=== PATIENT | female | born 1950 | race African-American/Black ===

== ENCOUNTER 2017-08-11 13:27 | Emergency (ER) | payer MEDICARE ==
--- NOTE | 2017-08-11 14:54 | RAD ---
PORTABLE UPRIGHT FRONTAL CHEST RADIOGRAPH: 08/11/2017 HISTORY: Trauma. Fall. COMPARISON: None. FINDINGS: Bilateral total shoulder arthroplasties are present. No pneumothorax, pleural fluid, focal consolida tion, or alveolar edema. Heart and mediastinal contours are stable. IMPRESSION: No acute findings. POS: [facility]
--- NOTE | 2017-08-11 14:57 | RAD ---
RIGHT SHOULDER THREE VIEWS: 08/11/2017 HISTORY: Fall. Trauma. Pain. COMPARISON: None. FINDINGS: There is mild degenerative change at the right acromioclavicular interspace. No widening of the AC o r CC interspace is seen. There is a total shoulder arthroplasty on the right with no evidence for ac twenty-nine palms fracture or dislocation. IMPRESSION: No acute findings. POS: [facility]
== END 2017-08-11 14:49 | disposition home or self-care (01) ==
LOC: ERS 13:27
DX: S43.401A Unspecified sprain of right shoulder joint, initial encounter (principal); E78.5 Hyperlipidemia, unspecified; I25.2 Old myocardial infarction; I11.0 Hypertensive heart disease with heart failure; I50.9 Heart failure, unspecified; Z86.73 Personal history of transient ischemic attack (TIA), and cerebral infarction without residual deficits; Z79.899 Other long term (current) drug therapy; W07.XXXA Fall from chair, initial encounter
CPT/HCPCS: 71045

== ENCOUNTER 2017-09-02 14:20 | Outpatient (CLI) | payer MEDICARE | END 2017-09-02 14:21 | disposition home or self-care (01) | LOC: BICMAMMO 14:20 | PROVIDERS: ATTEND Family Medicine | DX: Z12.31 Encounter for screening mammogram for malignant neoplasm of breast (principal) | CPT/HCPCS: 77063; 77067 ==

== ENCOUNTER 2017-10-05 21:39 | Inpatient (IN) | payer MEDICARE ==
[2017-10-05 23:06] LABS: Band 9 % (5-11); Hypochromia SLIGHT = 6-15 cells (100X) (0-5/hpf); Large Platelets SLIGHT; Lymphocytes 17 % (21-51); MDiff Complete? YES; Macrocytosis SLIGHT = 6-15 cells (100X) (0-5/hpf); Mean Corpuscular HGB CONC 32.9 g/dL (32.0-36.0); Mean Corpuscular Hemoglobin 37.7 pg (27.0-31.0); Mean Platelet Volume 11.3 fL (7.4-10.4); Monocytes 5 % (0-10); Neutrophil 69 % (42-75); PLT Morphology Comment Appears Increased; Platelet Count 428 thou/uL (130-400); RBC Distribution Width 16.4 % (11.5-14.5); White Blood Cell (WBC) Count 4.9 thou/uL (4.8-10.8)
[2017-10-05 23:07] LABS: ALT (SGPT) 16 U/L (8-55); AST (SGOT) 15 U/L (5-34); Alkaline Phosphatase 105 U/L (40-150); Anion Gap 16 mmol/L (10-20); BUN (Urea Nitrogen) 11 mg/dL (9.8-20.1); Bilirubin, Total 0.6 mg/dL (0.2-1.2); Calc. Creatinine Clearance 0 mL/min (70-130); Calcium 9.3 mg/dL (7.8-10.44); Carbon Dioxide 22 mmol/L (23-31); Chloride 100 mmol/L (98-107); Estimated GFR-MDRD 54; Globulin 3.5 g/dL (2.4-3.5); Glucose 487 mg/dL (80-115); Potassium 3.7 mmol/L (3.5-5.1); Protein, Total 7.5 g/dL (6.0-8.3); Sodium 134 mmol/L (136-145)
[2017-10-05 23:12] LABS: Troponin I 0.017 ng/mL (< 0.028)
--- NOTE | 2017-10-05 23:26 | RAD ---
FRONTAL VIEW CHEST: 10/05/17 COMPARISON: 08/11/17 INDICATION: Cough. History of fainting. Prior myocardial infarction. FINDINGS: There is accentuation of the cardiac silhouette by portable technique. There is enlargement of the pu lmonary vasculature. No significant effusion or discrete pneumothorax. Leads overlying chest limiting detail. Chest otherwise similar appearing. IMPRESSION: Evidence of mild edema, indicating CHF. Correlate clinically. Imaging followup may prove useful to confirm resolution. POS: [facility]
[2017-10-05 23:27] LABS: CK (CPK) 50 U/L (29-168); Lipase 17 U/L (8-78)
[2017-10-06] MEDS ORDERED: Furosemide 40 MG/4 ML VIAL ONE (00:05)
--- NOTE | 2017-10-06 00:35 | PDOC.FPRHP ---
- History of Present Illness Chief Complaint: SOB and syncope History of Present Illness: Patient is a 67YO AAF w/ a PMH significant for CHF with preserved EF & HTN who presents to the ED with a chief complaint of progressively worsening SOB with exertion that has been ongoing for the last month. The patient states that her SOB has gotten so bad that she is barely able to stand and walk from room to room in her home without assistance. She also endorses some associated chest and abdominal pain that she describes as the worst pain that she has felt in her life that is exacerbated with standing and movement. She also endorses an associated cough that is occasionally productive of clear sputum and nausea. Lastly, the patient's daughter reports 2 syncopal episodes that she witnessed today while helping her mother from the bathroom and to her bedroom. The daughter stated that upon standing the patient lost consciousness for several seconds and felt very warm and was shaky. The patient states that she has never had syncopal episodes like this prior to today which prompted her to come to the ED for evaluation. ED Course: Patient was given 40mg IV lasix and 81mg ASA. - Allergies/Adverse Reactions Allergies Allergy/AdvReac Type Severity Reaction Status Date / Time adhesive Allergy Verified 06/13/16 10:12 cefazolin sodium [From Ancef] Allergy Rash Verified 06/13/16 10:12 Cephalosporins Allergy Rash Verified 06/13/16 10:12 codeine Allergy Hives Verified 06/13/16 10:12 Iodinated Contrast- Oral and Allergy Emesis Verified 06/13/16 10:12 IV Dye [Iodinated Contrast Media - IV Dye] meperidine HCl [From Demerol] Allergy Rash Verified 06/13/16 10:12 naproxen sodium [From Aleve] Allergy "chest Verified 06/13/16 10:12 pain" peanut Allergy Verified 06/13/16 10:12 - Home Medications Medication Instructions Recorded Confirmed Type Omeprazole 20 mg PO DAILY 11/04/16 10/06/17 History Aspirin [Aspirin Chewable Tablet] 81 mg PO DAILY #30 tab 11/05/16 10/06/17 Rx Albuterol Sulfate HFA (OR) 0 puff INH PRN PRN 10/06/17 10/06/17 History [Proventil Hfa (or)] Aspirin 81 mg PO HS 10/06/17 10/06/17 History Atorvastatin Calcium [Lipitor] 40 mg PO HS 10/06/17 10/06/17 History Cholecalciferol (Vitamin D3) 1,000 unit PO DAILY 10/06/17 10/06/17 History [Vitamin D3] Lisinopril/Hydrochlorothiazide 1 tablet PO DAILY PRN 10/06/17 10/06/17 History [Lisinopril-Hctz 20-25 mg Tab] Loratadine [Claritin] 10 mg PO DAILY 10/06/17 10/06/17 History Triamcinolone Acetonide [Nasacort 2 spray EA NARE DAILY PRN 10/06/17 10/06/17 History Allergy 24 HR] - History PMHx: h/o CVA & TX, HTN, DMII, HLD, GERD, macrocytic anemia PSHx: Laparoscopic laminectomy, herniated disc replacement, section., bilateral shoulder shoulder sx,. B/L knee replacement FHx: Mother & father from MIs Social: No EtOH, tobacco or drug abuse. - Review of Systems General: reports: weight/appetite/sleep changes. denies: fever/chills Eyes: denies: eye pain, vision changes ENT: denies: nasal congestion, rhinorrhea Respiratory: reports: cough, shortness of breath, exercise intolerance Cardiovascular: reports: chest pain, paroxysmal nocturnal dyspnea, orthopnea. denies: palpitation Gastrointestinal: reports: nausea, abdominal pain. denies: vomiting, diarrhea, constipation, GI bleeding Genitourinary: denies: dysuria Skin: denies: rashes Musculoskeletal: reports: tenderness. denies: swelling Neurological: reports: syncope. denies: seizure - Vital signs BP: 102/78 HR: 82 RR: 19 Tmax: 97.9F Pox: 95% on 5.0L nasal canula Wt: 110.68kg - Physical Exam Constitutional: awake, alert and oriented, other (In moderate distress 2/2 difficulty breathing.) HEENT: normocephalic and atraumatic, EOMI, conjunctiva clear, grossly normal vision, grossly normal hearing Neck: FROM Chest: other (tender to palpation over left chest) Heart: RRR, normal S1/S2, no murmurs/rubs/gallops, pulses present, no edema Lungs: CTAB, no respiratory distress, good air movement, no wheezing Abdomen: soft, non-tender, bowel sounds present, no masses/distention Musculoskeletal: normal structure, ROM grossly normal Neurological: no focal deficit, CN II-XII intact, normal sensation Skin: no rash/lesions, good turgor Heme/Lymphatic: no unusual bruising or bleeding Psychiatric: normal mood and affect, good judgment and insight, intact recent and remote memory FMR H&P: Results - Labs Result Diagrams: 10/05/17 22:36 10/05/17 22:36 Lab results: WBC 4.9 thou/uL (4.8-10.8) 10/05/17 22:36 Hgb 9.0 g/dL (12.0-16.0) L 10/05/17 22:36 Hct 27.5 % (36.0-47.0) L 10/05/17 22:36 MCV 114.0 fL (78.0-98.0) H 10/05/17 22:36 Plt Count 428 thou/uL (130-400) H 10/05/17 22:36 Band Neuts % (Manual) 9 % (5-11) 10/05/17 22:36 Sodium 134 mmol/L (136-145) L 10/05/17 22:36 Potassium 3.7 mmol/L (3.5-5.1) 10/05/17 22:36 Chloride 100 mmol/L (98-107) 10/05/17 22:36 Carbon Dioxide 22 mmol/L (23-31) L 10/05/17 22:36 BUN 11 mg/dL (9.8-20.1) 10/05/17 22:36 Creatinine 1.20 mg/dL (0.6-1.1) H 10/05/17 22:36 Glucose 487 mg/dL (80-115) H 10/05/17 22:36 Calcium 9.3 mg/dL (7.8-10.44) 10/05/17 22:36 Total Bilirubin 0.6 mg/dL (0.2-1.2) 10/05/17 22:36 AST 15 U/L (5-34) 10/05/17 22:36 ALT 16 U/L (8-55) 10/05/17 22:36 Alkaline Phosphatase 105 U/L (40-150) 10/05/17 22:36 Creatine Kinase 50 U/L (29-168) 10/05/17 22:36 CK-MB (CK-2) 1.0 ng/mL (0-6.6) 10/05/17 22:36 B-Natriuretic Peptide 366.9 pg/mL (0-100) H 10/05/17 22:36 Serum Total Protein 7.5 g/dL (6.0-8.3) 10/05/17 22:36 Albumin 4.0 g/dL (3.4-4.8) 10/05/17 22:36 Lipase 17 U/L (8-78) 10/05/17 22:36 - Radiology Interpretation Chest x-ray Status: image reviewed by me, report reviewed by me (Mild pulmonary edema consistent with CHF.) FMR H&P: A/P - Problem List (1) Diastolic congestive heart failure Current Visit: No Status: Acute Code(s): I50.30 - UNSPECIFIED DIASTOLIC ( CONGESTIVE) HEART FAILURE (2) Diabetes mellitus type 2 in obese Current Visit: Yes Status: Acute Code(s): E11.69 - TYPE 2 DIABETES MELLITUS WITH OTHER SPECIFIED COMPLICATION; E66.9 - OBESITY, UNSPECIFIED (3) LUISA (acute kidney injury) Current Visit: Yes Status: Acute Code(s): N17.9 - ACUTE KIDNEY FAILURE, UNSPECIFIED (4) HTN (hypertension) Current Visit: Yes Status: Chronic Code(s): I10 - ESSENTIAL (PRIMARY) HYPERTENSION (5) HLD (hyperlipidemia) Current Visit: No Status: Acute Code(s): E78.5 - HYPERLIPIDEMIA, UNSPECIFIED (6) GERD (gastroesophageal reflux disease) Current Visit: No Status: Acute Code(s): K21.9 - GASTRO-ESOPHAGEAL REFLUX DISEASE WITHOUT ESOPHAGITIS (7) Macrocytic anemia Current Visit: No Status: Acute Code(s): D53.9 - NUTRITIONAL ANEMIA, UNSPECIFIED - Plan 67YOF w/ PMH of CHF w/ preserved EF, h/o TX & CVA, HTN, and HLD who comes in with a CC of increased SOB on exertion that has gotten progressively worse over the last month with associated atypical chest pain and 2 syncopal episodes today prior to presentation. 1. Acute Hypoxic Respiratory Distress: - Could be 2/2 an acute CHF exacerbation vs. a PE - Patient satting around 95% on 5-5.5L via nasal canula. Will order an ABG & wean O2 supplementation as tolerated. - CXR significant for mild pulmonary edema. Was given 1 dose of IV lasix in ED but will not continue for now as PE was not remarkable for fluid overload. - Will order a duoneb treatment and reassess patient for signs of improvement. - Will get a VQ scan to r/o an PE. 2. Atypical chest pain: - Could be 2/2 costochondritis from coughing vs. anemia. TX less likely as troponin was negative. - Was given 81mg ASA in the ED. - Getting a VQ scan to r/o a PE. 3. LUISA: - BUN:Cr ratio of 9 suggesting an intrinsic cause. - Will order a urine Na & Cr & urine microalbumin. - Will continue with PO hydration. 4. Macrocytic anemia: - Hgb 9 on admission. - Will type and screen and consider pRBC transfusion if VQ scan is negative. 5. CHF with preserved EF: - Will order an echo. - Will resume home meds. 6. HTN: - Will resume home meds 7. HLD: - Will resume home meds 8. DMII: - Not on any medications at home but BG on admission was 487. - Will start on sliding scale and check an A1c. 9. GERD: - Will resume home meds. 10. h/o CVA: - Aware. - Will resume home meds. 11. h/o TX: - Aware. - Will resume home meds. FMR H&P: Upper Level - Pertinent history Lanette Mendez is a 67 year old female who presented to the ED with progressive dyspnea with exertion and reduced exercise tolerance. She complains of significant shortness of breath that has been ongoing for several weeks. She reports having 2 syncopal episodes yesterday which were witnessed by her daughters. These occurred as patient was trying to ambulate to the bathroom. - Pertinent findings Patient experiencing significant respiratory distress on 2L NC and satting in the 80s. Experiencing dyspnea with exertion and only able to speak in short sentences. Oxygen increased from 2 L to 5 L. Oxygen saturations improved, and patient appears more comfortable after several minutes. - Plan Date/Time: 10/06/17 0029 I, Stephanie Cardenas, have evaluated this patient and agree with findings/plan as outlined by project management intern resident. Pertinent changes/additions are listed here. Acute hypoxic respiratory failure -differentials include CHF exacerbation, PE. - will obtain V/Q scan due to iodine contrast allergy - given elevated BNP and history of CHF will continue treatment for presumed CHF exacerbation until VQ comes back - will get Echo as well. Acute kidney injury - BUN:Cr < 20; - likely related to intrinsic causes; urine studies for further eval Diabetes Mellitus - A1C - pt will likely need insulin. Hyperlipidemia - continue home meds GERD - continue home meds. Attending Addendum - Attending Addendum Date/Time: 10/06/17 9980 I personally evaluated the patient and discussed the management with Dr. Vega. I agree with the History, Examination, Assessment and Plan documented above with any addition or exceptions noted below. The patient's VQ scan is suggestive of PE. She is requiring 5 L Oxygen via NC. Trops are indeterminate and we will continue trending. LE dopplers are ordered. Echo is pending. Will treat with therapeutic lovenox.
[2017-10-06 02:15] LABS: Troponin I 0.043 ng/mL (< 0.028)
[2017-10-06] MEDS ORDERED: Dextrose 5% in Water 1,000 ML IV PRN ×2 (02:29→19:34)
[2017-10-06] MEDS ORDERED: Insulin Regular 300 UNITS/3 ML VIAL SC PRN (02:29)
[2017-10-06] MEDS ORDERED: Dextrose 50% Abboject 50 ML SYRINGE SLOW IVP PRN ×2 (02:29→19:34)
[2017-10-06 05:09] LABS: Hemoglobin A1c 14.5 % (4.0-6.0)
[2017-10-06 05:23] VITALS: BMI 36.9
[2017-10-06 05:24] LABS: Troponin I 0.035 ng/mL (< 0.028)
[2017-10-06] MEDS ORDERED: Furosemide 40 MG/4 ML VIAL SLOW IVP SCH (06:00)
[2017-10-06 06:38] LABS: Creatinine, Urine 43.45 mg/dL (47-110); Microalbumin Urine 2.2 mg/dL (0.5-50.0); Microalbumin/Creat Ratio 50.6 mg/g (Less than 30)
--- NOTE | 2017-10-06 08:08 | NM ---
PRELIMINARY REPORT/[facility]/EMERGENTY AFTER-HOURS PROCEDURE NM Lung Perfusion and Ventilation Scan EXAM DATE/TIME: Exam ordered 10/06/2017 3:44 AM CLINICAL HISTORY: 67 years old, female; Signs and symptoms; Dyspnea; Patient HX: Dvt, dyspnea TECHNIQUE: Nuclear Medicine ventilation and perfusion images of the lungs were obtained in multiple projections following radiopharmaceutical inhalation followed by injection of Tc99m MAA. COMPARISON: No relevant prior studies available. FINDINGS: Ventilation: Normal anterior and posterior projection ventilation images. Perfusion: There is equal to 2 large perfusion defects in the left lung and the equivalent of one lar ge and one moderate sized perfusion defect in the right lung, all of which appear unmatched comparati ve ventilation image. No chest radiograph provided for correlation. IMPRESSION: In the absence of the chest radiograph, these findings could represent intermediate or high probabili ty for pulmonary embolus, faver high probability for pulmonary embolus. Recommend correlation with est radiograph. Findings discussed with Shania Meredith RN at time of interpretation. Thank you for allowing us to participate in the care of your patient. Dictated and Authenticated by: Merrick Red MD 10/06/2017 5:32 AM Central Time ([place] & [place]) FINAL REPORT VENTILATION PERFUSION SCAN: History: 67-year-old with dyspnea. Dose: 6.6 mCi Technetium 99M MAA for the perfusion portion of the exam and 9.5 mCi Xenon 133 for vent ilation portion. FINDINGS: Images demonstrate areas of perfusion defects seen in the right and left lung. There appears to be tw o large areas on the left and one large area on the right. Findings concerning for pulmonary emboli. IMPRESSION: High probability lung perfusion scan for pulmonary emboli. POS: [facility]
[2017-10-06] MEDS: Enoxaparin Sodium 100 MG/ML SYRINGE SC SCH ×2 (08:41→21:11)
[2017-10-06] MEDS: Lisinopril/Hydrochlorothiazide 20/25 mg Tablet PO SCH ×2 (08:42→21:11)
--- NOTE | 2017-10-06 08:59 | ULT ---
VENOUS DUPLEX SONOGRAM BILATERAL LOWER EXTREMITY: HISTORY: Dyspnea. Pulmonary embolus. FINDINGS: Good color and spectral Doppler flow are present within the common femoral veins and greater saphenou s junctions, the femoral and deep femoral vein, and the left popliteal and posterior tibial veins. Echogenic thrombus with lack of compressibility involves the right popliteal and posterior tibial vei ns. IMPRESSION: Deep vein thrombosis involving the right popliteal and posterior tibial veins. Patient with known ab normal ventilation perfusion lung scan and pulmonary embolus. POS: [facility]
[2017-10-06] MEDS ORDERED: Non-Formulary Item 1 EACH (Omeprazole [Omeprazole] 20 MG) PO SCH (09:00)
[2017-10-06] MEDS ORDERED: Enoxaparin Sodium 40 MG/0.4 ML SYRINGE SC SCH (09:00)
[2017-10-06 09:42] LABS: Troponin I 0.049 ng/mL (< 0.028)
[2017-10-06 11:25] LABS: pH, Arterial 7.58 (7.35-7.45)
[2017-10-06 11:26] LABS: Actual Bicarbonate (HCO3a) 22.9 mEq/L (22-28); Base Excess (BEa) 2.6 mEq/L (-2.0 to +3.0); CO2 Tension 25.1 mmHg (35.0-45.0); O2 Tension (PaO2) 59.2 mmHg (> 80.0)
[2017-10-06 11:27] LABS: ALV-art Gradient 166.105 (0-20); Analyzer IN Cardio OR; Potassium - ABG Lab 3.6 mmol/L (3.70-5.30); Puncture Site RRA
--- NOTE | 2017-10-06 11:36 | PDOC.FM ---
- Subjective Subjective: pt. just returned from doppler ultrasound. was feeling mildly short of breath, just had NC placed back on. no reported leg pain or chest pressure. - Objective MAR Reviewed: Yes Vital Signs & Weight: Vital Signs (12 hours) Temp Pulse Resp BP Pulse Ox 10/06/17 08:35 88 18 104/62 93 L 10/06/17 07:18 97.7 F 87 20 107/62 93 L 10/06/17 04:10 93 L 10/06/17 03:35 20 10/06/17 02:20 96.3 F L 100 18 94 L Weight Weight 110.314 kg Result Diagrams: 10/05/17 22:36 10/05/17 22:36 <Елена Atwood - Last Filed: 10/06/17 20:25> - Objective Vital Signs & Weight: Vital Signs (12 hours) Temp Pulse Pulse Pulse Resp BP BP 10/07/17 12:00 98.0 F 86 18 10/07/17 11:50 86 92 101/65 10/07/17 09:31 86 100/57 L 10/07/17 08:00 98.2 F 86 20 10/07/17 07:20 10/07/17 03:56 98.5 F 89 20 10/07/17 02:44 BP BP BP Pulse Ox 10/07/17 12:00 101/65 95 10/07/17 11:50 108/68 10/07/17 09:31 10/07/17 08:00 100/57 L 95 10/07/17 07:20 94 L 10/07/17 03:56 98/55 L 93 L 10/07/17 02:44 99 Weight Weight 110.314 kg I&O: 10/06/17 10/07/17 10/08/17 06:59 06:59 06:59 Intake Total 1380 Output Total 3350 -1969 Result Diagrams: 10/07/17 05:05 10/07/17 05:05 <Renuka Colmenares - Last Filed: 10/07/17 13:38> Phys Exam - Physical Examination Constitutional: NAD Respiratory: no wheezing, no rales, no rhonchi, clear to auscultation bilateral Cardiovascular: RRR, no significant murmur Gastrointestinal: soft, non-tender Musculoskeletal: no edema, pulses present Neurological: moves all 4 limbs Psychiatric: normal affect, A&O x 3 <Елена Atwood - Last Filed: 10/06/17 20:25> Dx/Plan (1) Pulmonary embolus Code(s): I26.99 - OTHER PULMONARY EMBOLISM WITHOUT ACUTE COR PULMONALE Status : Acute (2) DVT (deep venous thrombosis) Code(s): I82.409 - ACUTE EMBOLISM AND THOMBOS UNSP DEEP VN UNSP LOWER EXTREMITY Status: Acute (3) LUISA (acute kidney injury) Code(s): N17.9 - ACUTE KIDNEY FAILURE, UNSPECIFIED Status: Acute (4) Diabetes mellitus type 2 in obese Code(s): E11.69 - TYPE 2 DIABETES MELLITUS WITH OTHER SPECIFIED COMPLICATION; E66.9 - OBESITY, UNSPECIFIED Status: Acute (5) HTN (hypertension) Code(s): I10 - ESSENTIAL (PRIMARY) HYPERTENSION Status: Chronic (6) GERD (gastroesophageal reflux disease) Code(s): K21.9 - GASTRO-ESOPHAGEAL REFLUX DISEASE WITHOUT ESOPHAGITIS Status: Acute (7) HLD (hyperlipidemia) Code(s): E78.5 - HYPERLIPIDEMIA, UNSPECIFIED Status: Acute - Plan Plan: 67 yo F with DVT, PE 1. DVT and PE -confirmed with doppler and V/Q -on therapeutic lovenox -will order anti factor X (4 hrs after last dose) to check if therapeutic dose -non-hypoxic on non-rebreather -if worsens consider bipap and transfer to [facility] 2. DM -HbA1c 14, POC was 500s -continue aggressive sliding scale -start on metformin -diabetic education 3. HTN -continue home meds 4. h/o TN -aware, continue home meds 5. h/o CVA -aware, continue home meds Plan discussed with dr. colmenares <Елена Atwood - Last Filed: 10/06/17 20:25> (1) Diastolic congestive heart failure Code(s): I50.30 - UNSPECIFIED DIASTOLIC (CONGESTIVE) HEART FAILURE Status: Acute (2) Diabetes mellitus type 2 in obese Code(s): E11.69 - TYPE 2 DIABETES MELLITUS WITH OTHER SPECIFIED COMPLICATION; E66.9 - OBESITY, UNSPECIFIED Status: Acute (3) LUISA (acute kidney injury) Code(s): N17.9 - ACUTE KIDNEY FAILURE, UNSPECIFIED Status: Acute (4) HTN (hypertension) Code(s): I10 - ESSENTIAL (PRIMARY) HYPERTENSION Status: Chronic (5) HLD (hyperlipidemia) Code(s): E78.5 - HYPERLIPIDEMIA, UNSPECIFIED Status: Acute (6) GERD (gastroesophageal reflux disease) Code(s): K21.9 - GASTRO-ESOPHAGEAL REFLUX DISEASE WITHOUT ESOPHAGITIS Status: Acute (7) Macrocytic anemia Code(s): D53.9 - NUTRITIONAL ANEMIA, UNSPECIFIED Status: Acute <Renuka Colmenares - Last Filed: 10/07/17 13:38> Attending Addendum - Attending Addendum Date/Time: 10/06/17 0165 I personally evaluated the patient and discussed the management with Dr. Atwood. I agree with the History, Examination, Assessment and Plan documented above with any addition or exceptions noted below. Pt seen and evaluated. She was tachypnic and nurses had trouble getting o2 sats. Respiratory natalie abg. Pt slowed breathing down and sats were 95% on 5 L via nc. Pt with PE and DVT on therapeutic lovenox. <Renuka Colmenares - Last Filed: 10/07/17 13:38>
[2017-10-06 13:02] LABS: Troponin I 0.055 ng/mL (< 0.028)
[2017-10-06] MEDS: metFORMIN 500 MG TAB PO SCH (16:39)
[2017-10-06] MEDS ORDERED: Insulin Regular 300 UNITS/3 ML VIAL SC SCH (16:45)
[2017-10-06 17:22] LABS: Troponin I 0.045 ng/mL (< 0.028)
[2017-10-06] MEDS: Atorvastatin Calcium 40 MG TAB PO SCH (21:11)
[2017-10-06] MEDS: HumaLOG 300 UNITS/3 ML VIAL SC PRN (21:20)
[2017-10-07 05:47] LABS: ALT (SGPT) 13 U/L (8-55); AST (SGOT) 15 U/L (5-34); Albumin 3.6 g/dL (3.4-4.8); Alkaline Phosphatase 95 U/L (40-150); Anion Gap 12 mmol/L (10-20); BUN (Urea Nitrogen) 15 mg/dL (9.8-20.1); Bilirubin, Total 0.7 mg/dL (0.2-1.2); Calc. Creatinine Clearance 91 mL/min (70-130); Calcium 8.9 mg/dL (7.8-10.44); Carbon Dioxide 28 mmol/L (23-31); Chloride 99 mmol/L (98-107); Estimated GFR-MDRD 65; Globulin 3.4 g/dL (2.4-3.5); Glucose 147 mg/dL (80-115); Potassium 3.2 mmol/L (3.5-5.1); Sodium 136 mmol/L (136-145)
[2017-10-07 05:55] LABS: Band 10 % (5-11); Eosinophils 1 % (0-10); Hemoglobin 8.7 g/dL (12.0-16.0); Lymphocytes 53 % (21-51); MDiff Complete? YES; Mean Corpuscular HGB CONC 33.4 g/dL (32.0-36.0); Mean Corpuscular Hemoglobin 38.3 pg (27.0-31.0); Mean Platelet Volume 10.8 fL (7.4-10.4); Monocytes 4 % (0-10); Neutrophil 32 % (42-75); PLT Morphology Comment Appears Adequate; Platelet Count 392 thou/uL (130-400); Red Blood Cell (RBC) Count 2.27 mill/uL (4.20-5.40); White Blood Cell (WBC) Count 5.8 thou/uL (4.8-10.8)
[2017-10-07] MEDS ORDERED: Potassium Chloride 40 MEQ in Premix Bag 1 BAG IVPB SCH (06:30)
[2017-10-07] MEDS ORDERED: Potassium Chloride 20 MEQ in Premix Bag 1 BAG IVPB SCH (07:00)
[2017-10-07] MEDS ORDERED: Prevnar 13-Val Conj/PF 0.5 ML SYRINGE IM ONE (09:00)
[2017-10-07] MEDS: metFORMIN 500 MG TAB PO SCH ×2 (09:29→17:40)
[2017-10-07] MEDS: Lisinopril/Hydrochlorothiazide 20/25 mg Tablet PO SCH ×2 (09:31→20:41)
[2017-10-07] MEDS: Potassium Chloride 20 MEQ in Premix Bag 1 BAG IVPB SCH ×2 (09:32→10:48)
[2017-10-07] MEDS: Enoxaparin Sodium 100 MG/ML SYRINGE SC SCH ×2 (09:32→20:42)
--- NOTE | 2017-10-07 09:33 | PDOC.FM ---
- Subjective Subjective: no acute events overnight. pt still has chest pain and feels SOB worse with exertion and walking - Objective MAR Reviewed: Yes Vital Signs & Weight: Vital Signs (12 hours) Temp Pulse Resp BP Pulse Ox 10/07/17 08:00 86 20 100/57 L 95 10/07/17 07:20 94 L 10/07/17 03:56 98.5 F 89 20 98/55 L 93 L 10/07/17 02:44 99 10/06/17 23:42 98.9 F 89 22 H 99/63 93 L Weight Weight 110.314 kg I&O: 10/06/17 10/07/17 10/08/17 06:59 06:59 06:59 Intake Total 1380 Output Total 3350 Result Diagrams: 10/07/17 05:05 10/07/17 05:05 <Елена Atwood - Last Filed: 10/07/17 09:29> - Objective Vital Signs & Weight: Vital Signs (12 hours) Temp Pulse Pulse Pulse Resp BP BP 10/07/17 12:00 98.0 F 86 18 10/07/17 11:50 86 92 101/65 10/07/17 09:31 86 100/57 L 10/07/17 08:00 98.2 F 86 20 10/07/17 07:20 BP BP BP Pulse Ox 10/07/17 12:00 101/65 95 10/07/17 11:50 108/68 10/07/17 09:31 10/07/17 08:00 100/57 L 95 10/07/17 07:20 94 L Weight Weight 110.314 kg I&O: 10/06/17 10/07/17 10/08/17 06:59 06:59 06:59 Intake Total 1380 Output Total 3350 Result Diagrams: 10/07/17 05:05 10/07/17 05:05 <Renuka Paul - Last Filed: 10/07/17 17:08> Phys Exam - Physical Examination Respiratory: no wheezing, no rhonchi, clear to auscultation bilateral Psychiatric: A&O x 3 Deviation from normal: mild TTP in BLE, no swelling, erythema or palpable cord <Елена Atwood - Last Filed: 10/07/17 09:29> Dx/Plan (1) Pulmonary embolus Code(s): I26.99 - OTHER PULMONARY EMBOLISM WITHOUT ACUTE COR PULMONALE Status : Acute (2) DVT (deep venous thrombosis) Code(s): I82.409 - ACUTE EMBOLISM AND THOMBOS UNSP DEEP VN UNSP LOWER EXTREMITY Status: Acute (3) LUISA (acute kidney injury) Code(s): N17.9 - ACUTE KIDNEY FAILURE, UNSPECIFIED Status: Acute (4) Diabetes mellitus type 2 in obese Code(s): E11.69 - TYPE 2 DIABETES MELLITUS WITH OTHER SPECIFIED COMPLICATION; E66.9 - OBESITY, UNSPECIFIED Status: Acute (5) HTN (hypertension) Code(s): I10 - ESSENTIAL (PRIMARY) HYPERTENSION Status: Chronic (6) GERD (gastroesophageal reflux disease) Code(s): K21.9 - GASTRO-ESOPHAGEAL REFLUX DISEASE WITHOUT ESOPHAGITIS Status: Acute (7) HLD (hyperlipidemia) Code(s): E78.5 - HYPERLIPIDEMIA, UNSPECIFIED Status: Acute - Plan Plan: 67 yo F with history of DVT here with DVT/PE 1. Unprovoked DVT and PE -non hyposic on 5L NC -therapeutic lovenox 2. Macrocytic anemia 3. Hypokalemia -replaced -checked mg 4. DM -controlled -started metformin -aggressive SS -diabetes education 5.Low BPs -hold lisinopril dose is SBP <100 dvt ppx: th lovenox dispo: wean O2, pain control discussed with Dr. Paul <Елена Atwood - Last Filed: 10/07/17 09:29> (1) Diastolic congestive heart failure Code(s): I50.30 - UNSPECIFIED DIASTOLIC (CONGESTIVE) HEART FAILURE Status: Acute (2) Diabetes mellitus type 2 in obese Code(s): E11.69 - TYPE 2 DIABETES MELLITUS WITH OTHER SPECIFIED COMPLICATION; E66.9 - OBESITY, UNSPECIFIED Status: Acute (3) LUISA (acute kidney injury) Code(s): N17.9 - ACUTE KIDNEY FAILURE, UNSPECIFIED Status: Acute (4) HTN (hypertension) Code(s): I10 - ESSENTIAL (PRIMARY) HYPERTENSION Status: Chronic (5) HLD (hyperlipidemia) Code(s): E78.5 - HYPERLIPIDEMIA, UNSPECIFIED Status: Acute (6) GERD (gastroesophageal reflux disease) Code(s): K21.9 - GASTRO-ESOPHAGEAL REFLUX DISEASE WITHOUT ESOPHAGITIS Status: Acute (7) Macrocytic anemia Code(s): D53.9 - NUTRITIONAL ANEMIA, UNSPECIFIED Status: Acute <Renuka Paul - Last Filed: 10/07/17 17:08> Attending Addendum - Attending Addendum Date/Time: 10/07/17 3107 I personally evaluated the patient and discussed the management with Dr. Atwood. I agree with the History, Examination, Assessment and Plan documented above with any addition or exceptions noted below. Patient is much less anxious this morning. She has however agreed to start an ssri. She is still requiring 5 L oxygen but is breathing easier. Will continue current treatment and try to wean O2. <Renuka Paul - Last Filed: 10/07/17 17:08>
[2017-10-07] MEDS ORDERED: Potassium Chloride 20 MEQ TAB PO SCH (10:30)
[2017-10-07] MEDS: Acetaminophen 325 MG TAB PO PRN (10:48)
[2017-10-07] MEDS: HumaLOG 300 UNITS/3 ML VIAL SC PRN ×2 (11:52→17:41)
--- NOTE | 2017-10-07 12:07 | EKG ---
Test Reason : Blood Pressure : / mmHG Vent. Rate : 078 BPM Atrial Rate : 078 BPM P-R Int : 164 ms QRS Dur : 098 ms QT Int : 442 ms P-R-T Axes : 053 005 -31 degrees QTc Int : 503 ms Normal sinus rhythm T wave abnormality, consider anterior ischemia and possibly inferior ischemia. Prolonged QT Abnormal ECG When compared with ECG of 05-OCT-2017 21:42, (Unconfirmed) Inverted T waves have replaced nonspecific T wave abnormality in Inferior leads T wave inversion now evident in Anterior leads Nonspecific T wave abnormality, improved in Lateral leads QT has lengthened Confirmed by CAIO MCGOWAN ([id number]) on 10/07/2017 12:06:48 PM Referred By: Bismark MASSEY Confirmed By:CAIO MCGOWAN
[2017-10-07] MEDS: Magnesium Chloride 64 MG TAB PO SCH (20:40)
[2017-10-07] MEDS: Atorvastatin Calcium 40 MG TAB PO SCH (20:41)
[2017-10-08] MEDS ORDERED: Fluticasone Propionate Nasal Spray 16 gm Bottle NASAL PRN (05:30)
[2017-10-08 05:37] LABS: ALT (SGPT) 14 U/L (8-55); AST (SGOT) 13 U/L (5-34); Albumin 3.8 g/dL (3.4-4.8); Alkaline Phosphatase 105 U/L (40-150); Anion Gap 13 mmol/L (10-20); BUN (Urea Nitrogen) 15 mg/dL (9.8-20.1); Bilirubin, Total 0.5 mg/dL (0.2-1.2); Calc. Creatinine Clearance 88 mL/min (70-130); Calcium 9.3 mg/dL (7.8-10.44); Carbon Dioxide 24 mmol/L (23-31); Chloride 101 mmol/L (98-107); Estimated GFR-MDRD 64; Globulin 3.6 g/dL (2.4-3.5); Glucose 314 mg/dL (80-115); Potassium 3.6 mmol/L (3.5-5.1); Protein, Total 7.4 g/dL (6.0-8.3); Sodium 134 mmol/L (136-145)
[2017-10-08] MEDS: HumaLOG 300 UNITS/3 ML VIAL SC PRN ×3 (05:38→20:56)
[2017-10-08 06:00] LABS: Iron 97 ug/dL (50-170); Iron Binding Capacity, Total 213 mcg/dL (265-497)
--- NOTE | 2017-10-08 06:06 | PDOC.FM ---
- Subjective Subjective: No acute events overnight. Pt. reports mildly improves chest pressure, only feels SOB with coughing and exertion. Reports BLE feel heavy. - Objective MAR Reviewed: Yes Vital Signs & Weight: Vital Signs (12 hours) Temp Pulse Resp BP BP BP Pulse Ox 10/08/17 04:00 98.0 F 96 20 95/58 L 97 10/07/17 23:59 98.2 F 90 20 86/50 L 99 10/07/17 20:41 85 97/61 10/07/17 19:47 97.7 F 85 21 H 97/61 100 Weight Weight 109.316 kg I&O: 10/06/17 10/07/17 10/08/17 06:59 06:59 06:59 Intake Total 1380 600 Output Total 3350 600 Balance 0 Result Diagrams: 10/08/17 05:02 10/08/17 05:02 <Елена Atwood - Last Filed: 10/08/17 11:53> - Objective Vital Signs & Weight: Vital Signs (12 hours) Temp Pulse Resp BP BP Pulse Ox 10/08/17 16:00 97 F L 93 18 105/58 L 97 10/08/17 12:00 98.2 F 71 18 106/62 96 10/08/17 08:53 68 10/08/17 08:10 98.3 F 68 20 10/08/17 08:00 97.6 F 68 18 103/66 100 Weight Weight 109.316 kg I&O: 10/07/17 10/08/17 10/09/17 06:59 06:59 06:59 Intake Total 1380 960 240 Output Total 3350 2075 400 Balance -1969 -1115 -160 Result Diagrams: 10/08/17 05:02 10/08/17 05:02 <Renuka Paul - Last Filed: 10/08/17 19:54> Phys Exam - Physical Examination Constitutional: NAD HEENT: moist MMs, TM's clear Neck: supple, full ROM Respiratory: no wheezing, no rales, clear to auscultation bilateral Cardiovascular: RRR, no significant murmur Gastrointestinal: soft, non-tender Musculoskeletal: pulses present BLE trace edema Neurological: non-focal, moves all 4 limbs Psychiatric: normal affect, A&O x 3 Skin: no rash, normal turgor, cap refill <2 seconds <Елена Atwood - Last Filed: 10/08/17 11:53> Dx/Plan (1) Pulmonary embolus Code(s): I26.99 - OTHER PULMONARY EMBOLISM WITHOUT ACUTE COR PULMONALE Status : Acute (2) DVT (deep venous thrombosis) Code(s): I82.409 - ACUTE EMBOLISM AND THOMBOS UNSP DEEP VN UNSP LOWER EXTREMITY Status: Acute (3) LUISA (acute kidney injury) Code(s): N17.9 - ACUTE KIDNEY FAILURE, UNSPECIFIED Status: Acute (4) Diabetes mellitus type 2 in obese Code(s): E11.69 - TYPE 2 DIABETES MELLITUS WITH OTHER SPECIFIED COMPLICATION; E66.9 - OBESITY, UNSPECIFIED Status: Acute (5) HTN (hypertension) Code(s): I10 - ESSENTIAL (PRIMARY) HYPERTENSION Status: Chronic (6) GERD (gastroesophageal reflux disease) Code(s): K21.9 - GASTRO-ESOPHAGEAL REFLUX DISEASE WITHOUT ESOPHAGITIS Status: Acute (7) HLD (hyperlipidemia) Code(s): E78.5 - HYPERLIPIDEMIA, UNSPECIFIED Status: Acute (8) History of PA (myocardial infarction) Code(s): I25.2 - OLD MYOCARDIAL INFARCTION Status: Acute (9) History of CVA (cerebrovascular accident) Code(s): Z86.73 - PRSNL HX OF TIA (TIA), AND CEREB INFRC W/O RESID DEFICITS Status: Acute (10) Hypertension Code(s): I10 - ESSENTIAL (PRIMARY) HYPERTENSION Status: Acute (11) Macrocytic anemia Code(s): D53.9 - NUTRITIONAL ANEMIA, UNSPECIFIED Status: Acute - Plan Plan: 67 yo F with acute hyposix respiratory failure 2/2 PE 1. Acute hypoxic respiratory failure 2/2 PE -non hypoxic, continue to wean O2 -transitioned to xarelto 15mg po BID for 21 days --> 20 daily. will need anticoag outpt for >6 mos. (insurance covers) 2. Unprovoked, recurrent DVT -RF: obesity -potential inherited coagulopathy: at3, protein s, protein c ordered -xarelto 3. Macrocytic anemia -folate & b12 WNL -rx outpt workup 4. DM -started on metformin -consulted for diabetic education -will start on home long acting insulin 5. Hypokalemia -replaced, recheck this AM -checked mg 6.Low BPs -hold lisinopril dose is SBP <100 7. h/o CVA -home meds: aspirin 8. b/l leg weakness -likely 2/2 history of lumbar spinal laminectomy -PT rx rehab center, consulted case mgmt for help with this, will order PT screen 9. CKD 2 -likely diabetic nephropathy -uncontrolled DM -monitor and control DM dvt ppx: xarelto discussed with Dr. Paul <Елена Atwood - Last Filed: 10/08/17 11:53> (1) Diastolic congestive heart failure Code(s): I50.30 - UNSPECIFIED DIASTOLIC (CONGESTIVE) HEART FAILURE Status: Acute (2) Diabetes mellitus type 2 in obese Code(s): E11.69 - TYPE 2 DIABETES MELLITUS WITH OTHER SPECIFIED COMPLICATION; E66.9 - OBESITY, UNSPECIFIED Status: Acute (3) LUISA (acute kidney injury) Code(s): N17.9 - ACUTE KIDNEY FAILURE, UNSPECIFIED Status: Acute (4) HTN (hypertension) Code(s): I10 - ESSENTIAL (PRIMARY) HYPERTENSION Status: Chronic (5) HLD (hyperlipidemia) Code(s): E78.5 - HYPERLIPIDEMIA, UNSPECIFIED Status: Acute (6) GERD (gastroesophageal reflux disease) Code(s): K21.9 - GASTRO-ESOPHAGEAL REFLUX DISEASE WITHOUT ESOPHAGITIS Status: Acute (7) Macrocytic anemia Code(s): D53.9 - NUTRITIONAL ANEMIA, UNSPECIFIED Status: Acute <Renuka Paul - Last Filed: 10/08/17 19:54> Attending Addendum - Attending Addendum Date/Time: 10/08/171947 I personally evaluated the patient and discussed the management with Dr. Atwood. I agree with the History, Examination, Assessment and Plan documented above with any addition or exceptions noted below. Pt with PE and DVT. Still noticeably short of breath and requiring 4-5 L oxygen. Continue anticoagulation. Pt was nauseated during our visit but had just received a bunch of her morning meds. Blood sugar remains high. Starting long acting insulin. Physical therapy has recommended inpatient rehab. Will place screen. Discussed this with patient. <Renuka Paul - Last Filed: 10/08/17 19:54>
[2017-10-08 06:24] LABS: Band 15 % (5-11); Hemoglobin 9.4 g/dL (12.0-16.0); Large Platelets SLIGHT; Lymphocytes 33 % (21-51); MDiff Complete? YES; Macrocytosis SLIGHT = 6-15 cells (100X) (0-5/hpf); Mean Corpuscular Hemoglobin 36.3 pg (27.0-31.0); Mean Platelet Volume 11.2 fL (7.4-10.4); Monocytes 4 % (0-10); Neutrophil 48 % (42-75); PLT Morphology Comment Appears Increased; Platelet Count 439 thou/uL (130-400); RBC Distribution Width 16.5 % (11.5-14.5); White Blood Cell (WBC) Count 5.8 thou/uL (4.8-10.8)
[2017-10-08 07:41] LABS: Folate (Folic Acid) 14.7 ng/mL (7.0-31.4)
[2017-10-08] MEDS: Lisinopril/Hydrochlorothiazide 20/25 mg Tablet PO SCH ×2 (08:53→20:57)
[2017-10-08] MEDS: metFORMIN 500 MG TAB PO SCH ×2 (08:53→16:27)
[2017-10-08] MEDS: Loratadine 10 MG TAB PO SCH (08:53)
[2017-10-08] MEDS: Rivaroxaban 15 MG TAB PO SCH ×2 (08:53→16:27)
[2017-10-08] MEDS: Magnesium Chloride 64 MG TAB PO SCH ×2 (08:54→20:55)
[2017-10-08] MEDS ORDERED: Benzonatate 100 MG CAP PO SCH (10:15)
[2017-10-08] MEDS: Acetaminophen 325 MG TAB PO PRN ×2 (10:33→16:27)
[2017-10-08] MEDS: Ondansetron ODT 4 MG TAB PO PRN (12:44)
[2017-10-08 14:30] LABS: Protein C Activity 78 % (78-152)
[2017-10-08 14:32] LABS: Factor VIII Test 309.4 % ACTIVE (56-157)
[2017-10-08 14:44] LABS: HEX PHOS LA Tube 1 71.7 SEC; HEX PHOS LA Tube 2 61.5 SEC; Hexagonal Phospholipid Neut 10.2 SEC (0-8.0)
[2017-10-08 15:03] LABS: D-Dimer Test 1.06 *mcg/mL (0.27-0.43); INR-International Normal Ratio 1.1; PTT 43.7 SEC (22.9-36.1); Prothrombin Time 14.5 SEC (12.0-14.7)
[2017-10-08] MEDS: Insulin Glargine 12 UNITS in Pre-Filled Syringe SC SCH (20:56)
[2017-10-08] MEDS: Atorvastatin Calcium 40 MG TAB PO SCH (20:56)
[2017-10-09 00:18] LABS: Hemoglobin 8.5 g/dL (12.0-16.0); Platelet Count 351 thou/uL (130-400)
[2017-10-09 05:24] LABS: ALT (SGPT) 11 U/L (8-55); AST (SGOT) 12 U/L (5-34); Albumin 3.6 g/dL (3.4-4.8); Alkaline Phosphatase 85 U/L (40-150); Anion Gap 13 mmol/L (10-20); BUN (Urea Nitrogen) 15 mg/dL (9.8-20.1); Bilirubin, Total 0.4 mg/dL (0.2-1.2); Calc. Creatinine Clearance 92 mL/min (70-130); Calcium 9.1 mg/dL (7.8-10.44); Carbon Dioxide 22 mmol/L (23-31); Chloride 101 mmol/L (98-107); Estimated GFR-MDRD 67; Globulin 3.3 g/dL (2.4-3.5); Glucose 153 mg/dL (80-115); Potassium 3.6 mmol/L (3.5-5.1); Protein, Total 6.9 g/dL (6.0-8.3); Sodium 132 mmol/L (136-145)
--- NOTE | 2017-10-09 05:52 | PDOC.FM ---
- Subjective Subjective: Sugars were high right before giving lantus. Improved after adminisration. Still reports feeling SOB with nausea and chest pressureon exertion better with rest. Cough has improved - Objective MAR Reviewed: Yes Vital Signs & Weight: Vital Signs (12 hours) Temp Pulse Resp BP BP Pulse Ox 10/09/17 04:26 98.3 F 93 16 92/55 L 93 L 10/08/17 23:30 98.4 F 79 16 80/50 L 86 L 10/08/17 20:57 80 92/54 L 10/08/17 19:10 97.8 F 80 21 H 92/54 L 96 Weight Weight 109.316 kg I&O: 10/07/17 10/08/17 10/09/17 06:59 06:59 06:59 Intake Total 1380 960 240 Output Total 3350 2075 400 Balance -4657 -6281 -291 Result Diagrams: 10/09/17 04:58 10/09/17 04:58 <Елена Atwood - Last Filed: 10/09/17 08:52> - Objective Vital Signs & Weight: Vital Signs (12 hours) Temp Pulse Resp BP BP Pulse Ox 10/09/17 11:44 98 F 88 18 104/59 L 100 10/09/17 09:27 87 95/52 L 10/09/17 08:41 98 F 92 18 79/49 L 92 L 10/09/17 04:26 98.3 F 93 16 92/55 L 93 L Weight Weight 110.858 kg I&O: 10/08/17 10/09/17 10/10/17 06:59 06:59 06:59 Intake Total 960 960 Output Total 2075 1300 Balance -3290 -625 Result Diagrams: 10/09/17 04:58 10/09/17 04:58 <Renuka Paul - Last Filed: 10/09/17 15:36> Phys Exam - Physical Examination Constitutional: NAD HEENT: moist MMs, TM's clear Neck: full ROM Respiratory: no wheezing, no rales, clear to auscultation bilateral Cardiovascular: RRR, no significant murmur Gastrointestinal: soft, non-tender, no distention Musculoskeletal: no edema, pulses present difficult active ROM with legs Neurological: non-focal, moves all 4 limbs Psychiatric: normal affect, A&O x 3 Skin: no rash, cap refill <2 seconds <RaiЕлена - Last Filed: 10/09/17 08:52> Dx/Plan (1) Pulmonary embolus Code(s): I26.99 - OTHER PULMONARY EMBOLISM WITHOUT ACUTE COR PULMONALE Status : Acute (2) DVT (deep venous thrombosis) Code(s): I82.409 - ACUTE EMBOLISM AND THOMBOS UNSP DEEP VN UNSP LOWER EXTREMITY Status: Acute (3) LUISA (acute kidney injury) Code(s): N17.9 - ACUTE KIDNEY FAILURE, UNSPECIFIED Status: Acute (4) Diabetes mellitus type 2 in obese Code(s): E11.69 - TYPE 2 DIABETES MELLITUS WITH OTHER SPECIFIED COMPLICATION; E66.9 - OBESITY, UNSPECIFIED Status: Acute (5) HTN (hypertension) Code(s): I10 - ESSENTIAL (PRIMARY) HYPERTENSION Status: Chronic (6) GERD (gastroesophageal reflux disease) Code(s): K21.9 - GASTRO-ESOPHAGEAL REFLUX DISEASE WITHOUT ESOPHAGITIS Status: Acute (7) HLD (hyperlipidemia) Code(s): E78.5 - HYPERLIPIDEMIA, UNSPECIFIED Status: Acute (8) History of [place] (myocardial infarction) Code(s): I25.2 - OLD MYOCARDIAL INFARCTION Status: Acute (9) History of CVA (cerebrovascular accident) Code(s): Z86.73 - PRSNL HX OF TIA (TIA), AND CEREB INFRC W/O RESID DEFICITS Status: Acute (10) Hypertension Code(s): I10 - ESSENTIAL (PRIMARY) HYPERTENSION Status: Acute (11) Macrocytic anemia Code(s): D53.9 - NUTRITIONAL ANEMIA, UNSPECIFIED Status: Acute (12) Hypotension Status: Acute (13) Diastolic dysfunction Code(s): I51.9 - HEART DISEASE, UNSPECIFIED Status: Acute - Plan Plan: - Plan Plan: 67 yo F with acute hyposix respiratory failure 2/2 PE 1. Acute hypoxic respiratory failure 2/2 PE -non hypoxic at 3L continue to wean O2 -transitioned to xarelto 15mg po BID for 21 days --> 20 daily. will need anticoag outpt for >6 mos. (insurance covers) 2. Unprovoked, recurrent DVT -RF: obesity -potential inherited coagulopathy: at3, protein s, protein c ordered -xarelto 3. Macrocytic anemia -folate & b12 WNL -rx outpt workup 4. DM, uncontrolled -started on metformin -consulted for diabetic education -will start on home long acting insulin lantus 12 units -will start on glipizide after lantus since pt. prefers oral medication -talk to CM for obtaining glucometer 5. Hypokalemia -replaced, recheck this AM -checked mg 6.Low BPs -hold lisinopril dose is SBP <100 7. h/o CVA -home meds: aspirin 8. b/l leg weakness -likely 2/2 history of lumbar spinal laminectomy and deconditioning -PT rx rehab center, consulted case mgmt for help with this, will order PT screen 9. CKD 2 -likely diabetic nephropathy -uncontrolled DM -monitor and control DM 10. Hypotension -apparently lisinopril is PRN at home -will hold lisinopril until BPs have increased 11. Diastolic dysfunction -per echo -pt. euvolemic, continue to monitor, lasix if needed 12. persistent atypical chest pain -originally thought from PE -but due to CV risk factors will order troponin and EKG dvt ppx: xarelto gi ppx: protonix discussed with Dr. Paul <Елена Atwood - Last Filed: 10/09/17 08:52> (1) Diastolic congestive heart failure Code(s): I50.30 - UNSPECIFIED DIASTOLIC (CONGESTIVE) HEART FAILURE Status: Acute (2) Diabetes mellitus type 2 in obese Code(s): E11.69 - TYPE 2 DIABETES MELLITUS WITH OTHER SPECIFIED COMPLICATION; E66.9 - OBESITY, UNSPECIFIED Status: Acute (3) LUISA (acute kidney injury) Code(s): N17.9 - ACUTE KIDNEY FAILURE, UNSPECIFIED Status: Acute (4) HTN (hypertension) Code(s): I10 - ESSENTIAL (PRIMARY) HYPERTENSION Status: Chronic (5) HLD (hyperlipidemia) Code(s): E78.5 - HYPERLIPIDEMIA, UNSPECIFIED Status: Acute (6) GERD (gastroesophageal reflux disease) Code(s): K21.9 - GASTRO-ESOPHAGEAL REFLUX DISEASE WITHOUT ESOPHAGITIS Status: Acute (7) Macrocytic anemia Code(s): D53.9 - NUTRITIONAL ANEMIA, UNSPECIFIED Status: Acute <Renuka Paul - Last Filed: 10/09/17 15:36> Attending Addendum - Attending Addendum Date/Time: 10/09/17 5032 I personally evaluated the patient and discussed the management with Dr. Atwood. I agree with the History, Examination, Assessment and Plan documented above with any addition or exceptions noted below. The patient's troponin's continue to downtrend. She is still requiring oxygen. CXR ordered and result reviewed. No consolidations. The patient's A1c was around 14 and will likely need insulin halfway. Will titrate dose as needed. Waiting on possible inpatient rehab placement. <Renuka Paul - Last Filed: 10/09/17 15:36>
[2017-10-09 06:59] LABS: Hemoglobin 8.7 g/dL (12.0-16.0); Mean Corpuscular HGB CONC 33.1 g/dL (32.0-36.0); Mean Corpuscular Hemoglobin 37.7 pg (27.0-31.0); Mean Platelet Volume 11.6 fL (7.4-10.4); Platelet Count 254 thou/uL (130-400); RBC Distribution Width 16.2 % (11.5-14.5); Red Blood Cell (RBC) Count 2.31 mill/uL (4.20-5.40); White Blood Cell (WBC) Count 5.7 thou/uL (4.8-10.8)
[2017-10-09] MEDS: glipiZIDE 10 MG TAB PO SCH ×2 (08:01→16:11)
[2017-10-09 08:26] LABS: Band 11 % (5-11); Eosinophils 1 % (0-10); Lymphocytes 54 % (21-51); MDiff Complete? YES; Macrocytosis MODERATE=16-30 cells (100X) (0-5/hpf); Monocytes 1 % (0-10); Neutrophil 24 % (42-75); PLT Morphology Comment Appears Adequate; Polychromasia SLIGHT = 2-3 cells (100X) (0-2/hpf); Reactive Lymphocytes 9 % (0-10)
[2017-10-09] MEDS ORDERED: Insulin Glargine 12 UNITS in Pre-Filled Syringe SC SCH (09:00)
[2017-10-09 09:49] LABS: Troponin I 0.039 ng/mL (< 0.028)
[2017-10-09] MEDS: Rivaroxaban 15 MG TAB PO SCH ×2 (09:57→17:28)
[2017-10-09] MEDS: Loratadine 10 MG TAB PO SCH (09:57)
[2017-10-09] MEDS: metFORMIN 500 MG TAB PO SCH ×2 (09:58→17:28)
[2017-10-09] MEDS: Magnesium Chloride 64 MG TAB PO SCH ×2 (09:58→21:03)
--- NOTE | 2017-10-09 13:41 | EKG ---
Test Reason : Blood Pressure : / mmHG Vent. Rate : 086 BPM Atrial Rate : 086 BPM P-R Int : 160 ms QRS Dur : 090 ms QT Int : 394 ms P-R-T Axes : 057 017 -35 degrees QTc Int : 471 ms Normal sinus rhythm Low voltage QRS ST-T wave sagging and inversion inferiorly may suggest ischemia. Septal infarct , age undetermined possibly. Abnormal ECG Confirmed by CAIO MCGOWAN ([id number]) on 10/09/2017 1:40:51 PM Referred By: REBECA Confirmed By:CAIO MCGOWAN
--- NOTE | 2017-10-09 14:41 | RAD ---
PORTABLE CHEST 1 VIEW: Date: 10/09/17 Time: 1313 hours HISTORY: Chest pain. FINDINGS/IMPRESSION: The heart size is prominent. Lungs are expanded without focal areas of consolidation, pneumothorax, f rank pulmonary edema, or pleural effusions. POS: [facility]
[2017-10-09] MEDS: HumaLOG 300 UNITS/3 ML VIAL SC PRN ×2 (17:22→20:56)
[2017-10-09] MEDS: Ondansetron ODT 4 MG TAB PO PRN (19:19)
[2017-10-09] MEDS: Insulin Glargine 12 UNITS in Pre-Filled Syringe SC SCH (20:55)
[2017-10-09] MEDS: Atorvastatin Calcium 40 MG TAB PO SCH (21:03)
[2017-10-10 05:30] LABS: ALT (SGPT) 12 U/L (8-55); AST (SGOT) 15 U/L (5-34); Albumin 3.4 g/dL (3.4-4.8); Alkaline Phosphatase 79 U/L (40-150); Anion Gap 11 mmol/L (10-20); BUN (Urea Nitrogen) 16 mg/dL (9.8-20.1); Bilirubin, Total 0.3 mg/dL (0.2-1.2); Calc. Creatinine Clearance 106 mL/min (70-130); Calcium 8.9 mg/dL (7.8-10.44); Carbon Dioxide 25 mmol/L (23-31); Chloride 105 mmol/L (98-107); Estimated GFR-MDRD 77; Globulin 3.2 g/dL (2.4-3.5); Glucose 143 mg/dL (80-115); Potassium 3.9 mmol/L (3.5-5.1); Protein, Total 6.6 g/dL (6.0-8.3); Sodium 137 mmol/L (136-145)
--- NOTE | 2017-10-10 06:04 | PDOC.FM ---
- Subjective Subjective: Pt reports nausea and 1 episode of vomiting overnight. Nausea resolved with Zofran. She is concerned about some blood streaked emesis and a "clot of blood" that came out her nose. She is on Xarelto for PE. She was able to ambulate to the shower yesterday and reports being able to stand up and move to chair. Barrier to ambulation is dizziness and SOB. She has peres catheter in place, would like to transitioning to commode today. - Objective MAR Reviewed: Yes Vital Signs & Weight: Vital Signs (12 hours) Temp Pulse Resp BP Pulse Ox 10/10/17 04:22 97.6 F 91 18 96/52 L 92 L 10/10/17 00:26 96.3 F L 99 20 114/59 L 95 10/09/17 20:15 96.8 F L 84 18 100/58 L 94 L Weight Weight 110.858 kg I&O: 10/08/17 10/09/17 10/10/17 06:59 06:59 06:59 Intake Total 960 960 600 Output Total 2075 1300 1450 Balance -1115 -340 -850 Result Diagrams: 10/10/17 03:59 10/10/17 03:59 Phys Exam - Physical Examination Talking in 7-10 word sentences cough with deep inspiration Cardiovascular: RRR, no significant murmur Gastrointestinal: soft, non-tender, positive bowel sounds Psychiatric: normal affect, A&O x 3 Dx/Plan (1) Pulmonary embolus Code(s): I26.99 - OTHER PULMONARY EMBOLISM WITHOUT ACUTE COR PULMONALE Status : Acute (2) DVT (deep venous thrombosis) Code(s): I82.409 - ACUTE EMBOLISM AND THOMBOS UNSP DEEP VN UNSP LOWER EXTREMITY Status: Acute (3) LUISA (acute kidney injury) Code(s): N17.9 - ACUTE KIDNEY FAILURE, UNSPECIFIED Status: Acute (4) Diabetes mellitus type 2 in obese Code(s): E11.69 - TYPE 2 DIABETES MELLITUS WITH OTHER SPECIFIED COMPLICATION; E66.9 - OBESITY, UNSPECIFIED Status: Chronic (5) History of CVA (cerebrovascular accident) Code(s): Z86.73 - PRSNL HX OF TIA (TIA), AND CEREB INFRC W/O RESID DEFICITS Status: Chronic (6) History of [place] (myocardial infarction) Code(s): I25.2 - OLD MYOCARDIAL INFARCTION Status: Chronic (7) Hypotension Status: Resolved (8) Diastolic congestive heart failure Code(s): I50.30 - UNSPECIFIED DIASTOLIC (CONGESTIVE) HEART FAILURE Status: Chronic (9) GERD (gastroesophageal reflux disease) Code(s): K21.9 - GASTRO-ESOPHAGEAL REFLUX DISEASE WITHOUT ESOPHAGITIS Status: Chronic (10) HLD (hyperlipidemia) Code(s): E78.5 - HYPERLIPIDEMIA, UNSPECIFIED Status: Chronic (11) Hypertension Code(s): I10 - ESSENTIAL (PRIMARY) HYPERTENSION Status: Chronic (12) Macrocytic anemia Code(s): D53.9 - NUTRITIONAL ANEMIA, UNSPECIFIED Status: Chronic - Plan Plan: Acute hypoxic respiratory failure 2/2 PE - Currently on 3L, continue to wean O2 - Xarelto 15mg BID - Needs anticoag outpt for >6 mo - Removing peres catheter, will be able to go to rehab if voiding Unprovoked, recurrent DVT - RF: obesity - Potential inherited coagulopathy: at3, protein s, protein c ordered - Continue Xarelto 15mg BID Macrocytic anemia - Folate & b12 nml - Likely need outpt workup DM, poorly controlled - Continue metformin, glipizide - Diabetes education - lantus 12 units - Accuchecks - CM consulted, assistance with obtaining glucometer Hypokalemia, resolved Hypertension - Hold home lisinopril dose due to hypotension Hx of CVA - Continue home ASA, Atorvastatin B/l leg weakness - likely 2/2 history of lumbar spinal laminectomy and deconditioning - PT recommends d/c to rehab unit - CM following CKD 2 - likely diabetic nephropathy 2/2 uncontrolled DM - Continue to monitor Diastolic dysfunction - Echo 10/07/17: 50-55% EF, flow reversal suggestive of diastolic dysfun. Severe Tricuspid Regurg. - Continue to monitor volume status Persistent atypical chest pain - Likely 2/2 to PE - Troponins slightly elevated but stable, trending down Dispo: Pt approved for inpt rehab at the [facility] [place] , d/c likely today if voiding after peres removed
[2017-10-10 06:41] LABS: Band 9 % (5-11); Eosinophils 1 % (0-10); Large Platelets SLIGHT; Lymphocytes 54 % (21-51); MDiff Complete? YES; Macrocytosis SLIGHT = 6-15 cells (100X) (0-5/hpf); Mean Corpuscular HGB CONC 33.9 g/dL (32.0-36.0); Mean Corpuscular Hemoglobin 38.7 pg (27.0-31.0); Mean Platelet Volume 11.1 fL (7.4-10.4); Monocytes 1 % (0-10); Neutrophil 35 % (42-75); Platelet Count 403 thou/uL (130-400); RBC Distribution Width 16.6 % (11.5-14.5); Red Blood Cell (RBC) Count 2.07 mill/uL (4.20-5.40); White Blood Cell (WBC) Count 5.1 thou/uL (4.8-10.8)
[2017-10-10] MEDS: Rivaroxaban 15 MG TAB PO SCH ×2 (09:55→18:00)
[2017-10-10] MEDS: Magnesium Chloride 64 MG TAB PO SCH ×2 (09:55→20:31)
[2017-10-10] MEDS: Loratadine 10 MG TAB PO SCH (09:56)
[2017-10-10] MEDS: metFORMIN 500 MG TAB PO SCH ×3 (09:56→18:06)
[2017-10-10] MEDS: HumaLOG 300 UNITS/3 ML VIAL SC PRN ×2 (09:58→12:54)
--- NOTE | 2017-10-10 17:08 | PDOC.EVN ---
Event Note - Event Note Event Note: Residents were paged at approximately 1645 about patient being SOB after walking 30 feet, associated with sharp substernal chest pain. Patient was assessed by resident and noted to have pulse of 100, O2 sat of 99% on 5L by NC, Respiration approx 20. She was anxious appearing, sitting up in bed, but with non labored breathing, no retraction and clear respiration. CXR, EKG, trops and ABG was ordered. At this time patient was noted to be at stable condition. Will follow up on orders.
[2017-10-10 17:16] LABS: CO2 Tension 31.1 mmHg (35.0-45.0); pH, Arterial 7.44 (7.35-7.45)
[2017-10-10 17:18] LABS: Actual Bicarbonate (HCO3a) 20.5 mEq/L (22-28); O2 Tension (PaO2) 57.8 mmHg (> 80.0)
[2017-10-10 17:19] LABS: ALV-art Gradient 101.845 (0-20); Calcium, Ionized 1.1 mmol/L (1.12-1.30); Carboxyhemoglobin (COHb) 0.1 gm% (0.0-3.0); Hemoglobin (Hb) 10.4 g/dL (12.0-16.0); Potassium - ABG Lab 3.8 mmol/L (3.70-5.30); Puncture Site RRA
--- NOTE | 2017-10-10 17:19 | RAD ---
CHEST ONE VIEW: 10/10/17 HISTORY: Chest pain. COMPARISON: 10/09/17. FINDINGS: The cardiac silhouette magnified by projection. Pulmonary vasculature is unremarkable. Mediastinum is midline. No lobar consolidation or evidence of pneumothorax. IMPRESSION: No active cardiopulmonary abnormalities are demonstrated. POS: [facility]
[2017-10-10 17:45] LABS: Troponin I 0.021 ng/mL (< 0.028)
[2017-10-10] MEDS: Insulin Glargine 12 UNITS in Pre-Filled Syringe SC SCH (20:30)
[2017-10-10] MEDS: Atorvastatin Calcium 40 MG TAB PO SCH (20:31)
[2017-10-10] MEDS: Benzonatate 100 MG CAP PO PRN (20:32)
[2017-10-10 22:01] LABS: Bilirubin Negative (Negative); Blood, Urine Negative (Negative); Clarity TURBID (Clear); Glucose, Urine (Dipstick) Negative (Negative); Leukocyte Small (Negative); Nitrite Negative (Negative); Protein, Urine (Dipstick) 30 mg/dL (Neg-Trace); Specific Gravity, Urine 1.028 (1.002-1.036); Urobilinogen 0.2 mg/dL (0.2-1.0)
[2017-10-10 22:03] LABS: Bacteria/HPF 4+ HPF (None Seen); Pathc Cast-AUWi Flag 2.08 (0-2.49)
[2017-10-10 22:11] LABS: Crystals/HPF 2+ TRIPLE PHOS HPF (Negative); Hyaline Casts/LPF 0-3 HYALINE CAST LPF (0-3 Hyaline); Yeast-All Forms None Seen HPF (None Seen)
[2017-10-10 23:20] LABS: Hemoglobin 8.2 g/dL (12.0-16.0); Platelet Count 417 thou/uL (130-400)
[2017-10-11 04:08] LABS: ALT (SGPT) 19 U/L (8-55); AST (SGOT) 23 U/L (5-34); Albumin 3.8 g/dL (3.4-4.8); Alkaline Phosphatase 87 U/L (40-150); Anion Gap 16 mmol/L (10-20); BUN (Urea Nitrogen) 16 mg/dL (9.8-20.1); Bilirubin, Total 0.3 mg/dL (0.2-1.2); Calc. Creatinine Clearance 113 mL/min (70-130); Calcium 9.5 mg/dL (7.8-10.44); Carbon Dioxide 23 mmol/L (23-31); Chloride 104 mmol/L (98-107); Estimated GFR-MDRD 81; Globulin 3.8 g/dL (2.4-3.5); Glucose 147 mg/dL (80-115); Potassium 4.9 mmol/L (3.5-5.1); Protein, Total 7.6 g/dL (6.0-8.3); Sodium 138 mmol/L (136-145)
[2017-10-11] MEDS: Benzonatate 100 MG CAP PO PRN (04:09)
[2017-10-11 04:15] LABS: Anisocytosis SLIGHT = 6-15 cells (100X) (0-5/hpf); Band 11 % (5-11); Eosinophils 4 % (0-10); Hemoglobin 8.6 g/dL (12.0-16.0); Lymphocytes 52 % (21-51); MDiff Complete? YES; Mean Corpuscular HGB CONC 33.2 g/dL (32.0-36.0); Mean Corpuscular Hemoglobin 38.5 pg (27.0-31.0); Mean Platelet Volume 10.8 fL (7.4-10.4); Monocytes 5 % (0-10); Neutrophil 28 % (42-75); PLT Morphology Comment Appears Adequate; Platelet Count 450 thou/uL (130-400); RBC Distribution Width 16.5 % (11.5-14.5); Red Blood Cell (RBC) Count 2.23 mill/uL (4.20-5.40); White Blood Cell (WBC) Count 5.9 thou/uL (4.8-10.8)
[2017-10-11 04:57] LABS: Actual Bicarbonate (HCO3a) 25.5 mEq/L (22-28); Base Excess (BEa) 1.4 mEq/L (-2.0 to +3.0); Carboxyhemoglobin (COHb) 0.9 gm% (0.0-3.0); Hemoglobin (Hb) 8.7 g/dL (12.0-16.0); O2 Tension (PaO2) 77.2 mmHg (> 80.0); pH, Arterial 7.44 (7.35-7.45)
[2017-10-11 04:58] LABS: Calcium, Ionized 1.1 mmol/L (1.12-1.30); Potassium - ABG Lab 3.5 mmol/L (3.70-5.30); Puncture Site RRAD
--- NOTE | 2017-10-11 05:31 | PDOC.FM ---
- Subjective Subjective: Yesterday evening a [employer] was called for concern of patients respiratory status. She is currently using nonrebreather and reports increased comfort of mask on her face and improvement in breathing. Reports new urine odor and dysuria. Denies hematuria or frequency. Reports transferring to commode this AM. - Objective MAR Reviewed: Yes Vital Signs & Weight: Vital Signs (12 hours) Temp Pulse Resp BP BP Pulse Ox 10/11/17 04:00 97.0 F L 84 18 113/49 L 100 10/11/17 00:17 97.2 F L 87 18 119/88 97 10/10/17 20:00 97.2 F L 87 18 10/10/17 19:22 98.4 F 98 17 106/61 90 L 10/10/17 17:36 91 24 H 105/63 94 L Weight Weight 112.899 kg I&O: 10/09/17 10/10/17 10/11/17 06:59 06:59 06:59 Intake Total 960 600 260 Output Total 1300 1900 1050 Balance -340 -1300 -790 Result Diagrams: 10/11/17 03:26 10/11/17 03:26 Phys Exam - Physical Examination Constitutional: NAD Respiratory: no wheezing expiratory stridor Cardiovascular: RRR, no significant murmur Gastrointestinal: soft, non-tender, positive bowel sounds Psychiatric: normal affect, A&O x 3 Dx/Plan (1) Pulmonary embolus Code(s): I26.99 - OTHER PULMONARY EMBOLISM WITHOUT ACUTE COR PULMONALE Status : Acute (2) DVT (deep venous thrombosis) Code(s): I82.409 - ACUTE EMBOLISM AND THOMBOS UNSP DEEP VN UNSP LOWER EXTREMITY Status: Acute (3) LUISA (acute kidney injury) Code(s): N17.9 - ACUTE KIDNEY FAILURE, UNSPECIFIED Status: Acute (4) Diabetes mellitus type 2 in obese Code(s): E11.69 - TYPE 2 DIABETES MELLITUS WITH OTHER SPECIFIED COMPLICATION; E66.9 - OBESITY, UNSPECIFIED Status: Chronic (5) History of CVA (cerebrovascular accident) Code(s): Z86.73 - PRSNL HX OF TIA (TIA), AND CEREB INFRC W/O RESID DEFICITS Status: Chronic (6) History of SD (myocardial infarction) Code(s): I25.2 - OLD MYOCARDIAL INFARCTION Status: Chronic (7) Hypotension Status: Resolved (8) Diastolic congestive heart failure Code(s): I50.30 - UNSPECIFIED DIASTOLIC (CONGESTIVE) HEART FAILURE Status: Chronic (9) GERD (gastroesophageal reflux disease) Code(s): K21.9 - GASTRO-ESOPHAGEAL REFLUX DISEASE WITHOUT ESOPHAGITIS Status: Chronic (10) HLD (hyperlipidemia) Code(s): E78.5 - HYPERLIPIDEMIA, UNSPECIFIED Status: Chronic (11) Hypertension Code(s): I10 - ESSENTIAL (PRIMARY) HYPERTENSION Status: Chronic (12) Macrocytic anemia Code(s): D53.9 - NUTRITIONAL ANEMIA, UNSPECIFIED Status: Chronic - Plan Plan: Acute hypoxic respiratory failure 2/2 PE - Currently on nonrebreather SpO2 100%, attempt to wean as tolerated - ABG improved to 7.44/31.1/38/77.2 after switched to nonrebreather - Xarelto 15mg BID - Needs anticoag outpt for >6 mo - Removing peres catheter, will be able to go to rehab if voiding - Check Antifactor Xa Unprovoked, recurrent DVT - RF:obesity - Potential inherited coagulopathy: at3, protein s, protein c ordered - Continue Xarelto 15mg BID UTI - UA 4+ bacteria - Started Bactrim - cultures pending Macrocytic anemia - Folate & b12 nml - Hgb nml past hospitalizations - Peripheral smear, retic DM, poorly controlled - Continue metformin, glipizide - Diabetes education - lantus 12 units - Accuchecks - CM consulted, assistance with obtaining glucometer Hypokalemia, resolved Hypertension - Hold home lisinopril dose due to hypotension Hx of CVA - Continue home ASA, Atorvastatin B/l leg weakness - likely 2/2 history of lumbar spinal laminectomy and deconditioning - PT recommends d/c to rehab unit - CM following CKD 2 - likely diabetic nephropathy 2/2 uncontrolled DM - Continue to monitor Diastolic dysfunction - Echo 10/07/17: 50-55% EF, flow reversal suggestive of diastolic dysfun. Severe Tricuspid Regurg. - Continue to monitor volume status Persistent atypical chest pain - Likely 2/2 to PE - Troponins slightly elevated but stable, trending down Dispo: Pt approved for inpt rehab at the [facility] [place] d/c likely today if voiding after peres removed and stable
[2017-10-11] MEDS: Loratadine 10 MG TAB PO SCH (08:46)
[2017-10-11] MEDS: Magnesium Chloride 64 MG TAB PO SCH ×2 (08:46→20:43)
[2017-10-11] MEDS: metFORMIN 500 MG TAB PO SCH ×2 (08:46→17:21)
[2017-10-11] MEDS: Rivaroxaban 15 MG TAB PO SCH ×2 (08:47→17:21)
[2017-10-11] MEDS: Sulfameth/Trimethoprim DS 800-160mg TAB PO SCH ×2 (08:47→20:42)
[2017-10-11] MEDS: Ondansetron ODT 4 MG TAB PO PRN (12:03)
[2017-10-11] MEDS: HumaLOG 300 UNITS/3 ML VIAL SC PRN (12:05)
[2017-10-11] MEDS ORDERED: predniSONE 50 MG TAB PO SCH ×2 (18:00→23:59)
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
--- NOTE | 2017-10-11 19:41 | ADD-PRG ---
DATE OF SERVICE: 10/10/2017 ADDENDUM Please see the note from Dr. Cummings for which I agree. SUBJECTIVE: The patient was seen, examined and discussed with the residents. This is a patient who is here for pulmonary embolism, it is stable. This is the second major clotting event she has had. She has had a DVT in the past. It sounds like she for Xarelto and to be sent into skilled nurs ing facility for major deconditioning for this issue. New onset diabetes with hemoglobin A1c of 14, so we have got her on insulin and we are educating her as far as that goes ) should be able to g o to rehab on current medicines and p.o. Xarelto. She has now been monitored for 4 days after the ev ent.
[2017-10-11] MEDS: Atorvastatin Calcium 40 MG TAB PO SCH (20:42)
[2017-10-11] MEDS: Insulin Glargine 12 UNITS in Pre-Filled Syringe SC SCH (20:43)
--- NOTE | 2017-10-11 23:35 | PDOC.FM ---
- Subjective Subjective: Coughed up "blood clots" overnight. Still experiences SOB with getting up and out of bed. Frontal headache, but has not tried acetominophen. - Objective Vital Signs & Weight: Vital Signs (12 hours) Temp Pulse Resp BP Pulse Ox 10/11/17 22:07 78 108/63 96 10/11/17 20:40 98.7 F 93 19 10/11/17 19:28 98.7 F 93 19 93/57 L 96 10/11/17 16:00 98.2 F 86 20 99/71 96 Weight Weight 108.363 kg I&O: 10/10/17 10/11/17 10/12/17 06:59 06:59 06:59 Intake Total 600 740 860 Output Total 1900 1050 1350 Balance -1300 -310 -490 Result Diagrams: 10/12/17 04:15 10/12/17 04:15 <Елена Atwood - Last Filed: 10/12/17 09:22> - Objective Vital Signs & Weight: Vital Signs (12 hours) Temp Pulse Resp BP BP Pulse Ox 10/12/17 11:50 98.0 F 94 17 109/70 94 L 10/12/17 07:43 97.4 F L 95 21 H 108/70 94 L 10/12/17 04:00 97.2 F L 101 H 19 133/78 92 L Weight Weight 109.543 kg I&O: 10/11/17 10/12/17 10/13/17 06:59 06:59 06:59 Intake Total 740 1480 240 Output Total 1050 2400 Balance -310 -920 240 Result Diagrams: 10/12/17 04:15 10/12/17 04:15 <Martin Gomes R - Last Filed: 10/12/17 12:16> Phys Exam - Physical Examination Constitutional: NAD HEENT: moist MMs Neck: full ROM Respiratory: no wheezing difficult to fully assess sicne pt. coughing with every inspiration Cardiovascular: RRR, no significant murmur Gastrointestinal: soft, non-tender Musculoskeletal: no edema, pulses present Neurological: non-focal, normal sensation, moves all 4 limbs Psychiatric: normal affect, A&O x 3 Skin: normal turgor <Елена Atwood - Last Filed: 10/12/17 09:22> Dx/Plan (1) Pulmonary embolus Code(s): I26.99 - OTHER PULMONARY EMBOLISM WITHOUT ACUTE COR PULMONALE Status : Acute (2) DVT (deep venous thrombosis) Code(s): I82.409 - ACUTE EMBOLISM AND THOMBOS UNSP DEEP VN UNSP LOWER EXTREMITY Status: Acute (3) LUISA (acute kidney injury) Code(s): N17.9 - ACUTE KIDNEY FAILURE, UNSPECIFIED Status: Acute (4) Diabetes mellitus type 2 in obese Code(s): E11.69 - TYPE 2 DIABETES MELLITUS WITH OTHER SPECIFIED COMPLICATION; E66.9 - OBESITY, UNSPECIFIED Status: Chronic (5) HTN (hypertension) Code(s): I10 - ESSENTIAL (PRIMARY) HYPERTENSION Status: Chronic (6) GERD (gastroesophageal reflux disease) Code(s): K21.9 - GASTRO-ESOPHAGEAL REFLUX DISEASE WITHOUT ESOPHAGITIS Status: Chronic (7) HLD (hyperlipidemia) Code(s): E78.5 - HYPERLIPIDEMIA, UNSPECIFIED Status: Chronic (8) History of HI (myocardial infarction) Code(s): I25.2 - OLD MYOCARDIAL INFARCTION Status: Chronic (9) History of CVA (cerebrovascular accident) Code(s): Z86.73 - PRSNL HX OF TIA (TIA), AND CEREB INFRC W/O RESID DEFICITS Status: Chronic (10) Hypertension Code(s): I10 - ESSENTIAL (PRIMARY) HYPERTENSION Status: Chronic (11) Macrocytic anemia Code(s): D53.9 - NUTRITIONAL ANEMIA, UNSPECIFIED Status: Chronic (12) Hypotension Status: Resolved (13) Diastolic dysfunction Code(s): I51.9 - HEART DISEASE, UNSPECIFIED Status: Acute - Plan Plan: 67 yo F with acute hypoxic respiratory failure 2/2 PE, uncontrolled DM, UTI, macrocytic anemia. Clinically unimproved from admission. 1. Acute hypoxic respiratory failure 2/2 bilateral PE -V/Q scan: large perfusion filling defects bilaterally -Currently % on non-rebreather -Continue Xarelto 15mg BID Plan: 1) CTA this AM, possible cardiac cath to assess for pulmonary hypertension 2)Consider rechecking factor Xa to ensure therapeutic dose of xarelto 2. 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 factor 8 activity: 309 -Continue xarelto 3. UTI -UA: 4+ bacteria -Continue bactrim -Cultures pending 4. Macrocytic anemia with reticulocytosis -Per clinic charts h/o of macrocytic anemia starting in Mar 2017 -B12 & folate nml -Possible causes: underlying hematologic disorder, hemolysis Plan: f/u peripheral blood smear 5. New onset of IDDM, poorly controlled -4hr accuchecks show random blood sugars >200 50% of time -On max metformin dose and Lantus 12units. Receiving approx 9 units from aggressive SS Plan: Will increase Lantus to 14 units to achieve better glycemic control, continue accuchecks q4hr 6. Diastolic dysfunction -Echo (10/11): diastolic dysfx, severe TR, EF 55-60%, severely elevated PA pressure -Pt. euvolemic clinically and based on daily weights -Will consider adding on diuretic if pt. becomes hypervolemic Plan: Daily weights, I/Os 7. CKD2 -likely 2/2 diabetic nephropathy -UA: proteinuria 8. HTN -Hold home lisinopril due to low SBPs of <100mmHg 9. Hx of CVA -Continue home ASA, statin 10. B/L leg weakness -Likely 2/2 h/o lumbar spinal laminectomy and deconditioning -Insurance approved inpt. rehab for continued PT 11. Persistent atypical chest pain -likely 2/2 PE clearance -Troponins (10/10) negative, EKG (10/08) unchanged from admission 12. HLD -Continue home statin 13. Hx of HI -aware, continue home statin DVT ppx: xarelto GI ppx: protonix <Елена Atwood - Last Filed: 10/12/17 09:22> Attending Addendum - Attending Addendum Date/Time: 10/12/17 1213 I personally evaluated the patient and discussed the management with Dr. Atwood. I agree with the History, Examination, Assessment and Plan documented above with any addition or exceptions noted below. Patient reports feeling somewhat improved today, less difficulty breathing with mild transfers. Her CTA did show the expected clot burden, but fortunately not severe enough that it is causing RV hemodynamic changes. Echo repeated yesterday does show elevated PA pressures suggested of pHTN versus pulmonary artery HTN that is likely multifactorial in nature but due to in part to chronic clot burden. Continue to wean O2 as tolerated and PT and blood thinners. She will likely require lifelong anticoagulation. Her macrocytosis is hyporegenerative in nature, but is likely not severe enough to contribute to current complaints, and will defer further workup of this to the outpatient setting. <Martin Gomes - Last Filed: 10/12/17 12:16>
[2017-10-12 05:45] LABS: ALT (SGPT) 19 U/L (8-55); AST (SGOT) 16 U/L (5-34); Albumin 3.9 g/dL (3.4-4.8); Alkaline Phosphatase 98 U/L (40-150); Anion Gap 16 mmol/L (10-20); BUN (Urea Nitrogen) 15 mg/dL (9.8-20.1); Bilirubin, Total 0.3 mg/dL (0.2-1.2); Calc. Creatinine Clearance 97 mL/min (70-130); Calcium 9.4 mg/dL (7.8-10.44); Carbon Dioxide 22 mmol/L (23-31); Chloride 102 mmol/L (98-107); Estimated GFR-MDRD 71; Globulin 3.7 g/dL (2.4-3.5); Glucose 365 mg/dL (80-115); Potassium 4.8 mmol/L (3.5-5.1); Protein, Total 7.6 g/dL (6.0-8.3); Sodium 135 mmol/L (136-145)
[2017-10-12] MEDS: HumaLOG 300 UNITS/3 ML VIAL SC PRN ×4 (05:56→21:17)
[2017-10-12 05:57] LABS: #Lymphocytes 0.8 thou/uL (1.20-3.40); #Monocytes 0.5 thou/uL (0.11-0.59); #Neutrophils 4.5 thou/uL (1.40-6.50); %Basophils 0.3 % (0.0-1.0); %Eosinophils 0.1 % (0.0-10.0); %Lymphocytes 13.5 % (21.0-51.0); %Monocytes 8.6 % (0.0-10.0); %Neutrophils 77.5 % (42.0-75.0); Anisocytosis SLIGHT = 6-15 cells (100X) (0-5/hpf); Hemoglobin 8.3 g/dL (12.0-16.0); Large Platelets SLIGHT; MDiff Complete? YES; Macrocytosis MODERATE=16-30 cells (100X) (0-5/hpf); Mean Corpuscular HGB CONC 30.2 g/dL (32.0-36.0); Mean Corpuscular Hemoglobin 35.3 pg (27.0-31.0); Mean Platelet Volume 11.4 fL (7.4-10.4); PLT Morphology Comment Appears Increased; Platelet Count 441 thou/uL (130-400); RBC Distribution Width 16.9 % (11.5-14.5); Red Blood Cell (RBC) Count 2.36 mill/uL (4.20-5.40); White Blood Cell (WBC) Count 5.8 thou/uL (4.8-10.8)
[2017-10-12] MEDS ORDERED: predniSONE 50 MG TAB PO SCH (06:00)
[2017-10-12] MEDS ORDERED: diphenhydrAMINE 50 MG CAP PO SCH (06:00)
[2017-10-12] MEDS: Magnesium Chloride 64 MG TAB PO SCH ×2 (09:11→21:16)
[2017-10-12] MEDS: Sulfameth/Trimethoprim DS 800-160mg TAB PO SCH ×2 (09:12→21:16)
[2017-10-12] MEDS: Loratadine 10 MG TAB PO SCH (09:12)
[2017-10-12] MEDS: Rivaroxaban 15 MG TAB PO SCH ×2 (09:12→16:32)
[2017-10-12] MEDS: metFORMIN 500 MG TAB PO SCH ×2 (09:12→16:32)
--- NOTE | 2017-10-12 09:19 | CT ---
PRELIMINARY REPORT/[facility]/EMERGENTY AFTER-HOURS PROCEDURE Addendum created by Antoni Bryant MD on 10/12/2017 7:53 AM Central Time ([place] & [place]) THIS REPORT CONT AINS FINDINGS THAT MAY BE CRITICAL TO PATIENT CARE. The findings were verbally communicated via telep jose a conference with Dr. Dotson at 7:53 AM CDT on 10/12/2017. The findings were acknowledged and under stood. Initial Report created on 10/12/2017 7:12 AM Central Time ([place] & [place]) CT Angiography Chest With Intravenous Contrast EXAM DATE/TIME: 10/12/2017 6:46 AM CLINICAL HISTORY: 67 years female; Signs and symptoms; Cough and dyspnea; Prior surgery; Surgery date: 6+ months; Surge ry type: Bilateral shoulder; Patient HX: Coughing and SOB. Pt has HX of pe; Additional info: Pt was p re-medicated for iodine allergy. TECHNIQUE: Axial computed tomographic angiography images of the chest with intravenous contrast using pulmonary embolism protocol. MIP reconstructed images were created and reviewed. CONTRAST: 88 mL of ISOVUE administered intravenously. COMPARISON: NM - Lung V/Q Scan 2017-10-06 03:44 FINDINGS: Artifacts: Breath motion artifact. Pulmonary arteries: Multiple bilateral proximal pulmonary emboli including all lung lobes bilaterally . No central or saddle embolism. Enlarged main pulmonary artery measuring 3.9 cm in diameter. Aorta: No acute findings. No thoracic aortic aneurysm. Lungs: 9 mm right middle lobe pulmonary nodule. Multiple subcentimeter right lower lobe pulmonary nod ules. Small scattered scarring or subsegmental atelectasis bilaterally. Pleural space: Unremarkable. No significant effusion. No pneumothorax. Heart: Small pericardial effusion. Cardiomegaly. No evidence of RV dysfunction. Bones/joints: Degenerative changes. Bilateral shoulder prosthesis in place. No acute fracture. No dis location. Soft tissues: Unremarkable. Lymph nodes: Unremarkable. No enlarged lymph nodes. Liver: Hepatic cyst. IMPRESSION: Multiple bilateral proximal pulmonary emboli including all lung lobes bilaterally. No central or sadd le embolism. Enlarged main pulmonary artery measuring 3.9 cm in diameter. This is nonspecific but can represent se quelae of chronic pulmonary to hypertension. Small pericardial effusion. Cardiomegaly. 9 mm right middle lobe pulmonary nodule. Multiple subcentimeter right lower lobe pulmonary nodules. T hese are indeterminate and will require followup for evaluation of stability. Thank you for allowing us to participate in the care of your patient. Dictated and Authenticated by: Antoni Bryant MD 10/12/2017 7:12 AM Central Time ([place] & [place]) FINAL REPORT CT ANGIOGRAM CHEST WITH 3D RENDERING: EMERGENCY AFTER HOURS EXAM TIME: 649 a.m. DATE: 10/12/17. This is the final report. Multiple bilateral pulmonary emboli bilaterally without evidence of significant central or saddle pul monary embolus. Enlarged main pulmonary artery up to 3.9 cm. Small pericardial effusion. Cardiomeg kristopher. 0.9 cm diameter right middle lobe pulmonary nodule with multiple right lower lobe subcentimeter nodules. Depending upon patient's risk factors, consider 3-6 month followup noncontrast chest CT sc ans for followup nodule evaluation. POS: MARIUSZ
--- NOTE | 2017-10-12 12:03 | PRG ---
DATE OF SERVICE: 10/12/2017 SERVICE: Pulmonary Medicine. INTERVAL HISTORY: The patient is doing fine from a respiratory standpoint. She is breathing more co mfortably. Today, she was able to get out of bed and transition to the bedside commode with some ass istance, but did not have horrendous breathing difficulties, or syncope. She went down for multiple studies yesterday, both of which were actually reassuring. Otherwise, there has been no interval jackie nge to her condition. PHYSICAL EXAMINATION: VITAL SIGNS: Afebrile, pulse 95, blood pressure 108/70, respirations 21, saturation 94% on 5 liters nasal cannula. GENERAL: The patient is awake and alert, in no apparent distress. LUNGS: Decent air entry. There is no prolonged expiratory phase. Some dependent crackles are minim al. No rhonchi are appreciated. HEART: Normal rate, regular. ABDOMEN: Soft, nontender, nondistended. Bowel sounds are positive. MUSCULOSKELETAL: No cyanosis or clubbing. No pitting in the bilateral lower extremities. NEUROLOGIC: Grossly nonfocal. LABORATORY DATA: WBC 5.8, hemoglobin 8.3, platelets 441,000. PH 7.44, pCO2 38, pO2 77. Basic metab olic profile, liver function studies are essentially unremarkable otherwise. Blood sugars ranged fro m 189-330. Urinalysis is essentially unremarkable. Culture is positive for presumptive Proteus. IMAGIN. CTA of the chest demonstrates multiple pulmonary emboli bilaterally. There is no reflux of contr ast into the inferior vena cava. The right ventricle and right atrium are little generous in size. The left ventricle looks essentially normal. She has a minimally dilated pulmonary artery. I do not see rapid tapering of the pulmonary vasculature, suggestive of chronic thromboembolic disease. 2. Echocardiogram did not generate a TAPSE. That being said, the estimated right ventricular pressu re is actually slightly improved. ASSESSMENT: 1. Acute hypoxic respiratory failure. 2. Pulmonary embolism, acute. 3. Pulmonary hypertension, likely multifactorial. 4. Type 2 diabetes mellitus. DISCUSSION AND PLAN: We will wean away the oxygen as tolerated. At this point, the patient has not had any repeat syncopal events. It does not appear as though there is significant stress on the righ t ventricle any more. The CTA of the chest did not demonstrate any reflux of contrast in the inferio r vena cava. Troponin has trended down into the normal range. I talked about possibly doing TPA to expedite her recovery. After talking about the risks and benefits of this however, she is going to d ecline any type of therapy with that because of her previous stroke. She understands that because of her previous stroke, she will be at increased risk of having some sort of an intracranial bleed which could be potentially catastrophic. As such, she does not want to entertain that possibility. There fore, I think we can transition her back to the telemetry unit. I will see her in the outpatient set ting to set up a sleep study, and continue our investigation into pulmonary hypertension if repeat ec hocardiogram in 3-6 months still demonstrates elevated pressures.
--- NOTE | 2017-10-12 12:43 | EKG ---
Test Reason : Blood Pressure : / mmHG Vent. Rate : 096 BPM Atrial Rate : 096 BPM P-R Int : 140 ms QRS Dur : 088 ms QT Int : 342 ms P-R-T Axes : 044 002 001 degrees QTc Int : 432 ms Normal sinus rhythm Nonspecific T wave abnormality Abnormal ECG When compared with ECG of 09-OCT-2017 10:24, No significant change was found Confirmed by CAIO MCGOWAN ([id number]) on 10/12/2017 12:42:50 PM Referred By: MARY wiggins Confirmed By:CAIO MCGOWAN
--- NOTE | 2017-10-12 12:54 | ADD-PRG ---
ADDENDUM DATE OF SERVICE: 10/11/2017 Please see the note from Dr. Cummings for which I agree. The patient was seen and evaluated, examined with the resident by the bedside. Yesterday, ended up having increasing shortness of breath and desaturations and so was moved to the ntermediate ICU setting for this issue and on ventimask, she is now at 100%. Does not feel as short of breath. Following got her urinary catheter out and has 4+ white blood cells. This certainly seem s like she has got a UTI. Has anemia, but it sounds like according to the patient, she has had this chronically her whole life. Iron levels were normal and were getting some other levels for B12, etc. OBJECTIVE: CHEST: Sounds clear. CARDIOVASCULAR: Regular rate and rhythm. ABDOMEN: Benign. EXTREMITIES: Show no edema. PLAN: Hopefully, going to decrease the oxygen. We will get physical therapy to walk her and see how strong she is. There was some talk about potentially sending her to rehab, but if she is strong jason ug on her own, we could probably send her out with home oxygen. We will continue the Xarelto that s he is on in the meantime. Try to get old records as far as the anemia goes, I wonder if this is pote ntially a thalassemia type issue.
--- NOTE | 2017-10-12 14:37 | PQF ---
CLINICAL DOCUMENTATION IMPROVEMENT CLARIFICATION FORM: ICD-10 Updated PLEASE DO AN ADDENDUM TO THE PROGRESS NOTE WITH ANY DOCUMENTATION UPDATES OR ADDITIONS AND CARRY THROUGH TO DC SUMMARY. THANK YOU. DATE: 10/12/17 ATTN: Dr. Atwood/ Attending Dr. Gomes Please exercise your independent, professional judgment in responding to the clarification form. Clinical indicators are provided on the bottom of this form for your review Please check appropriate box(s): [ ] UTI please specify if due to or related to (as applicable): [ X ] Indwelling catheter [ ] Unable to determine etiology UTI Site: [ ] Kidney [ ] Ureter [ ] Bladder [ ] Urethra [X ] Unable to determine Specify Organism (if known):PROTEUS [ ] Unknown organism [ ] Other diagnosis [ ] Unable to determine In addition, please specify: Present on Admission (POA): [ ] Yes [ X] No [ ] Unable to determine For continuity of documentation, please document condition throughout progress notes and discharge summary. Thank You. The following CLINICAL INDICATORS - SIGNS / SYMPTOMS are present in the medical record: PN 10/12: UTI UA: 4+ BACTERIA RISKS: H&P 08/06: ACUTE DIASTOLIC CHF. DM 2 IN OBESE. LUISA PHYSICIAN ORDER 10/06: PLACE TIERNEY CATHETER TREATMENT: ORDER 10/11: DISCONTINUE TIERNEY, NOW. CPOE 10/11: URINE CULTURE. CPOE 10/10: BACTRIM DS 1 TAB PO BID Thank you, Kimberlee (This form is maintained as a part of the permanent medical record) 2014 [employer] All Rights Reserved Kimberlee Ni RN, BSN [email or web address] Office: [phone] [facility] CENTERJimmy
[2017-10-12] MEDS ORDERED: Lisinopril/Hydrochlorothiazide 20/25 mg Tablet PO SCH (15:00)
[2017-10-12] MEDS ORDERED: Lisinopril/Hydrochlorothiazide 10 mg/12.5 mg Tablet PO SCH (16:30)
[2017-10-12] MEDS: Insulin Glargine 14 UNITS in Pre-Filled Syringe 1 EACH SC SCH (21:15)
[2017-10-12] MEDS: Atorvastatin Calcium 40 MG TAB PO SCH (21:16)
[2017-10-13 00:05] LABS: Hemoglobin 8.4 g/dL (12.0-16.0); Platelet Count 495 thou/uL (130-400)
[2017-10-13] MEDS: Acetaminophen 325 MG TAB PO PRN (03:09)
--- NOTE | 2017-10-13 06:25 | PDOC.FM ---
- Subjective Subjective: Pt. reports coughing up small blood clots. Was moved from CCU to floor yesterday. She is now able to move from bedside to commode without supplmenet of non-rebreather mask, however is limited by movement to commode. Still complains of chest uncomfortablity, unchanged throughout admission. dyspnea only with exertion. - Objective MAR Reviewed: Yes Vital Signs & Weight: Vital Signs (12 hours) Temp Pulse Resp BP BP Pulse Ox 10/13/17 05:48 98.1 F 61 16 87/51 L 95 10/12/17 20:03 98.0 F 97 16 93 L 10/12/17 19:56 98.0 F 97 16 116/64 93 L 10/12/17 19:33 98.4 F 99 19 116/71 99 Weight Weight 109.543 kg I&O: 10/11/17 10/12/17 10/13/17 06:59 06:59 06:59 Intake Total 740 1480 1520 Output Total 1050 2400 500 Balance -310 -920 1020 Result Diagrams: 10/13/17 06:43 10/13/17 06:43 <Елена Atwood - Last Filed: 10/13/17 08:33> - Objective Vital Signs & Weight: Vital Signs (12 hours) Temp Pulse Pulse Pulse Resp BP BP 10/13/17 09:20 113 H 110 H 141/65 H 132/65 10/13/17 07:50 97.4 F L 89 18 10/13/17 05:48 98.1 F 61 16 BP Pulse Ox Pulse Ox Pulse Ox 10/13/17 09:20 96 100 10/13/17 07:50 116/59 L 96 10/13/17 05:48 87/51 L 95 Weight Weight 109.543 kg I&O: 10/12/17 10/13/17 10/14/17 06:59 06:59 06:59 Intake Total 1480 1520 240 Output Total 2400 500 Balance -920 1020 240 Result Diagrams: 10/13/17 06:43 10/13/17 06:43 <Martin Gomes - Last Filed: 10/13/17 12:02> Phys Exam - Physical Examination Constitutional: NAD HEENT: moist MMs Neck: supple, full ROM Respiratory: no wheezing, no rales Cardiovascular: RRR, no significant murmur Gastrointestinal: soft, non-tender Musculoskeletal: pulses present b/l trace edema Neurological: normal sensation, moves all 4 limbs Psychiatric: normal affect, A&O x 3 Skin: no rash, normal turgor <Atwood,Елена - Last Filed: 10/13/17 08:33> Dx/Plan (1) Pulmonary embolus Code(s): I26.99 - OTHER PULMONARY EMBOLISM WITHOUT ACUTE COR PULMONALE Status : Acute (2) DVT (deep venous thrombosis) Code(s): I82.409 - ACUTE EMBOLISM AND THOMBOS UNSP DEEP VN UNSP LOWER EXTREMITY Status: Acute (3) LUISA (acute kidney injury) Code(s): N17.9 - ACUTE KIDNEY FAILURE, UNSPECIFIED Status: Acute (4) Diabetes mellitus type 2 in obese Code(s): E11.69 - TYPE 2 DIABETES MELLITUS WITH OTHER SPECIFIED COMPLICATION; E66.9 - OBESITY, UNSPECIFIED Status: Chronic (5) HTN (hypertension) Code(s): I10 - ESSENTIAL (PRIMARY) HYPERTENSION Status: Chronic (6) GERD (gastroesophageal reflux disease) Code(s): K21.9 - GASTRO-ESOPHAGEAL REFLUX DISEASE WITHOUT ESOPHAGITIS Status: Chronic (7) HLD (hyperlipidemia) Code(s): E78.5 - HYPERLIPIDEMIA, UNSPECIFIED Status: Chronic (8) History of [place] (myocardial infarction) Code(s): I25.2 - OLD MYOCARDIAL INFARCTION Status: Chronic (9) History of CVA (cerebrovascular accident) Code(s): Z86.73 - PRSNL HX OF TIA (TIA), AND CEREB INFRC W/O RESID DEFICITS Status: Chronic (10) Hypertension Code(s): I10 - ESSENTIAL (PRIMARY) HYPERTENSION Status: Chronic (11) Macrocytic anemia Code(s): D53.9 - NUTRITIONAL ANEMIA, UNSPECIFIED Status: Chronic (12) Hypotension Status: Resolved (13) Diastolic dysfunction Code(s): I51.9 - HEART DISEASE, UNSPECIFIED Status: Acute - Plan Plan: 67 yo F with acute hypoxic respiratory failure 2/2 PE, uncontrolled DM, UTI, macrocytic anemia. Clinically unimproved from admission. 1. Acute hypoxic respiratory failure 2/2 bilateral PE -V/Q scan: large perfusion filling defects bilaterally -CTA: multiple, proximal b/l pulmonary emboli -etiology: chronic thromboembolic disease, increased F8 activity -Currently 95 % on 5L NC -Continue Xarelto 15mg BID, continue PT Plan: continue to monitor, continue PT, plan for transfer to inpt rehab if patient is clinically improved 2. 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 factor 8 activity: 309 -Continue xarelto 3. Catheter associated UTI, presumptive proteus -Continue bactrim, covers proteus Plan: cultures pending will f/u and adjust abx as needed 4. Macrocytic anemia with inadequate reticulocyte response -Per clinic charts h/o of macrocytic anemia starting in Mar 2017 -B12 & folate nml -PBS: macrocytosis, thrombocytosis -Possible causes: underlying myelodysplastic syndrome, liver dz, inflamm disorders Plan: non-contributory at this time, can further workup in outpatient setting 5. New onset of IDDM, poorly controlled -Yesterday 6 units of SS insulin in evening after inc. Lantus to 14units yesterday AM -POC this am 109 -On max metofrmin dose Plan: monitor with accuchecks today, if glucose is >180 will consider inc. Lantus to 15-16 units 6. Diastolic dysfunction -Echo (10/11): diastolic dysfx, severe TR, EF 55-60%, severely elevated PA pressure -Pt. euvolemic clinically and based on daily weights -Pt. currently home lisinopril/hctz held due to low SBPs <100 Plan: Daily weights, I/Os 7. CKD2 -likely 2/2 diabetic nephropathy -UA: proteinuria 8. HTN -Lisinopril/HCTZ 10-12.5 yesterday x1 for reported congestion -Hold home lisinopril due to low SBPs of <100mmHg, give PRN 9. Hx of CVA -Continue home ASA, statin 10. B/L leg weakness -Likely 2/2 h/o lumbar spinal laminectomy and deconditioning -Insurance approved inpt. rehab for continued PT 11. Persistent atypical chest pain -likely 2/2 PE clearance -Troponins (10/10) negative, EKG (10/08) unchanged from admission 12. HLD -Continue home statin 13. Hx of [place] -aware, continue home statin DVT ppx: xarelto GI ppx: protonix Dispo: Pt. is tolerating movement from bedside to commode much better, not requiring venturi NRB mask. Continue PT. Continue to closely monitor respiratory status. If pt. clinically improve with movement tolerance today or tomorrow can consider transfer to pre-approved inpatient rehab. Discussed with Dr. Gomes <Елена Atwood - Last Filed: 10/13/17 08:33> Attending Addendum - Attending Addendum Date/Time: 10/13/17 1200 I personally evaluated the patient and discussed the management with Dr. Atwood. I agree with the History, Examination, Assessment and Plan documented above with any addition or exceptions noted below. Patient doing somewhat improved today. She has been able to ambulate around her room with shortness of breath but not as bad. Continues on 5L of O2. Continue anticoagulation for PE. Her UCx is growing Proteus, will swap to Gentamicin x1 and await sensitivities for futher abx management. She is still approved for rehab and I hope that she will be stable for transfer there in the next few days. <Martin Gomes - Last Filed: 10/13/17 12:02>
[2017-10-13 06:52] LABS: Mean Corpuscular HGB CONC 31.1 g/dL (32.0-36.0); Mean Corpuscular Hemoglobin 35.9 pg (27.0-31.0); Platelet Count 419 thou/uL (130-400); RBC Distribution Width 17.5 % (11.5-14.5); Red Blood Cell (RBC) Count 2.22 mill/uL (4.20-5.40); White Blood Cell (WBC) Count 6.8 thou/uL (4.8-10.8)
[2017-10-13 07:11] LABS: ALT (SGPT) 16 U/L (8-55); AST (SGOT) 15 U/L (5-34); Albumin 3.6 g/dL (3.4-4.8); Alkaline Phosphatase 74 U/L (40-150); Anion Gap 13 mmol/L (10-20); BUN (Urea Nitrogen) 18 mg/dL (9.8-20.1); Bilirubin, Total 0.4 mg/dL (0.2-1.2); Calc. Creatinine Clearance 102 mL/min (70-130); Calcium 9.5 mg/dL (7.8-10.44); Carbon Dioxide 22 mmol/L (23-31); Chloride 107 mmol/L (98-107); Estimated GFR-MDRD 75; Globulin 3.4 g/dL (2.4-3.5); Glucose 93 mg/dL (80-115); Potassium 3.9 mmol/L (3.5-5.1); Sodium 138 mmol/L (136-145)
[2017-10-13 08:30] LABS: Band 9 % (5-11); Eosinophils 1 % (0-10); Hypochromia SLIGHT = 6-15 cells (100X) (0-5/hpf); Lymphocytes 41 % (21-51); MDiff Complete? YES; Macrocytosis MODERATE=16-30 cells (100X) (0-5/hpf); Monocytes 2 % (0-10); Neutrophil 47 % (42-75); Ovalocytes SLIGHT = 2-5 cells (100X) (0-1/hpf); PLT Morphology Comment Appears Increased; Polychromasia SLIGHT = 2-3 cells (100X) (0-2/hpf)
[2017-10-13] MEDS: Rivaroxaban 15 MG TAB PO SCH ×2 (08:42→17:38)
[2017-10-13] MEDS: Sulfameth/Trimethoprim DS 800-160mg TAB PO SCH (08:42)
[2017-10-13] MEDS: Magnesium Chloride 64 MG TAB PO SCH ×2 (08:42→21:04)
[2017-10-13] MEDS: metFORMIN 500 MG TAB PO SCH ×2 (08:42→17:37)
[2017-10-13] MEDS: Loratadine 10 MG TAB PO SCH (08:42)
[2017-10-13] MEDS ORDERED: Lisinopril/Hydrochlorothiazide 10 mg/12.5 mg Tablet PO SCH (09:00)
[2017-10-13] MEDS ORDERED: Gentamicin 80 MG/2 ML VIAL IM SCH (10:45)
[2017-10-13] MEDS: HumaLOG 300 UNITS/3 ML VIAL SC PRN (12:50)
--- NOTE | 2017-10-13 20:32 | PRG ---
DATE OF SERVICE: 10/13/2017 SERVICE: Pulmonary Medicine. INTERVAL HISTORY: The patient is doing well from a respiratory standpoint. She does not have any ch est pain, nausea, vomiting, fevers or chills. Otherwise, there has been no interval change to her co ndition. She is on blood thinners. She did not have any more syncopal episodes. PHYSICAL EXAMINATION: VITAL SIGNS: Afebrile, pulse 99, blood pressure 106/58, respirations 20, saturation 95% on 5 liters nasal cannula. GENERAL: The patient is awake, alert, no apparent distress. LUNGS: Excellent air entry. I do not appreciate prolonged expiratory phase or wheezing. HEART: Normal rate, regular. ABDOMEN: Soft, nontender, nondistended. Bowel sounds are positive. MUSCULOSKELETAL: No cyanosis or clubbing. No pitting in the bilateral lower extremities. NEUROLOGIC: Grossly nonfocal. LABORATORY DATA: Hemoglobin 8.0 and roughly stable, platelets 419,000 and down trending. Band count is 9% on top of 47% neutrophils with a normal lymphocyte count. Basic metabolic profile and liver f unction studies are essentially unremarkable at this time. Creatinine is 0.9. ASSESSMENT: 1. Acute hypoxic respiratory failure, improving. 2. Pulmonary embolism, acute. 3. Pulmonary hypertension, likely multifactorial. 4. Type 2 diabetes mellitus. DISCUSSION AND PLAN: At this point, she has no further requirements for inpatient Pulmonary or Criti alirio Care opinion. On discharge from the hospital, she will require anticoagulation. This needs to b e continued for a full 9 months. In the outpatient setting, we will reevaluate her heart with an ech ocardiogram to determine whether or not she has persistence pulmonary hypertension after she has been adequately anticoagulated for a protracted course. I will work up for sleep apnea in the outpatient setting. Please call with additional questions or concerns moving forward, as I will be signing off at this time.
[2017-10-13] MEDS: Atorvastatin Calcium 40 MG TAB PO SCH (21:04)
[2017-10-13] MEDS: Insulin Glargine 14 UNITS in Pre-Filled Syringe 1 EACH SC SCH (21:05)
[2017-10-14 05:25] LABS: ALT (SGPT) 14 U/L (8-55); AST (SGOT) 13 U/L (5-34); Albumin 3.6 g/dL (3.4-4.8); Alkaline Phosphatase 81 U/L (40-150); Anion Gap 13 mmol/L (10-20); BUN (Urea Nitrogen) 17 mg/dL (9.8-20.1); Bilirubin, Total 0.2 mg/dL (0.2-1.2); Calc. Creatinine Clearance 97 mL/min (70-130); Calcium 9.2 mg/dL (7.8-10.44); Carbon Dioxide 22 mmol/L (23-31); Chloride 106 mmol/L (98-107); Estimated GFR-MDRD 71; Globulin 3.3 g/dL (2.4-3.5); Glucose 123 mg/dL (80-115); Protein, Total 6.9 g/dL (6.0-8.3); Sodium 137 mmol/L (136-145)
--- NOTE | 2017-10-14 05:59 | PDOC.FM ---
- Subjective Subjective: No acute events overnight. Pt still continuing to cough up small blood clots. Yesterday was able to ambulate to bathroom and to other side of room with assistance and on nasal cannula. Reports continued chest pressure that has been unchanged this admission. - Objective MAR Reviewed: Yes Vital Signs & Weight: Vital Signs (12 hours) Temp Pulse Resp BP BP Pulse Ox 10/14/17 04:07 98.4 F 89 16 100/55 L 94 L 10/13/17 20:14 97.9 F 95 18 94 L 10/13/17 19:53 97.9 F 95 18 105/57 L 94 L Weight Weight 109.543 kg I&O: 10/12/17 10/13/17 10/14/17 06:59 06:59 06:59 Intake Total 1480 1520 1480 Output Total 2400 500 875 Balance -920 1020 605 Result Diagrams: 10/14/17 04:22 10/14/17 04:22 <Елена Atwood - Last Filed: 10/14/17 06:57> - Objective Vital Signs & Weight: Vital Signs (12 hours) Temp Pulse Resp BP Pulse Ox 10/14/17 07:10 97.9 F 93 18 102/56 L 95 10/14/17 04:07 98.4 F 89 16 100/55 L 94 L Weight Weight 111.175 kg I&O: 10/13/17 10/14/17 10/15/17 06:59 06:59 06:59 Intake Total 1520 1960 Output Total 500 875 Balance 1020 1085 Result Diagrams: 10/14/17 04:22 10/14/17 04:22 <Martin Gomes - Last Filed: 10/14/17 11:59> Phys Exam - Physical Examination Constitutional: NAD HEENT: moist MMs Neck: full ROM Respiratory: no wheezing, no rales Cardiovascular: no significant murmur, no rub, gallop Gastrointestinal: non-tender trace edema b/l, no tenderness to plapation Neurological: non-focal, moves all 4 limbs Psychiatric: normal affect, A&O x 3 Skin: no rash, normal turgor <Елена Atwood - Last Filed: 10/14/17 06:57> Dx/Plan (1) Pulmonary embolus Code(s): I26.99 - OTHER PULMONARY EMBOLISM WITHOUT ACUTE COR PULMONALE Status : Acute (2) DVT (deep venous thrombosis) Code(s): I82.409 - ACUTE EMBOLISM AND THOMBOS UNSP DEEP VN UNSP LOWER EXTREMITY Status: Acute (3) LUISA (acute kidney injury) Code(s): N17.9 - ACUTE KIDNEY FAILURE, UNSPECIFIED Status: Acute (4) Diabetes mellitus type 2 in obese Code(s): E11.69 - TYPE 2 DIABETES MELLITUS WITH OTHER SPECIFIED COMPLICATION; E66.9 - OBESITY, UNSPECIFIED Status: Chronic (5) HTN (hypertension) Code(s): I10 - ESSENTIAL (PRIMARY) HYPERTENSION Status: Chronic (6) GERD (gastroesophageal reflux disease) Code(s): K21.9 - GASTRO-ESOPHAGEAL REFLUX DISEASE WITHOUT ESOPHAGITIS Status: Chronic (7) HLD (hyperlipidemia) Code(s): E78.5 - HYPERLIPIDEMIA, UNSPECIFIED Status: Chronic (8) History of [place] (myocardial infarction) Code(s): I25.2 - OLD MYOCARDIAL INFARCTION Status: Chronic (9) History of CVA (cerebrovascular accident) Code(s): Z86.73 - PRSNL HX OF TIA (TIA), AND CEREB INFRC W/O RESID DEFICITS Status: Chronic (10) Hypertension Code(s): I10 - ESSENTIAL (PRIMARY) HYPERTENSION Status: Chronic (11) Macrocytic anemia Code(s): D53.9 - NUTRITIONAL ANEMIA, UNSPECIFIED Status: Chronic (12) Hypotension Status: Resolved (13) Diastolic dysfunction Code(s): I51.9 - HEART DISEASE, UNSPECIFIED Status: Acute - Plan Plan: 67 yo F with acute hypoxic respiratory failure 2/2 PE, uncontrolled DM, UTI, macrocytic anemia. Clinically unimproved from admission. 1. Acute hypoxic respiratory failure 2/2 bilateral PE -V/Q scan: large perfusion filling defects bilaterally -CTA: multiple, proximal b/l pulmonary emboli -etiology: chronic thromboembolic disease, increased F8 activity -Currently 95 % on 5L NC -Continue Xarelto 15mg BID, continue PT Plan: Pulmonary/Dr. Rausch signed off 2. 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 factor 8 activity: 309 -Continue xarelto 3. Catheter associated UTI, presumptive proteus -s/p Gentamicin x1 yeterday -pt asymptomatic -pending S/S 4. Macrocytic anemia with inadequate reticulocyte response -Per clinic charts h/o of macrocytic anemia starting in Mar 2017 -B12 & folate nml -PBS: macrocytosis, thrombocytosis -Possible causes: underlying myelodysplastic syndrome, liver dz, inflamm disorders Plan: non-contributory at this time, can further workup in outpatient setting 5. New onset of IDDM, well controlled -Well controlled on 14 units of Lantus and max metformin. POCs overnight have been 111-218 -continue to monitor with accuchecks, Agressive SS PRN 6. Diastolic dysfunction -Echo (10/11): diastolic dysfx, severe TR, EF 55-60%, severely elevated PA pressure -Pt. euvolemic clinically and based on daily weights -Pt. currently home lisinopril/hctz held due to low SBPs <100 Plan: Daily weights, I/Os 7. CKD2 -likely 2/2 diabetic nephropathy -UA: proteinuria 8. HTN -Lisinopril/HCTZ 10-12.5 yesterday x1 for reported congestion -Hold home lisinopril due to low SBPs of <100mmHg, give PRN 9. Hx of CVA -Continue home ASA, statin 10. B/L leg weakness -Likely 2/2 h/o lumbar spinal laminectomy and deconditioning -Insurance approved inpt. rehab for continued PT 11. Persistent atypical chest pain -likely 2/2 PE clearance -Troponins (10/10) negative, EKG (10/08) unchanged from admission 12. HLD -Continue home statin 13. Hx of [place] -aware, continue home statin DVT ppx: xarelto GI ppx: protonix Dispo: Pt. is tolerating movement from bedside to commode much better, not requiring venturi NRB mask. Continue PT. Continue to closely monitor respiratory status. Pulmonary has signed off with plans to f/u outpt for sleep apnea. Dr. Rausch recommended outpt echo to assess for changes in pulmonary hypertension once has been on anticoagulation for more time. Continue PT for improved respiratory endurance. Once pt is able to at least tolerate walking around room without desaturation episodes, can consider inpt rehab transfer. Discussed with Dr. Gomes <Елена Atwood - Last Filed: 10/14/17 06:57> Attending Addendum - Attending Addendum Date/Time: 10/14/17 1158 I personally evaluated the patient and discussed the management with Dr. Atwood. I agree with the History, Examination, Assessment and Plan documented above with any addition or exceptions noted below. Patient continues to be stable from respiratory standpoint and Pulm has signed off the case. Continue anticoagulation. She is otherwise doing well. Reports some weakness today. If she looks well this afternoon, will work to transfer over to inpatient rehab. Anticipate discharge either today or tomorrow. She will complete therapy for UTI with Bactrim. <Martin Gomes - Last Filed: 10/14/17 11:59>
[2017-10-14 06:00] LABS: Anisocytosis SLIGHT = 6-15 cells (100X) (0-5/hpf); Band 8 % (5-11); Eosinophils 1 % (0-10); Hemoglobin 7.9 g/dL (12.0-16.0); Large Platelets SLIGHT; Lymphocytes 62 % (21-51); MDiff Complete? YES; Macrocytosis SLIGHT = 6-15 cells (100X) (0-5/hpf); Mean Corpuscular HGB CONC 32.8 g/dL (32.0-36.0); Mean Corpuscular Hemoglobin 36.4 pg (27.0-31.0); Mean Platelet Volume 10.8 fL (7.4-10.4); Monocytes 4 % (0-10); Neutrophil 25 % (42-75); PLT Morphology Comment Appears Increased; Platelet Count 448 thou/uL (130-400); RBC Distribution Width 25.2 % (11.5-14.5); Red Blood Cell (RBC) Count 2.18 mill/uL (4.20-5.40)
[2017-10-14] MEDS ORDERED: Sodium Chloride 0.9% 10 ML ONE (08:33)
[2017-10-14] MEDS: metFORMIN 500 MG TAB PO SCH ×2 (08:40→17:29)
[2017-10-14] MEDS: Rivaroxaban 15 MG TAB PO SCH ×2 (08:40→17:29)
[2017-10-14] MEDS: Magnesium Chloride 64 MG TAB PO SCH ×2 (08:41→21:37)
[2017-10-14] MEDS: Loratadine 10 MG TAB PO SCH (08:41)
[2017-10-14 11:19] LABS: Activated Protein C Resistance 2.6 ratio (.)
[2017-10-14] MEDS: HumaLOG 300 UNITS/3 ML VIAL SC PRN ×2 (14:23→17:31)
[2017-10-14 14:54] LABS: Cardiolipin IgA Ab 2.4 APL-U/mL (<14 Negative); Cardiolipin IgG Ab 1.4 GPL-U/mL (<10 Negative); Cardiolipin IgM Ab 1.9 MPL-U/mL (<10 Negative); EliA APS New Method **** NEW METHOD ****
[2017-10-14] MEDS: Insulin Glargine 14 UNITS in Pre-Filled Syringe 1 EACH SC SCH (21:37)
[2017-10-14] MEDS: Atorvastatin Calcium 40 MG TAB PO SCH (21:37)
[2017-10-14 23:40] LABS: Hemoglobin 8.4 g/dL (12.0-16.0); Platelet Count 478 thou/uL (130-400)
--- NOTE | 2017-10-15 05:38 | PDOC.FM ---
- Subjective Subjective: Patient was unable to be transferred to inpatient rehab yesterday evening due to it being too late and that case management needs to first speak with her. Medically, she had no acute events overnight. Reports dyspnea on exertion, but able to ambulate with assist on 5L of NC.She is still intermittently expectorating small blood clots and c/o "heavy legs." - Objective MAR Reviewed: Yes Vital Signs & Weight: Vital Signs (12 hours) Temp Pulse Resp BP Pulse Ox 10/15/17 04:18 98.5 F 84 17 107/60 95 10/14/17 20:08 98.4 F 83 16 96 10/14/17 19:53 98.4 F 83 16 98/60 96 Weight Weight 111.175 kg I&O: 10/13/17 10/14/17 10/15/17 06:59 06:59 06:59 Intake Total 1520 1960 740 Output Total 500 875 Balance 1020 1085 740 Result Diagrams: 10/15/17 05:11 10/15/17 05:11 <Елена Atwood - Last Filed: 10/15/17 08:30> - Objective Vital Signs & Weight: Vital Signs (12 hours) Temp Pulse Pulse Resp BP BP BP 10/15/17 10:21 91 122/56 L 10/15/17 08:00 98.2 F 94 18 113/56 L 10/15/17 06:44 10/15/17 04:18 98.5 F 84 17 107/60 Pulse Ox Pulse Ox 10/15/17 10:21 94 L 10/15/17 08:00 93 L 10/15/17 06:44 95 10/15/17 04:18 95 Weight Weight 110.813 kg I&O: 10/14/17 10/15/17 10/16/17 06:59 06:59 06:59 Intake Total 1960 980 Output Total 875 Balance 1085 980 Result Diagrams: 10/15/17 05:11 10/15/17 05:11 <Martin Gomes - Last Filed: 10/15/17 12:31> Phys Exam - Physical Examination Constitutional: NAD HEENT: moist MMs, sclera anicteric Neck: supple, full ROM Respiratory: no wheezing, no rales, clear to auscultation bilateral Cardiovascular: RRR, no significant murmur Gastrointestinal: soft, non-tender, no distention Musculoskeletal: pulses present, edema present b/l edema x1 Neurological: non-focal, moves all 4 limbs Psychiatric: normal affect, A&O x 3 Skin: no rash, normal turgor <Atwood,Елена - Last Filed: 10/15/17 08:30> Dx/Plan (1) Pulmonary embolus Code(s): I26.99 - OTHER PULMONARY EMBOLISM WITHOUT ACUTE COR PULMONALE Status : Acute (2) DVT (deep venous thrombosis) Code(s): I82.409 - ACUTE EMBOLISM AND THOMBOS UNSP DEEP VN UNSP LOWER EXTREMITY Status: Acute (3) LUISA (acute kidney injury) Code(s): N17.9 - ACUTE KIDNEY FAILURE, UNSPECIFIED Status: Acute (4) Diabetes mellitus type 2 in obese Code(s): E11.69 - TYPE 2 DIABETES MELLITUS WITH OTHER SPECIFIED COMPLICATION; E66.9 - OBESITY, UNSPECIFIED Status: Chronic (5) HTN (hypertension) Code(s): I10 - ESSENTIAL (PRIMARY) HYPERTENSION Status: Chronic (6) GERD (gastroesophageal reflux disease) Code(s): K21.9 - GASTRO-ESOPHAGEAL REFLUX DISEASE WITHOUT ESOPHAGITIS Status: Chronic (7) HLD (hyperlipidemia) Code(s): E78.5 - HYPERLIPIDEMIA, UNSPECIFIED Status: Chronic (8) History of [place] (myocardial infarction) Code(s): I25.2 - OLD MYOCARDIAL INFARCTION Status: Chronic (9) History of CVA (cerebrovascular accident) Code(s): Z86.73 - PRSNL HX OF TIA (TIA), AND CEREB INFRC W/O RESID DEFICITS Status: Chronic (10) Hypertension Code(s): I10 - ESSENTIAL (PRIMARY) HYPERTENSION Status: Chronic (11) Macrocytic anemia Code(s): D53.9 - NUTRITIONAL ANEMIA, UNSPECIFIED Status: Chronic (12) Hypotension Status: Resolved (13) Diastolic dysfunction Code(s): I51.9 - HEART DISEASE, UNSPECIFIED Status: Acute - Plan Plan: 67 yo F with acute hypoxic respiratory failure 2/2 PE, uncontrolled DM, UTI, macrocytic anemia. Clinically unimproved from admission. 1. Acute hypoxic respiratory failure 2/2 bilateral PE -Currently 95 % on 5L NC -Continue Xarelto 15mg BID, continue PT Plan: Patient is clinically stable. Dr. Rausch has signed off rx outpt followup. 2. 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 Catheter associated UTI, proteus -s/p Gentamicin x1 -growing gram + cocci, will discuss with team to give gentamicin to prophylactically cover proteus and Gram + 4. Macrocytic anemia with inadequate reticulocyte response -Per clinic charts h/o of macrocytic anemia starting in Mar 2017 -B12 & folate nml -PBS: macrocytosis, thrombocytosis -Possible causes: underlying myelodysplastic syndrome, liver dz, inflamm disorders Plan: non-contributory at this time, can further workup in outpatient setting 5. New onset of IDDM, well controlled -Well controlled on 14 units of Lantus and max metformin. POCs overnight have been 111-249 -continue to monitor with accuchecks, Agressive SS PRN 6. Diastolic dysfunction -Echo (10/11): diastolic dysfx, severe TR, EF 55-60%, severely elevated PA pressure -Pt. mildly fluid overloaded with inc. weights and 1+ BLE edema -Pt. currently home lisinopril/hctz held due to low SBPs <100 Plan: Daily weights, I/Os, will give dose of hctz/lisinopril x1 7. CKD2 -likely 2/2 diabetic nephropathy -UA: proteinuria 8. HTN -Lisinopril/HCTZ 10-12.5 yesterday x1 for reported congestion -Hold home lisinopril due to low SBPs of <100mmHg, give PRN 9. Hx of CVA -Continue home ASA, statin 10. Physical deconditioning -Insurance approved inpt. rehab for continued PT 11. Persistent atypical chest pain -likely 2/2 PE clearance -Troponins (10/10) negative, EKG (10/08) unchanged from admission 12. HLD -Continue home statin 13. Hx of [place] -aware, continue home statin DVT ppx: xarelto GI ppx: protonix Dispo: Pt. is able to tolerate ambulating with assist to bathroom on 5L NC. Still physically deconditioned, but improved since admission. Still continues to expectorate small blood clots. Medically stable and patient expresses readiness to go to inpt rehab. Will plan for transfer today after rounding. Discussed with Dr. Gomes <Елена Atwood - Last Filed: 10/15/17 08:30> Attending Addendum - Attending Addendum Date/Time: 10/15/17 1230 I personally evaluated the patient and discussed the management with Dr. Atwood. I agree with the History, Examination, Assessment and Plan documented above with any addition or exceptions noted below. Patient feeling well, respiratory status stable. Will need continued O2 therapy and anticoagulation. Working with PT and stable for discharge to inpatient rehab at this time. Will need to complete therapy for UTI in the post acute care setting. Will work to transfer to rehab facility today. <Martin Gomes - Last Filed: 10/15/17 12:31>
[2017-10-15 06:25] LABS: ALT (SGPT) 14 U/L (8-55); AST (SGOT) 17 U/L (5-34); Albumin 3.5 g/dL (3.4-4.8); Alkaline Phosphatase 82 U/L (40-150); Anion Gap 16 mmol/L (10-20); BUN (Urea Nitrogen) 13 mg/dL (9.8-20.1); Bilirubin, Total 0.3 mg/dL (0.2-1.2); Calc. Creatinine Clearance 111 mL/min (70-130); Calcium 8.9 mg/dL (7.8-10.44); Carbon Dioxide 19 mmol/L (23-31); Chloride 107 mmol/L (98-107); Estimated GFR-MDRD 81; Globulin 3.3 g/dL (2.4-3.5); Glucose 116 mg/dL (80-115); Potassium 4.2 mmol/L (3.5-5.1); Protein, Total 6.8 g/dL (6.0-8.3); Sodium 138 mmol/L (136-145)
[2017-10-15 06:53] LABS: Band 6 % (5-11); Hemoglobin 8.1 g/dL (12.0-16.0); Hypochromia SLIGHT = 6-15 cells (100X) (0-5/hpf); Lymphocytes 66 % (21-51); MDiff Complete? YES; Mean Corpuscular HGB CONC 32.1 g/dL (32.0-36.0); Mean Corpuscular Hemoglobin 37.4 pg (27.0-31.0); Mean Platelet Volume 10.9 fL (7.4-10.4); Monocytes 3 % (0-10); Neutrophil 25 % (42-75); PLT Morphology Comment Appears Increased; Platelet Count 373 thou/uL (130-400); RBC Distribution Width 16.8 % (11.5-14.5); Red Blood Cell (RBC) Count 2.17 mill/uL (4.20-5.40); White Blood Cell (WBC) Count 5.9 thou/uL (4.8-10.8)
[2017-10-15] MEDS: metFORMIN 500 MG TAB PO SCH ×2 (08:10→17:57)
[2017-10-15] MEDS: Rivaroxaban 15 MG TAB PO SCH ×2 (08:10→17:57)
[2017-10-15] MEDS: Loratadine 10 MG TAB PO SCH (08:11)
[2017-10-15] MEDS: Magnesium Chloride 64 MG TAB PO SCH ×2 (08:15→21:08)
[2017-10-15] MEDS ORDERED: Lisinopril/Hydrochlorothiazide 10 mg/12.5 mg Tablet PO PRN (08:44)
[2017-10-15] MEDS ORDERED: Sulfameth/Trimethoprim DS 800-160mg TAB PO SCH ×2 (09:00→21:00)
[2017-10-15] MEDS ORDERED: Cipro 250 MG TAB PO SCH (10:30)
[2017-10-15] MEDS ORDERED: Nitrofurantoin Monohyd/M-Cryst 100 MG CAP PO SCH (11:15)
[2017-10-15] MEDS: Cipro 250 MG TAB PO SCH ×2 (13:02→21:07)
[2017-10-15] MEDS: Acetaminophen 325 MG TAB PO PRN (19:42)
[2017-10-15] MEDS: Atorvastatin Calcium 40 MG TAB PO SCH (21:07)
[2017-10-15] MEDS: Insulin Glargine 14 UNITS in Pre-Filled Syringe 1 EACH SC SCH (21:08)
[2017-10-15] MEDS: Nitrofurantoin Monohyd/M-Cryst 100 MG CAP PO SCH (21:08)
[2017-10-16] MEDS ORDERED: Calcium Carbonate 500 MG ChewTAB PO PRN (03:58)
[2017-10-16] MEDS ORDERED: Ondansetron ODT 8 MG TAB SL PRN (03:58)
[2017-10-16 05:41] LABS: ALT (SGPT) 13 U/L (8-55); AST (SGOT) 11 U/L (5-34); Albumin 3.7 g/dL (3.4-4.8); Alkaline Phosphatase 77 U/L (40-150); Anion Gap 15 mmol/L (10-20); BUN (Urea Nitrogen) 10 mg/dL (9.8-20.1); Bilirubin, Total 0.3 mg/dL (0.2-1.2); Calc. Creatinine Clearance 113 mL/min (70-130); Carbon Dioxide 23 mmol/L (23-31); Chloride 105 mmol/L (98-107); Estimated GFR-MDRD 84; Globulin 3.4 g/dL (2.4-3.5); Glucose 114 mg/dL (80-115); Potassium 3.6 mmol/L (3.5-5.1); Protein, Total 7.1 g/dL (6.0-8.3); Sodium 139 mmol/L (136-145)
--- NOTE | 2017-10-16 05:44 | PDOC.FM ---
- Subjective Subjective: No acute events overnight. Still experiencing dyspnea on exertion but able to tolerate walking to bathroom with assist and on 4L of NC. Reports feeling better than yesterday. Seems to feel better overall after expectorating blood clots. - Objective MAR Reviewed: Yes Vital Signs & Weight: Vital Signs (12 hours) Temp Pulse Resp BP BP Pulse Ox 10/16/17 03:37 98.1 F 80 19 115/69 99 10/15/17 19:30 97.3 F L 78 16 117/57 L 99 Weight Weight 110.813 kg I&O: 10/14/17 10/15/17 10/16/17 06:59 06:59 06:59 Intake Total 1960 980 480 Output Total 875 Balance 1085 980 480 Result Diagrams: 10/16/17 04:34 10/16/17 04:34 <Елена Atwood - Last Filed: 10/16/17 08:38> - Objective Vital Signs & Weight: Vital Signs (12 hours) Temp Pulse Resp BP BP Pulse Ox 10/16/17 08:00 98.1 F 85 18 121/66 92 L 10/16/17 03:37 98.1 F 80 19 115/69 99 Weight Weight 112.219 kg I&O: 10/15/17 10/16/17 10/17/17 06:59 06:59 06:59 Intake Total 980 880 Balance 980 880 Result Diagrams: 10/16/17 04:34 10/16/17 04:34 <Martin Gomes - Last Filed: 10/16/17 09:18> Phys Exam - Physical Examination Constitutional: NAD HEENT: moist MMs Neck: no nodes, supple Respiratory: no wheezing, no rales, clear to auscultation bilateral Cardiovascular: RRR, no significant murmur Gastrointestinal: soft, non-tender Musculoskeletal: pulses present b/l trace edema Neurological: non-focal, moves all 4 limbs Psychiatric: normal affect, A&O x 3 Skin: no rash, normal turgor <Елена Atwood - Last Filed: 10/16/17 08:38> Dx/Plan (1) Pulmonary embolus Code(s): I26.99 - OTHER PULMONARY EMBOLISM WITHOUT ACUTE COR PULMONALE Status : Acute (2) DVT (deep venous thrombosis) Code(s): I82.409 - ACUTE EMBOLISM AND THOMBOS UNSP DEEP VN UNSP LOWER EXTREMITY Status: Acute (3) LUISA (acute kidney injury) Code(s): N17.9 - ACUTE KIDNEY FAILURE, UNSPECIFIED Status: Acute (4) Diabetes mellitus type 2 in obese Code(s): E11.69 - TYPE 2 DIABETES MELLITUS WITH OTHER SPECIFIED COMPLICATION; E66.9 - OBESITY, UNSPECIFIED Status: Chronic (5) HTN (hypertension) Code(s): I10 - ESSENTIAL (PRIMARY) HYPERTENSION Status: Chronic (6) GERD (gastroesophageal reflux disease) Code(s): K21.9 - GASTRO-ESOPHAGEAL REFLUX DISEASE WITHOUT ESOPHAGITIS Status: Chronic (7) HLD (hyperlipidemia) Code(s): E78.5 - HYPERLIPIDEMIA, UNSPECIFIED Status: Chronic (8) History of AR (myocardial infarction) Code(s): I25.2 - OLD MYOCARDIAL INFARCTION Status: Chronic (9) History of CVA (cerebrovascular accident) Code(s): Z86.73 - PRSNL HX OF TIA (TIA), AND CEREB INFRC W/O RESID DEFICITS Status: Chronic (10) Hypertension Code(s): I10 - ESSENTIAL (PRIMARY) HYPERTENSION Status: Chronic (11) Macrocytic anemia Code(s): D53.9 - NUTRITIONAL ANEMIA, UNSPECIFIED Status: Chronic (12) Hypotension Status: Resolved (13) Diastolic dysfunction Code(s): I51.9 - HEART DISEASE, UNSPECIFIED Status: Acute - Plan Plan: - Plan Plan: 67 yo F with acute hypoxic respiratory failure 2/2 PE, uncontrolled DM, UTI, macrocytic anemia. Clinically unimproved from admission. 1. Acute hypoxic respiratory failure 2/2 bilateral PE -Currently 95 % on 3.5L NC resting, continue to wean O2 as tolerated -Continue Xarelto 15mg BID, continue PT Plan: Patient is clinically stable. Dr. Rausch has signed off rx outpt followup. 2. 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 Catheter associated UTI, proteus and enterococcus faecalis -s/p Gentamicin x1, completed 4 day bactrim course -E. faecalis: started on nitrofurantoin, day 2/5 of abx 4. Macrocytic anemia with inadequate reticulocyte response -Per clinic charts h/o of macrocytic anemia starting in Mar 2017 -B12 & folate nml -PBS: macrocytosis, thrombocytosis -Possible causes: underlying myelodysplastic syndrome, liver dz, inflamm disorders Plan: non-contributory at this time, can further workup in outpatient setting 5. New onset of IDDM, well controlled -Well controlled on 14 units of Lantus and max metformin. POCs overnight have been 111-249 -continue to monitor with accuchecks, Agressive SS PRN 6. Diastolic dysfunction -Echo (10/11): diastolic dysfx, severe TR, EF 55-60%, severely elevated PA pressure -Pt. mildly fluid overloaded with inc. weights and 1+ BLE edema -Pt. currently home lisinopril/hctz held due to low SBPs <100 Plan: Daily weights, I/Os, will give dose of hctz/lisinopril x1 7. CKD2 -likely 2/2 diabetic nephropathy -UA: proteinuria 8. HTN -Lisinopril/HCTZ 10-12.5 yesterday x1 for reported congestion -Hold home lisinopril due to low SBPs of <100mmHg, give PRN 9. Hx of CVA -Continue home ASA, statin 10. Physical deconditioning -Insurance approved inpt. rehab for continued PT 11. Persistent atypical chest pain -likely 2/2 PE clearance -Troponins (10/10) negative, EKG (10/08) unchanged from admission 12. HLD -Continue home statin 13. Hx of AR -aware, continue home statin DVT ppx: xarelto GI ppx: protonix Dispo: Pt. is able to tolerate ambulating with assist to bathroom on 5L NC. Still physically deconditioned, but improved since admission. Still continues to expectorate small blood clots. Medically stable and patient expresses readiness to go to inpt rehab. Unable to be transferred yesterday b/c no beds available. Will plan for transfer today after rounding. Discussed with Dr. Gomes <Елена Atwood - Last Filed: 10/16/17 08:38> Attending Addendum - Attending Addendum Date/Time: 10/16/17 0918 I personally evaluated the patient and discussed the management with Dr. Atwood. I agree with the History, Examination, Assessment and Plan documented above with any addition or exceptions noted below. Patient feeling improved this morning and taking shower. She is stable medically for transfer to rehab and will work to accomplish that today. Continue O2 therapy as needed and anticoagulation. Will follow up with Pulm in outpatient setting. <Martin Gomes - Last Filed: 10/16/17 09:18>
[2017-10-16 06:20] LABS: Band 9 % (5-11); Hemoglobin 8.1 g/dL (12.0-16.0); Large Platelets SLIGHT; Lymphocytes 52 % (21-51); MDiff Complete? YES; Mean Corpuscular HGB CONC 31.6 g/dL (32.0-36.0); Mean Corpuscular Hemoglobin 37.1 pg (27.0-31.0); Mean Platelet Volume 11.2 fL (7.4-10.4); Neutrophil 39 % (42-75); PLT Morphology Comment Appears Increased; Platelet Count 432 thou/uL (130-400); RBC Distribution Width 16.7 % (11.5-14.5); Red Blood Cell (RBC) Count 2.18 mill/uL (4.20-5.40); White Blood Cell (WBC) Count 5.8 thou/uL (4.8-10.8)
[2017-10-16] MEDS: Loratadine 10 MG TAB PO SCH (08:43)
[2017-10-16] MEDS: Rivaroxaban 15 MG TAB PO SCH (08:43)
[2017-10-16] MEDS: Nitrofurantoin Monohyd/M-Cryst 100 MG CAP PO SCH (08:43)
[2017-10-16] MEDS: metFORMIN 500 MG TAB PO SCH (08:43)
[2017-10-16] MEDS: Cipro 250 MG TAB PO SCH (08:43)
[2017-10-16] MEDS: Magnesium Chloride 64 MG TAB PO SCH (08:45)
[2017-10-16] MEDS ORDERED: Lisinopril/Hydrochlorothiazide 10 mg/12.5 mg Tablet PO SCH (09:30)
[2017-10-16 16:23] VITALS: BP 120/68; TEMP 97.6
--- NOTE | 2017-10-20 11:44 | PQF ---
RISSA EDWARDS NIYA MASSEY [id number] CLINICAL DOCUMENTATION CLARIFICATION FORM: POST DISCHARGE Addendum to original discharge summary date: ____ Late entry note date: __ DATE: 10/20/2017 ATTN: SHILPA Please exercise your independent, professional judgment in responding to the clarification form. Clinical indicators are provided on the bottom of this form for your review Please check appropriate box(s): HEART FAILURE: A. TYPE: [ ] Systolic / HFrEF [ x ] Diastolic / HFpEF [ ] Combined Systolic / Diastolic B. ACUITY [ ] Acute [ ] Acute on Chronic [ ] Chronic [ ] Other diagnosis [ x ] Unable to determine In addition, please specify: Present on Admission (POA): [ ] Yes [ ] No [ x] Unable to determine For continuity of documentation, please document condition throughout progress notes and discharge summary. Thank You. CLINICAL INDICATORS - SIGNS / SYMPTOMS / LABS: EF: 55-60% H&P: Acute Diastolic CHF ECHO 10/11: Diastolic dysfunction 10/11 PN: Unspecified Diastolic CHF - Chronic RISKS: CKD Hypertension ARF Pulmonary Embolus TREATMENTS: Cardiac monitoring (This form is maintained as a part of the permanent medical record) 2014 [employer]. All Rights Reserved Anita Corcoran, [facility], [facility] [email or web address] [phone] [place]
== END 2017-10-16 16:29 | DRG 175 ==
LOC: EEVIPCON 21:39 → ERS 21:39 → 2NO 10-06 02:01 → IMCU/EMU 10-10 17:32 → 2NO 10-12 19:31
PROVIDERS: ADMIT Emergency Medicine; ATTEND Emergency Medicine
DX: I26.99 Other pulmonary embolism without acute cor pulmonale (principal); J96.01 Acute respiratory failure with hypoxia; T83.511A Infection and inflammatory reaction due to indwelling urethral catheter, initial encounter; N39.0 Urinary tract infection, site not specified; D66 Hereditary factor VIII deficiency; N17.9 Acute kidney failure, unspecified; I13.0 Hypertensive heart and chronic kidney disease with heart failure and stage 1 through stage 4 chronic kidney disease, or unspecified chronic kidney disease; I50.32 Chronic diastolic (congestive) heart failure; I82.431 Acute embolism and thrombosis of right popliteal vein; I82.441 Acute embolism and thrombosis of right tibial vein; Z86.73 Personal history of transient ischemic attack (TIA), and cerebral infarction without residual deficits; K21.9 Gastro-esophageal reflux disease without esophagitis; E78.5 Hyperlipidemia, unspecified; G89.4 Chronic pain syndrome; I27.24 Chronic thromboembolic pulmonary hypertension; Y84.6 Urinary catheterization as the cause of abnormal reaction of the patient, or of later complication, without mention of misadventure at the time of the procedure; Y92.230 Patient room in hospital as the place of occurrence of the external cause; E11.69 Type 2 diabetes mellitus with other specified complication; E66.9 Obesity, unspecified; I25.2 Old myocardial infarction; D53.9 Nutritional anemia, unspecified; E11.22 Type 2 diabetes mellitus with diabetic chronic kidney disease; N18.2 Chronic kidney disease, stage 2 (mild); B96.4 Proteus (mirabilis) (morganii) as the cause of diseases classified elsewhere; E11.21 Type 2 diabetes mellitus with diabetic nephropathy; E11.65 Type 2 diabetes mellitus with hyperglycemia; E87.6 Hypokalemia; I95.9 Hypotension, unspecified; Z68.36 Body mass index [BMI] 36.0-36.9, adult
CPT/HCPCS: 36415; 36416; 71045; 71275; 78582; 80053; 81001; 81240; 81241; 82043; 82553; 82565; 82570; 82607; 82746; 82805; 83036; 83090; 83540; 83550; 83690; 83735; 83880; 84300; 84484; 85014; 85018; 85025; 85046; 85049; 85060; 85240; 85300; 85303; 85305; 85307; 85379; 85520; 85598; 85610; 85730; 86147; 87077; 87086; 87186; 93005; 93010; 93306; 93798; 93970; 94760; 96374; A4216; A9540; A9558; G8978-GP-CL; G8979-GP-CI; G8979-GP-CJ; G8987-GO-CK; G8987-GO-CL; G8988-GO-CI; J1580; J1650; J1815; J1940; J3480; Q0162

== ENCOUNTER 2017-12-01 09:00 | Outpatient (CLI) | payer MEDICARE | END 2017-12-01 09:01 | disposition home or self-care (01) | LOC: CP 09:00 | PROVIDERS: ATTEND Internal Medicine | DX: R06.09 Other forms of dyspnea (principal); I27.20 Pulmonary hypertension, unspecified; G47.33 Obstructive sleep apnea (adult) (pediatric) | CPT/HCPCS: 94060; 94727; 94729 ==

== ENCOUNTER 2017-12-04 20:44 | Inpatient (IN) | payer MEDICARE ==
--- NOTE | 2017-12-04 21:36 | RAD ---
PORTABLE CHEST: 12/04/17 HISTORY: Difficulty breathing. COMPARISON: 10/10/17 study. Heart size is enlarged. Atherosclerotic changes are seen in the aorta. The lungs are clear of infiltr ates. Postop changes of both shoulders are seen. IMPRESSION: Cardiomegaly. No acute findings. POS: [facility]
[2017-12-04 22:14] LABS: Hemoglobin 5.5 g/dL (12.0-16.0); Mean Corpuscular HGB CONC 31.1 g/dL (32.0-36.0); Mean Corpuscular Hemoglobin 32.9 pg (27.0-31.0); Mean Platelet Volume 10.3 fL (7.4-10.4); Platelet Count 929 thou/uL (130-400); RBC Distribution Width 32.5 % (11.5-14.5); Red Blood Cell (RBC) Count 1.67 mill/uL (4.20-5.40); White Blood Cell (WBC) Count 7.2 thou/uL (4.8-10.8)
[2017-12-04 22:16] LABS: ALT (SGPT) 13 U/L (8-55); AST (SGOT) 16 U/L (5-34); Alkaline Phosphatase 68 U/L (40-150); Anion Gap 15 mmol/L (10-20); BUN (Urea Nitrogen) 18 mg/dL (9.8-20.1); Bilirubin, Total 0.3 mg/dL (0.2-1.2); Calc. Creatinine Clearance 0 mL/min (70-130); Calcium 9.7 mg/dL (7.8-10.44); Carbon Dioxide 25 mmol/L (23-31); Chloride 103 mmol/L (98-107); Estimated GFR-MDRD 72; Globulin 3.3 g/dL (2.4-3.5); Glucose 138 mg/dL (80-115); Potassium 3.6 mmol/L (3.5-5.1); Protein, Total 7.3 g/dL (6.0-8.3); Sodium 139 mmol/L (136-145)
[2017-12-04 22:20] LABS: CKMB 0.9 ng/mL (0-6.6); Troponin I Less than 0.010 ng/mL (< 0.028)
[2017-12-04 22:21] LABS: Anisocytosis MODERATE=16-30 cells (100X) (0-5/hpf); Band 10 % (5-11); Eosinophils 4 % (0-10); Large Platelets SLIGHT; Lymphocytes 22 % (21-51); MDiff Complete? YES; Macrocytosis SLIGHT = 6-15 cells (100X) (0-5/hpf); Monocytes 4 % (0-10); Neutrophil 60 % (42-75); PLT Morphology Comment Appears Increased
--- NOTE | 2017-12-05 | PDOC.FPRHP ---
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 Was recently admitted 10/06/17 for b/l PE's and discharged 10/16 to inpatient rehab on Xarelto and O2 requirement of 5L but was able to titrate down to 2L and 4-5L with exertion. Coag studies positive for increased Factor 8. She was offered the option of TPA but declined due to increased risk of bleeding. For the last 2 days she has felt fatigued, experienced chills, worsening SOB, pleuritic CP, and lightheadedness with standing. She denies melena, PRBPR, hematemesis, vaginal bleeding. Does endorse some small clots coming up when coughing. She reports coughing frequently since discharge. - Allergies/Adverse Reactions Allergies Allergy/AdvReac Type Severity Reaction Status Date / Time adhesive Allergy Verified 06/13/16 10:12 cefazolin sodium [From Ancef] Allergy Rash Verified 06/13/16 10:12 Cephalosporins Allergy Rash Verified 06/13/16 10:12 codeine Allergy Hives Verified 06/13/16 10:12 Iodinated Contrast- Oral and Allergy Emesis Verified 06/13/16 10:12 IV Dye [Iodinated Contrast Media - IV Dye] meperidine HCl [From Demerol] Allergy Rash Verified 06/13/16 10:12 naproxen sodium [From Aleve] Allergy "chest Verified 06/13/16 10:12 pain" peanut Allergy Verified 06/13/16 10:12 - Home Medications Medication Instructions Recorded Confirmed Type Omeprazole 20 mg PO DAILY 11/04/16 12/05/17 History Albuterol Sulfate HFA (OR) 0 puff INH PRN PRN 10/06/17 12/05/17 History [Proventil Hfa (or)] Aspirin 81 mg PO HS 10/06/17 12/05/17 History Atorvastatin Calcium [Lipitor] 40 mg PO HS 10/06/17 12/05/17 History Cholecalciferol (Vitamin D3) 1,000 unit PO DAILY 10/06/17 12/05/17 History [Vitamin D3] Loratadine [Claritin] 10 mg PO DAILY 10/06/17 12/05/17 History Triamcinolone Acetonide [Nasacort 2 spray EA NARE DAILY PRN 10/06/17 12/05/17 History Allergy 24 HR] Benzonatate [Tessalon] 100 mg PO Q4H PRN #30 cap 10/09/17 12/05/17 Rx Ondansetron [Zofran ODT] 4 mg PO Q6H PRN #30 tab 10/09/17 12/05/17 Rx Rivaroxaban [Xarelto] 15 mg PO BID-WM 90 Days tab 10/09/17 12/05/17 Rx Insulin Glargine [Lantus Vial] 14 units SC HS #10 vial 10/14/17 12/05/17 Rx Lisinopril/Hydrochlorothiazide 1 tab PO ONE PRN #30 tab 10/15/17 12/05/17 Rx [Prinizide] Nitrofurantoin Monohyd/M-Cryst 100 mg PO BID 5 Days cap 10/15/17 12/05/17 Rx [Macrobid] Calcium Carbonate [Tums] 1,000 mg PO DAILYPRN PRN tab 10/16/17 12/05/17 Rx metFORMIN HCl 500 mg PO BID-WM 12/05/17 12/05/17 History - History PMHx: Chronic Hypoxic Respiratory failure, b/l PE's, Anemia, pulmonary HTN, HFpEF, DMII, HTN, HLD, hx of CVA, hx of [place], CKD2, GERD PSHx: Laparoscopic laminectomy, herniated disc replacement, section, bilateral shoulder shoulder sx, B/L knee replacement FHx: Mother & father from [place] Social: No EtOH, tobacco or drug abuse. - Review of Systems General: reports: fever/chills, fatigue, other (reports JONES, lightheadedness with standing). denies: weight/appetite/sleep changes Eyes: denies: eye pain, vision changes ENT: denies: nasal congestion, rhinorrhea Respiratory: reports: cough, shortness of breath, exercise intolerance Cardiovascular: reports: chest pain, edema Gastrointestinal: denies: nausea, vomiting, diarrhea, abdominal pain, GI bleeding Genitourinary: reports: other (denies hematuria). denies: dysuria Skin: denies: rashes, lesions Musculoskeletal: reports: pain, stiffness Neurological: reports: weakness. denies: numbness - Vital signs BP: 147/72 HR: 106 RR: 25 Tmax: 99.1 Pox: 92% on 4.5 Wt: 111.13kg - Physical Exam Constitutional: NAD, awake, alert and oriented, well developed HEENT: normocephalic and atraumatic, PERRLA, MMM, oropharynx clear, other ( conjunctival pallor) Neck: supple, trachea midline Heart: RRR -Heart: II/VII Systolic murmur -Lungs: Inspiratory stridor Abdomen: soft, non-tender, bowel sounds present Musculoskeletal: normal structure, normal tone Neurological: no focal deficit, other (5/5 UE & LE strength) Skin: no rash/lesions, other (delayed cap refill) Psychiatric: normal mood and affect, good judgment and insight, intact recent and remote memory FMR H&P: Results - Labs Result Diagrams: 12/05/17 00:10 12/05/17 05:55 Lab results: WBC 7.2 thou/uL (4.8-10.8) 12/04/17 21:48 Hgb 5.5 g/dL (12.0-16.0) L* 12/04/17 21:48 Hct 17.6 % (36.0-47.0) L 12/04/17 21:48 MCV 106.0 fL (78.0-98.0) H 12/04/17 21:48 Plt Count 929 thou/uL (130-400) H* 12/04/17 21:48 Band Neuts % (Manual) 10 % (5-11) 12/04/17 21:48 Sodium 139 mmol/L (136-145) 12/04/17 21:48 Potassium 3.6 mmol/L (3.5-5.1) 12/04/17 21:48 Chloride 103 mmol/L (98-107) 12/04/17 21:48 Carbon Dioxide 25 mmol/L (23-31) 12/04/17 21:48 BUN 18 mg/dL (9.8-20.1) 12/04/17 21:48 Creatinine 0.93 mg/dL (0.6-1.1) 12/04/17 21:48 Glucose 138 mg/dL (80-115) H 12/04/17 21:48 Calcium 9.7 mg/dL (7.8-10.44) 12/04/17 21:48 Total Bilirubin 0.3 mg/dL (0.2-1.2) 12/04/17 21:48 AST 16 U/L (5-34) 12/04/17 21:48 ALT 13 U/L (8-55) 12/04/17 21:48 Alkaline Phosphatase 68 U/L (40-150) 12/04/17 21:48 CK-MB (CK-2) 0.9 ng/mL (0-6.6) 12/04/17 21:48 Serum Total Protein 7.3 g/dL (6.0-8.3) 12/04/17 21:48 Albumin 4.0 g/dL (3.4-4.8) 12/04/17 21:48 - EKG Interpretation EKG: sinus tachycardia - Radiology Interpretation Chest x-ray Status: report reviewed by me Additional comment: Cardiomegaly no acute findings FMR H&P: A/P - Problem List (1) Acute on chronic respiratory failure with hypoxia Current Visit: Yes Status: Acute Code(s): J96.21 - ACUTE AND CHRONIC RESPIRATORY FAILURE WITH HYPOXIA (2) DM2 (diabetes mellitus, type 2) Current Visit: No Status: Acute Qualifiers: Diabetes mellitus complication status: without complication (3) Pulmonary embolus Current Visit: No Status: Acute Code(s): I26.99 - OTHER PULMONARY EMBOLISM WITHOUT ACUTE COR PULMONALE (4) Diastolic congestive heart failure Current Visit: No Status: Chronic Code(s): I50.30 - UNSPECIFIED DIASTOLIC ( CONGESTIVE) HEART FAILURE (5) GERD (gastroesophageal reflux disease) Current Visit: No Status: Chronic Code(s): K21.9 - GASTRO-ESOPHAGEAL REFLUX DISEASE WITHOUT ESOPHAGITIS (6) HLD (hyperlipidemia) Current Visit: No Status: Chronic Code(s): E78.5 - HYPERLIPIDEMIA, UNSPECIFIED (7) HTN (hypertension) Current Visit: No Status: Chronic Code(s): I10 - ESSENTIAL (PRIMARY) HYPERTENSION (8) History of CVA (cerebrovascular accident) Current Visit: No Status: Chronic Code(s): Z86.73 - PRSNL HX OF TIA (TIA), AND CEREB INFRC W/O RESID DEFICITS (9) History of [place] (myocardial infarction) Current Visit: No Status: Chronic Code(s): I25.2 - OLD MYOCARDIAL INFARCTION (10) Macrocytic anemia Current Visit: No Status: Chronic Code(s): D53.9 - NUTRITIONAL ANEMIA, UNSPECIFIED - Plan Acute on Chronic Symptomatic Macrocytic Anemia - GI bleed vs worsening anemia of chronic disease - Baseline 7-8 - Initial Hgb 5.5 - Transfusing 2 U pRBCs ordered in ED - Post transfusion H&H - Will consult GI in AM - NPO for possible scope pending GI recommendations - Continue to monitor Chronic Hypoxic Respiratory failure - 2/2 PE - New O2 requirement at 10/06 admission, discharged on 5L - Currently requiring 4.5L to maintain sats >92% - Titrate O2 to SpO2 >92% - Will admit to tele Bilateral PE's - Discharged on 10/16 on Xarelto - Offered TPN at last admission to expedite recovery, pt declined due to increased risk of bleed - Will hold Xarelto (last taken 1700 today) and start Heparin gtt in AM due to reversibility in setting of possible GI bleed Thrombocytosis - Unknown Etiology - Elevated during past admission - Will continue to monitor with CBC DMII, uncontrolled - Newly diagnosed at last admission 09/2017 - Last Hgb A1c 10/06/17: 14.5% - Continue home Lantus 15U HS, metformin - Mild SSI - Hypoglycemic protocol - ACHS accuchecks HFpEF - Last Echo 10/11/17: 55-60% EF, diastolic dysfunction, severely elevated pulmonary artery pressure - CXR with no infiltrates - Continue home meds - Monitor volume status Pulmonary HTN - likely 2/2 chronic thromboembolic disease - Follows outpt with Dr Rausch HTN - Continue home lisinopril-HCTZ Hx of CVA - No residual weakness noted on exam - Will continue Atorvastatin, ASA Hx of [place] - Continue home meds GERD - Continue home omeprazole Code Status: FULL DVT ppx: Therapeutic Heparin gtt FMR H&P: Upper Level - Pertinent history 67 y/o F w/ PMHx of b/l PEs diagnosed during recent hospitalization from 10/06- now on oral NOAC presents for evaluation of shortness of breath and chills that have been going on for a few days but worse over the past 12 hours. Pt reports coughing up blood clots periodically which she has been doing since her previous d/c from the hospital on 10/16. Denies any fever. Recent PFTs w/ pulmonology Dr. Rausch. Pt concerned as these sxs were similar to prior sxs when she was diagnosed w/ PEs 1.5 months ago. Denies any hematochezia, melena, hematemesis, coffee ground emesis, or vaginal bleeding. Reports taking medication as prescribed. - Pertinent findings BP 123/79 P 91 RR 91 Temp 99.1 DegF O2sat 100% on 4L NC WBC 7.2 Hgb 17.6 Platelet 929 PT 28.1 INR 2.6 PTT 56.6 BUN 18 Cr 0.93 (GFR 72) Gluc 138 Trop I - < 0.010 CXR NAD EKG Sinus tach rate 108 GEN: NAD, sitting up in bed talking in full sentences w/ NC on HEENT: Normocephalic, atraumatic. PERRLA, EOMI CARDS: RRR, 2/6 MILAGRO, no rubs, or gallops PULM: CTA-B/l, no wheezes or rhonci. No increased resp effort GI: Soft, NTTP, no rigidty, no guarding, BSx4 Ext: No edema noted, moves all 4 ext equally Skin: Subconjunctival pallor noted - Plan Date/Time: 12/04/17 7600 I, B. Osei Andrew MD, have evaluated this patient and agree with findings/plan as outlined by internet cafe manager resident. Pertinent changes/additions are listed here. 67 y/o F w/: 1)Acute on Chronic Symptomatic Macrocytic Anemia - Pt on anticoagulant w/ xarelto for b/l PEs dx during prior hospitalization. No obious source of bleeding besides the clots she references coughing up, but this is likely 2/2 drying effect from her non-humidified O2. - Will obtain FOBT for further evaluation and consider GI consult in the morning for further eval - Pt will need to continue w/ anticoagulation 2/2 #2. Will transition over to Heparin gtt as we can reverse this if needed in the setting of large volume bleed which patient currently denies. Discussed dosing and timing of starting drip w/ Dr. Kapoor of pharmacy and will plan to start when her next dose of xarelto is due at approx. 7988-7042 AM. - Macrocytosis possibly 2/2 AOCD vs GI bleed - Will send off for peripheral smear for further evaluation. Obtain reticulocyte count to monitor bone marrow function for possible myelodysplastic syndrome. - Patient type and crossed for 2U PRBC in the ER which are in the process of being transfused. Plan for repeat H/H 6 hours s/p transfusion to monitor for adequate response. Review of echo showing findings suggestive of diastolic dysfunction which is likely related to #4. Will monitor patient closely and start Lasix if patient appears to becoming volume overloaded in the setting of PRBC transfusion - If FOBT returns negative, will plan to consult Heme/Onc for further recommendations and possible bone marrow biopsy - Will check Iron studies as pts MCV is lower than prior hospitalizations with possible mixed anemia 2/2 GI bleed resulting in iron deficiency 2) Hypoxic Respiratory Failure 2/2 b/l pulmonary embolisms - Appears to be stable w/ patient satting 100% on her usual 4L NC - Will transition from xarelto to heparin gtt as noted above s/p discussion w/ pharmacy 3) Thrombocytosis - Likely 2/2 #2 and #4 as she has had elevated plt noted from prior admission and these have been up trending - Will continue to monitor 4) Pulmonary HTN - Cont. w/ supplemental O2 as noted above for #2 5) Uncontrolled Diabetes Mellitus - Recent A1c 14.5 from 10/10 admission - Will cont. w/ home insulin regimen w/ AC/HS accuchecks and SSI available - Diabetic Diet 6) HTN - Stable, cont. w/ home medication regimen 7) CKD 2 - Likely 2/2 #5 - Appears at baseline from prior hospitalizations CODE STATUS: Full LOS: >2 midnights Diet: HH Attending Addendum - Attending Addendum Date/Time: 12/05/17 1200 I personally evaluated the patient and discussed the management with Dr. Cummings on 12/04/2017 @2300 I agree with the History, Examination, Assessment and Plan documented above with any addition or exceptions noted below- Briefly this is a 67 year old with recent h/o b/l PE with associated pulmonary HTN, DM, HTN, CKD stage 2 who presented with increasing SOB and fatigue for the last week to 10 days. Denies any N/V, abdominal pain, change in bowels. Denies any NSAID use. Reports that currently her symptoms are improved. PMH/PSH/All/Meds/SH reviewed and agree with resident's documentation. Afebrile VSS. Exam repeated by me and agree with resident's findings. Labs: WBC= 7.2, H/H= 5.5/17.6, Iyc=641, MCV= 106; Diff=60N/ 10B/22L; Nw=831, K=3.6, Wz=211, CO2=25, BUN/Cr= 18/0.93, Xwwk=593. INR= 2.6. A/P : 1) Anemia- macrocytic, chronic but now symptomatic- transfuse 2 units pRBCs. Recheck H/H post transfusion. Plan to consult GI in AM. 2) recent PE- has been on xarelto; hold xarelto for now and use heparin for treatment as it can be reversed. 3) DM- monitor accuchecks; NPO for now for GI evaluation.
[2017-12-05] MEDS ORDERED: Dextrose 50% Abboject 50 ML SYRINGE SLOW IVP PRN (00:40)
[2017-12-05] MEDS ORDERED: HumaLOG 300 UNITS/3 ML VIAL SC PRN (00:40)
[2017-12-05] MEDS ORDERED: Heparin 10,000 UNITS/ 10 ML VIAL SLOW IVP SCH ×2 (00:40→05:00)
[2017-12-05] MEDS ORDERED: Dextrose 5% in Water 1,000 ML IV PRN (00:40)
[2017-12-05 00:41] VITALS: BMI 38.0
[2017-12-05 01:15] LABS: INR-International Normal Ratio 2.6; PTT 56.6 SEC (22.9-36.1); Prothrombin Time 28.1 SEC (12.0-14.7)
[2017-12-05 01:19] LABS: Hemoglobin 5.4 g/dL (12.0-16.0); Platelet Count 865 thou/uL (130-400)
[2017-12-05] MEDS ORDERED: Ondansetron ODT 4 MG TAB PO PRN (02:23)
[2017-12-05] MEDS ORDERED: Calcium Carbonate 500 MG ChewTAB PO PRN (02:23)
[2017-12-05] MEDS ORDERED: Benzonatate 100 MG CAP PO PRN (02:23)
[2017-12-05] MEDS ORDERED: Fluticasone Propionate Nasal Spray 16 gm Bottle NASAL PRN (02:23)
[2017-12-05] MEDS ORDERED: PROVENTIL INHALER 6.7 G (200 INHALATIONS) INH PRN (02:23)
[2017-12-05] MEDS ORDERED: Lisinopril/Hydrochlorothiazide 10 mg/12.5 mg Tablet PO PRN (02:23)
[2017-12-05] MEDS: Acetaminophen 325 MG TAB PO PRN (02:40)
[2017-12-05 06:34] LABS: Iron 79 ug/dL (50-170); Iron Binding Capacity, Total 166 mcg/dL (265-497)
[2017-12-05 06:38] LABS: ALT (SGPT) 14 U/L (8-55); AST (SGOT) 12 U/L (5-34); Albumin 3.6 g/dL (3.4-4.8); Alkaline Phosphatase 60 U/L (40-150); Anion Gap 11 mmol/L (10-20); BUN (Urea Nitrogen) 16 mg/dL (9.8-20.1); Bilirubin, Total 0.4 mg/dL (0.2-1.2); Calc. Creatinine Clearance 117 mL/min (70-130); Calcium 9.3 mg/dL (7.8-10.44); Carbon Dioxide 28 mmol/L (23-31); Chloride 104 mmol/L (98-107); Estimated GFR-MDRD 85; Glucose 99 mg/dL (80-115); Potassium 3.9 mmol/L (3.5-5.1); Protein, Total 6.6 g/dL (6.0-8.3); Sodium 139 mmol/L (136-145)
[2017-12-05] MEDS: metFORMIN 500 MG TAB PO SCH ×3 (08:14→17:29)
[2017-12-05] MEDS: Loratadine 10 MG TAB PO SCH (08:15)
--- NOTE | 2017-12-05 08:25 | PDOC.FM ---
- Subjective Subjective: Pt doing better overnight. On home dose of O2 (4L). Denies any pain or current complaints a she feels better after the transfusion. She is accepting heparin now. initially had it confused with tpa. Will start. - Objective Vital Signs & Weight: Vital Signs (12 hours) Temp Pulse Pulse Resp BP BP BP 12/05/17 07:05 98.4 F 76 15 102/56 L 12/05/17 05:45 98.4 F 71 16 102/53 L 12/05/17 05:30 98.5 F 82 16 99/54 L 12/05/17 04:50 98.0 F 74 14 100/57 L 12/05/17 04:20 98.4 F 86 16 101/52 L 12/05/17 01:33 99.0 F 94 18 113/55 L 12/05/17 00:40 12/05/17 00:36 98.4 F 91 20 132/64 Pulse Ox 12/05/17 07:05 100 12/05/17 05:45 100 12/05/17 05:30 99 12/05/17 04:50 100 12/05/17 04:20 98 12/05/17 01:33 100 12/05/17 00:40 100 12/05/17 00:36 100 Weight Weight 113.353 kg I&O: 12/04/17 12/05/17 12/06/17 06:59 06:59 06:59 Intake Total 350 Balance 350 Result Diagrams: 12/05/17 00:10 12/05/17 05:55 <Peng Madden - Last Filed: 12/05/17 09:04> - Objective Vital Signs & Weight: Vital Signs (12 hours) Temp Pulse Pulse Resp BP BP BP 12/05/17 11:00 98.3 F 56 L 17 109/54 L 12/05/17 07:05 98.4 F 76 15 102/56 L 12/05/17 05:45 98.4 F 71 16 102/53 L 12/05/17 05:30 98.5 F 82 16 99/54 L 12/05/17 04:50 98.0 F 74 14 100/57 L 12/05/17 04:20 98.4 F 86 16 101/52 L 12/05/17 01:33 99.0 F 94 18 113/55 L 12/05/17 00:40 12/05/17 00:36 98.4 F 91 20 132/64 Pulse Ox 12/05/17 11:00 100 12/05/17 07:05 100 12/05/17 05:45 100 12/05/17 05:30 99 12/05/17 04:50 100 12/05/17 04:20 98 12/05/17 01:33 100 12/05/17 00:40 100 12/05/17 00:36 100 Weight Weight 113.353 kg I&O: 12/04/17 12/05/17 12/06/17 06:59 06:59 06:59 Intake Total 350 Balance 350 Result Diagrams: 12/05/17 00:10 12/05/17 05:55 <Tanvi Jones - Last Filed: 12/05/17 12:00> Dx/Plan (1) DM2 (diabetes mellitus, type 2) Status: Acute Qualifiers: Diabetes mellitus complication status: without complication (2) DVT (deep venous thrombosis) Code(s): I82.409 - ACUTE EMBOLISM AND THOMBOS UNSP DEEP VN UNSP LOWER EXTREMITY Status: Acute (3) Diastolic dysfunction Code(s): I51.9 - HEART DISEASE, UNSPECIFIED Status: Acute (4) Pulmonary embolus Code(s): I26.99 - OTHER PULMONARY EMBOLISM WITHOUT ACUTE COR PULMONALE Status : Acute (5) Diastolic congestive heart failure Code(s): I50.30 - UNSPECIFIED DIASTOLIC (CONGESTIVE) HEART FAILURE Status: Chronic (6) GERD (gastroesophageal reflux disease) Code(s): K21.9 - GASTRO-ESOPHAGEAL REFLUX DISEASE WITHOUT ESOPHAGITIS Status: Chronic (7) HLD (hyperlipidemia) Code(s): E78.5 - HYPERLIPIDEMIA, UNSPECIFIED Status: Chronic (8) Hypertension Code(s): I10 - ESSENTIAL (PRIMARY) HYPERTENSION Status: Chronic (9) Macrocytic anemia Code(s): D53.9 - NUTRITIONAL ANEMIA, UNSPECIFIED Status: Chronic - Plan Plan: Acute on Chronic Symptomatic Macrocytic Anemia - GI bleed vs worsening anemia of chronic disease with FOBT Pending. - S/p 2 U pRBCs ordered in ED with f/u H/H. - Consult GI and NPO Chronic Hypoxic Respiratory failure 2/2 PE and COPD - 2/2 B/L PE with O2 requirement onf 4L at home on Xarelto - will transition to Heparin this AM and off of Xarelto. - Maintain sats >92% Thrombocytosis - Unknown Etiology, but elevated during past admission - Will continue to monitor with CBC DMII, uncontrolled - Newly diagnosed at last admission 09/2017 - Last Hgb A1c 10/06/17: 14.5% - Continue home Lantus 15U HS, metformin - Mild SSI - Hypoglycemic protocol - ACHS accuchecks HFpEF with ECHO 55-60% - Last Echo 10/11/17: 55-60% EF, diastolic dysfunction, severely elevated pulmonary artery pressure Pulmonary HTN - likely 2/2 chronic thromboembolic disease - Follows outpatient with Dr Rausch. Continue to monitor HTN - Hold lisinopril-HCTZ as she was hypotensive overnight Hx of CVA - Will continue Atorvastatin, ASA Hx of HI - No acute chest pain, Continue home meds GERD - Continue home omeprazole Code Status: FULL DVT ppx: Therapeutic Heparin gtt <Peng Madden - Last Filed: 12/05/17 09:04> Attending Addendum - Attending Addendum Date/Time: 12/05/17 1150 I personally evaluated the patient and discussed the management with Dr. Madden. I agree with the History, Examination, Assessment and Plan documented above with any addition or exceptions noted below - Patient feeling better. Less fatigue and SOB. Afebrile VSS. A/P: 1) Anemia- macrocytic, chronic- iron studies normal; Vitamin B12 and folate normal from past hospitalization. Will check Hgb electrophoresis. GI consult pending. May need hematology consult if GI workup negative. 2) Recent PE- continue heparin for now. If has GI bleeding, will discuss with pulmonary regarding possible need for filter. <Tanvi Jones - Last Filed: 12/05/17 12:00>
[2017-12-05] MEDS ORDERED: Prevnar 13-Val Conj/PF 0.5 ML SYRINGE IM ONE (09:00)
[2017-12-05] MEDS: Heparin 25,000 units/D5W 500 ML IVPB SCH (09:41)
[2017-12-05 12:08] LABS: Reticulocyte Count 1.8 % (0.5-1.5)
[2017-12-05 12:11] LABS: Hemoglobin 7.1 g/dL (12.0-16.0)
[2017-12-05 12:27] LABS: Band 16 % (5-11); Eosinophils 3 % (0-10); Hemoglobin 7.2 g/dL (12.0-16.0); Large Platelets SLIGHT; Lymphocytes 50 % (21-51); MDiff Complete? YES; Mean Corpuscular Hemoglobin 32.5 pg (27.0-31.0); Mean Platelet Volume 10.7 fL (7.4-10.4); Monocytes 2 % (0-10); Neutrophil 29 % (42-75); PLT Morphology Comment Appears Increased; Platelet Count 763 thou/uL (130-400); Red Blood Cell (RBC) Count 2.22 mill/uL (4.20-5.40); White Blood Cell (WBC) Count 5.5 thou/uL (4.8-10.8)
[2017-12-05 12:30] LABS: PTT Greater than 250.0 SEC (22.9-36.1)
[2017-12-05 16:12] LABS: INR-International Normal Ratio 1.5; Prothrombin Time 18.2 SEC (12.0-14.7)
[2017-12-05 16:27] LABS: PTT Greater than 250.0 SEC (22.9-36.1)
[2017-12-05 18:47] LABS: INR-International Normal Ratio 1.4; PTT 43.8 SEC (22.9-36.1); Prothrombin Time 17.2 SEC (12.0-14.7)
[2017-12-05] MEDS: Atorvastatin Calcium 40 MG TAB PO SCH (21:16)
[2017-12-05] MEDS: Insulin Glargine 14 UNITS in Pre-Filled Syringe 1 EACH SC SCH (21:23)
[2017-12-06 00:32] LABS: INR-International Normal Ratio 1.4; Prothrombin Time 17.2 SEC (12.0-14.7)
[2017-12-06 00:33] LABS: PTT 93.2 SEC (22.9-36.1)
--- NOTE | 2017-12-06 00:43 | CON ---
DATE OF CONSULTATION: 12/05/2017 REASON FOR CONSULTATION: Anemia. CONSULTING PHYSICIAN: Tanvi Jones M.D. HISTORY OF PRESENT ILLNESS: The patient is a 67-year-old -[place] female with past medical h istory of chronic hypoxic respiratory failure; pulmonary embolism, on chronic anticoagulation; pulmon geovanna hypertension; diabetes; hypertension; hyperlipidemia; history of cerebrovascular accident; bray ry artery disease/myocardial infarction; chronic kidney disease, stage 2; GERD; and chronic anemia; p resenting with worsening of her anemia. Per chart review, the patient was admitted to the hospital i n 09/2017 with the finding of deep vein thromboses and bilateral pulmonary embolism for which she was subsequently treated and placed on Xarelto as an outpatient. Since that time, she had been experien cing increased shortness of breath, but worsening over the last 2-3 days prior to admission. This wa s associated with increased weakness, mild dizziness/lightheadedness and chest pain, which prompted er to seek healthcare assistance. Upon evaluation in the [facility], she was noted to have a sign ificantly decreased H&H when compared to her previous baseline concerning for possible bleeding sourc e while on chronic anticoagulation. Upon further talking to the patient, she said that she had been having darker colored stools approximately 2-3 weeks ago, characterized as a dark green coloration th at resolved when she stopped eating spinach. She also endorses some intermittent episodes of hematoc hezia characterized as a small amount of bright red blood per rectum present only on the toilet paper , not in the toilet and would only occur when she would excessively wipe after defecation (patient wa s adamant about keeping that area clean). She subsequently placed the toilet paper with wet wipes an d with that particular change had complete resolution of the bright red blood per rectum, that resolv ed approximately a week to week and a half ago. She does endorse some mild nausea associated with th e ingestion of certain foods, but primarily associated with lack of taking a proton pump inhibitor th at she has been on chronically for acid reflux. When she does take her PPI, she does not have contin uation of this nausea. She also has right-sided rib and back pain originating from her mid back and radiating to the front. This back pain originates at the site of a prior back surgery and is relativ luis unchanged from previous. Otherwise, she denies any vomiting, fevers, chills, abdominal pain, hem atemesis, melena, hematochezia, dysphagia, odynophagia, or weight loss. REVIEW OF SYSTEMS: A 10-category review of systems was obtained with all responses negative except f or the pertinent positives as listed in the HPI. PAST MEDICAL HISTORY: As per HPI. PAST SURGICAL HISTORY: Laminectomy, herniated disk replacement, , bilateral shoulder surger ies, bilateral knee replacements. FAMILY HISTORY: Denies any GI malignancies. SOCIAL HISTORY: Denies any alcohol, tobacco or illicit drug use. OUTPATIENT MEDICATIONS: Reviewed. ALLERGIES: CERTAIN ADHESIVES, CEPHALOSPORINS, CODEINE, IODINATED CONTRAST, MEPERIDINE, NAPROXEN and PEANUTS. PHYSICAL EXAMINATION: VITAL SIGNS: Temperature 98.6, pulse 93, blood pressure 119/57, respiratory rate 14, satting 100% on 4 liters nasal cannula. GENERAL: The patient was lying in bed, in no acute distress. Alert and oriented x4. NECK: Supple. No JVD or scleral icterus noted. CARDIOVASCULAR: Regular rate and rhythm with no discernible murmurs, gallops or rubs. LUNGS: Clear to auscultation bilaterally, but it was difficult to discern wheezing as when the patie nt would inhale deeply, she would moan while doing this. ABDOMEN: Normoactive bowel sounds, soft, nontender, nondistended. EXTREMITIES: No cyanosis, clubbing or edema. LABORATORY DATA: CBC with a white blood cell count of 5.5, hemoglobin 7.2, hematocrit 22.6, platelet s 763. Chemistry with a sodium of 139, potassium 3.9, chloride 104, CO2 of 28, BUN 16, creatinine 0. 81, glucose 99, AST 12, ALT 14, alkaline phosphatase 60, total bilirubin 0.4, MCV 106. INR 105. Iro n 79, TIBC 166, ferritin 277. IMAGING DATA: Chest x-ray obtained on 12/04/2017 showed cardiomegaly, but no acute findings. ASSESSMENT AND PLAN: The patient is a 67-year-old female with past medical history of chronic hypoxi c respiratory failure; deep venous thromboses and pulmonary embolism, on chronic anticoagulation; pul monary hypertension; history of stroke; coronary artery disease/myocardial infarction; chronic kidney disease, stage 2; diabetes; hypertension; hyperlipidemia; gastroesophageal reflux disease; and chron ic anemia; presenting with worsening anemia. Anemia of chronic disease. The patient was admitted to the hospital in 09/2017 with the findings of deep vein thromboses and bilateral pulmonary emboli. She was subsequently placed on Xarelto for skiver uppers or linings jacklyn anticoagulation therapy as part of treatment for these bilateral pulmonary emboli. After dischar ge, the patient was in her usual state of health, but did endorse some increased shortness of breath and generalized weakness that worsened over the last 2-3 days prior to admission. On admission, she was noted to have a decreased H&H of 5.5 and 17.6, which was a departure from her discharge hemoglobi n of 8.1. At this point, she denies any obvious or overt signs of GI bleeding as well as having a ma crocytic anemia with normal iron, low TIBC, and normal ferritin consistent more with anemia of chroni c disease as opposed to an anemia of iron deficiency or chronic bleeding. Her BUN to creatinine rati o is also low, making upper GI bleeding source a lot less likely. She does have some intermittent he matochezia that was associated with excessive wiping of the perianal area, but this has since resolve d with the introduction of wet wipes for cleaning herself. At this time, her clinical and laboratory picture is more consistent with worsening of anemia of chronic disease versus anemia of renal diseas e, although the acute drop in her H&H while on anticoagulation is worrisome for a possible bleeding s ource. RECOMMENDATIONS: 1. We would continue to trend H&H and transfuse as necessary to maintain an H&H of 7/21. 2. We will continue to monitor clinically for signs of active gastrointestinal bleeding. 3. We will hold on endoscopic management for now given her relatively normal iron indices and anemia more consistent with anemia of chronic disease as opposed to gastrointestinal blood loss. However, if the patient continues to have a decreased H&H during this admission, we then may consider upper an d lower endoscopy for further evaluation. 4. We would continue anticoagulation given her concurrent diagnosis of pulmonary emboli. This would essentially be a challenge for any signs of GI bleeding and further help establish possible etiology of her bleeding. We will continue to follow. Please call with any questions.
[2017-12-06] MEDS: Heparin 25,000 units/D5W 500 ML IVPB SCH (04:02)
--- NOTE | 2017-12-06 05:59 | PDOC.FM ---
- Subjective Subjective: Pt doing better w/o SOB, chest pain or any complaints. Little SOB and no CP. GI has evalauted pt and does not believe it is a GI bleed. - Objective Vital Signs & Weight: Vital Signs (12 hours) Temp Pulse Resp BP Pulse Ox 12/06/17 03:20 98.3 F 89 19 95/52 L 99 12/05/17 20:11 100 12/05/17 19:56 98.6 F 93 14 119/57 L 100 Weight Weight 113.353 kg I&O: 12/04/17 12/05/17 12/06/17 06:59 06:59 06:59 Intake Total 350 400 Output Total 750 Balance 350 -350 Result Diagrams: 12/06/17 04:59 12/06/17 04:59 <Peng Madden - Last Filed: 12/06/17 07:49> - Objective Vital Signs & Weight: Vital Signs (12 hours) Temp Pulse Pulse Resp BP BP Pulse Ox 12/06/17 11:00 97.7 F 71 16 102/57 L 98 12/06/17 10:45 97.7 F 75 16 108/55 L 12/06/17 10:25 98.6 F 72 16 105/55 L 12/06/17 07:00 97.7 F 79 14 103/58 L 97 12/06/17 03:20 98.3 F 89 19 95/52 L 99 Weight Weight 113.353 kg I&O: 12/05/17 12/06/17 12/07/17 06:59 06:59 06:59 Intake Total 350 400 0 Output Total 750 Balance 350 -350 0 Result Diagrams: 12/06/17 04:59 12/06/17 04:59 <Tanvi Jones - Last Filed: 12/06/17 12:01> Phys Exam - Physical Examination Constitutional: NAD HEENT: PERRLA, moist MMs Neck: no nodes, no JVD, supple Respiratory: no wheezing, no rales, no rhonchi Cardiovascular: RRR, no significant murmur, no rub Gastrointestinal: soft, non-tender, no distention Musculoskeletal: no edema, pulses present Neurological: non-focal, normal sensation Lymphatic: no nodes Psychiatric: normal affect Skin: no rash, normal turgor <Peng Madden - Last Filed: 12/06/17 07:49> Dx/Plan (1) Macrocytic anemia Code(s): D53.9 - NUTRITIONAL ANEMIA, UNSPECIFIED Status: Chronic (2) DM2 (diabetes mellitus, type 2) Status: Acute Qualifiers: Diabetes mellitus complication status: without complication (3) DVT (deep venous thrombosis) Code(s): I82.409 - ACUTE EMBOLISM AND THOMBOS UNSP DEEP VN UNSP LOWER EXTREMITY Status: Acute (4) Diastolic dysfunction Code(s): I51.9 - HEART DISEASE, UNSPECIFIED Status: Acute (5) Pulmonary embolus Code(s): I26.99 - OTHER PULMONARY EMBOLISM WITHOUT ACUTE COR PULMONALE Status : Acute (6) Diastolic congestive heart failure Code(s): I50.30 - UNSPECIFIED DIASTOLIC (CONGESTIVE) HEART FAILURE Status: Chronic (7) GERD (gastroesophageal reflux disease) Code(s): K21.9 - GASTRO-ESOPHAGEAL REFLUX DISEASE WITHOUT ESOPHAGITIS Status: Chronic (8) HLD (hyperlipidemia) Code(s): E78.5 - HYPERLIPIDEMIA, UNSPECIFIED Status: Chronic (9) Hypertension Code(s): I10 - ESSENTIAL (PRIMARY) HYPERTENSION Status: Chronic - Plan Plan: Acute on Chronic Symptomatic Macrocytic Anemia - At this point there is no definite source of GI bleed and likely due to an acute on chronic macrocytic anemia - No need for filter as of yet. Will consult as needed - Borderline H/H, will transfuse as needed. Consult Hematology and appreciate their recs. - Heart healthy diet Chronic Hypoxic Respiratory failure 2/2 PE and COPD - 2/2 B/L PE with O2 requirement onf 4L at home stable here - continue Heparin Thrombocytosis - Unknown Etiology, but elevated during past admission and improving - Will continue to monitor with CBC DMII, uncontrolled - Newly diagnosed at last admission 09/2017 - Last Hgb A1c 10/06/17: 14.5% - Continue home Lantus 15U HS, metformin - Stable on mild SSI HFpEF - Last Echo 10/11/17: 55-60% EF, diastolic dysfunction, severely elevated pulmonary artery pressure Pulmonary HTN - likely 2/2 chronic thromboembolic disease - Follows outpatient with Dr Rausch. Continue to monitor HTN - Hold lisinopril-HCTZ as she was hypotensive overnight Hx of CVA - Will continue Atorvastatin, ASA Hx of DE - No acute chest pain, Continue home meds GERD - Continue home omeprazole <Peng Madden - Last Filed: 12/06/17 07:49> (1) Acute on chronic respiratory failure with hypoxia Code(s): J96.21 - ACUTE AND CHRONIC RESPIRATORY FAILURE WITH HYPOXIA Status: Acute (2) DM2 (diabetes mellitus, type 2) Status: Acute Qualifiers: Diabetes mellitus complication status: without complication (3) Pulmonary embolus Code(s): I26.99 - OTHER PULMONARY EMBOLISM WITHOUT ACUTE COR PULMONALE Status : Acute (4) Diastolic congestive heart failure Code(s): I50.30 - UNSPECIFIED DIASTOLIC (CONGESTIVE) HEART FAILURE Status: Chronic (5) GERD (gastroesophageal reflux disease) Code(s): K21.9 - GASTRO-ESOPHAGEAL REFLUX DISEASE WITHOUT ESOPHAGITIS Status: Chronic (6) HLD (hyperlipidemia) Code(s): E78.5 - HYPERLIPIDEMIA, UNSPECIFIED Status: Chronic (7) HTN (hypertension) Code(s): I10 - ESSENTIAL (PRIMARY) HYPERTENSION Status: Chronic (8) History of CVA (cerebrovascular accident) Code(s): Z86.73 - PRSNL HX OF TIA (TIA), AND CEREB INFRC W/O RESID DEFICITS Status: Chronic (9) History of DE (myocardial infarction) Code(s): I25.2 - OLD MYOCARDIAL INFARCTION Status: Chronic (10) Macrocytic anemia Code(s): D53.9 - NUTRITIONAL ANEMIA, UNSPECIFIED Status: Chronic <Tanvi Jones - Last Filed: 12/06/17 12:01> Attending Addendum - Attending Addendum Date/Time: 12/06/17 1155 I personally evaluated the patient and discussed the management with Dr. Madden I agree with the History, Examination, Assessment and Plan documented above with any addition or exceptions noted below- Patient denies any increased SOB. Did state she felt slightly dizzy upon ambulation to bathroom. Afebrile VSS. A/P : 1) Anemia, macrocytic- H/H decreased today; will transfuse pRBCs today. Appreciate GI assistance and now planning on scopes to evaluate GI tract as source of bleed. Also consulted Hematology. Hgb electrophoresis pending. 2) Recent PE- continue heparin drip for now until GI evaluation completed. 3) DM- stable. <Tanvi Jones - Last Filed: 12/06/17 12:01>
[2017-12-06 06:03] LABS: ALT (SGPT) 12 U/L (8-55); AST (SGOT) 12 U/L (5-34); Albumin 3.5 g/dL (3.4-4.8); Alkaline Phosphatase 58 U/L (40-150); Anion Gap 9 mmol/L (10-20); BUN (Urea Nitrogen) 14 mg/dL (9.8-20.1); Bilirubin, Total 0.3 mg/dL (0.2-1.2); Calc. Creatinine Clearance 113 mL/min (70-130); Calcium 8.8 mg/dL (7.8-10.44); Carbon Dioxide 29 mmol/L (23-31); Chloride 106 mmol/L (98-107); Estimated GFR-MDRD 81; Globulin 2.9 g/dL (2.4-3.5); Glucose 119 mg/dL (80-115); Protein, Total 6.4 g/dL (6.0-8.3); Sodium 140 mmol/L (136-145)
[2017-12-06 06:46] LABS: Hemoglobin 6.7 g/dL (12.0-16.0); Mean Corpuscular HGB CONC 31.4 g/dL (32.0-36.0); Mean Platelet Volume 10.4 fL (7.4-10.4); Platelet Count 745 thou/uL (130-400); RBC Distribution Width 28.5 % (11.5-14.5); Red Blood Cell (RBC) Count 2.09 mill/uL (4.20-5.40); White Blood Cell (WBC) Count 5.3 thou/uL (4.8-10.8)
[2017-12-06 06:47] LABS: Anisocytosis SLIGHT = 6-15 cells (100X) (0-5/hpf); Band 14 % (5-11); Eosinophils 2 % (0-10); Lymphocytes 47 % (21-51); MDiff Complete? YES; Macrocytosis SLIGHT = 6-15 cells (100X) (0-5/hpf); Monocytes 5 % (0-10); Neutrophil 32 % (42-75); PLT Morphology Comment Appears Increased
[2017-12-06 07:11] LABS: INR-International Normal Ratio 1.3; Prothrombin Time 16.6 SEC (12.0-14.7)
[2017-12-06 07:12] LABS: PTT 83.5 SEC (22.9-36.1)
[2017-12-06] MEDS: metFORMIN 500 MG TAB PO SCH ×2 (08:18→17:02)
[2017-12-06] MEDS: Loratadine 10 MG TAB PO SCH (08:18)
[2017-12-06 14:11] LABS: Platelet Count 769 thou/uL (130-400)
[2017-12-06 14:15] LABS: INR-International Normal Ratio 1.2; Prothrombin Time 15.3 SEC (12.0-14.7)
[2017-12-06 14:16] LABS: PTT 94.6 SEC (22.9-36.1)
[2017-12-06 17:56] LABS: Hemoglobin 9.9 g/dL (12.0-16.0); Platelet Count 338 thou/uL (130-400)
[2017-12-06] MEDS ORDERED: GoLYTELY 4,000 ml Bottle PO SCH (18:00)
[2017-12-06 18:01] LABS: INR-International Normal Ratio 1.2; PTT 24.4 SEC (22.9-36.1); Prothrombin Time 14.9 SEC (12.0-14.7)
--- NOTE | 2017-12-06 19:34 | ULT ---
LIMITED ABDOMINAL ULTRASOUND: History: Evaluation of spleen size. FINDINGS: Real-time imaging of the spleen shows a spleen measuring 10.9 cm in length. IMPRESSION: Spleen size of 10.9 cm. POS: [facility]
[2017-12-06] MEDS: Atorvastatin Calcium 40 MG TAB PO SCH (20:34)
--- NOTE | 2017-12-06 21:14 | CON ---
DATE OF CONSULTATION: 12/05/2017 REASON FOR CONSULTATION: Anemia and thrombocytosis. HISTORY OF PRESENT ILLNESS: This is a 67-year-old -[place] female who has been anemic since 05/2016 with hemoglobin around 10 grams. In 2016, her hemoglobin was around 9 and this year, most of the hemoglobins have been around 8. She was hospitalized this time on 12/04/2017 with hemoglobin of 5.5 gram. Her hemoglobin was 7.1 gram on 10/26/2017. The patient was also found to have macrocytos is starting 03/2015 and most of her MCV have been around 115. She also developed lymphocytosis in . She had an episode of pulmonary embolus in September of this year and was hospitalized this time on 12/04/2017 with extreme weakness and was found to have hemoglobin of 5.5 with MCV of 106, platele t count of 929,000, and WBC of 7200. Differential showed 60% neutrophils and 22% lymphocytes. Retic ulocyte was done on 12/05/2017, which was after transfusion and it was 1.8. The patient was transfus ed on 12/05/2017 and is currently receiving packed red blood cell transfusion. She denies recent ble eding from any site. She had normal colonoscopy 6 years ago done by [facility]. I believe she a lso had upper GI endoscopy. She has noted blood on tissue for few times recently, but none in the co mmode. She has lost 20 pounds of weight during the past 12 months, but has gained about 8 pounds dur ing the last 2 months. CURRENT MEDICATIONS: Aspirin, Lipitor, Tessalon, vitamin D3, Flonase, Xarelto prior to hospitalizati on, metformin, Protonix. PAST MEDICAL HISTORY: Positive for obesity, DVT and pulmonary embolism, pulmonary hypertension, type 2 diabetes, hypertension, CHF, CVA, myocardial infarction, GERD. PAST SURGICAL HISTORY: Include laparoscopic laminectomy, herniated disk replacement, , bila teral shoulder surgery, and bilateral knee replacement. SOCIAL HISTORY: The patient is a . She lives with her daughter. She does not smoke and does n ot drink. DRUGS WITH ADVERSE EFFECT: There are several drugs listed in her records that she apparently is mundo rgic to. It includes LIPITOR, CLARITIN, IV CONTRAST DYE, DEMEROL, NAPROSYN, and PEANUT. REVIEW OF SYSTEMS: The patient admits of headache. She denies of extremity weakness, diplopia , or blurred vision. Recent episode of hemoptysis. She does admit of shortness of breath and weakne ss. She had blood on tissue paper, but denies of obvious bleeding in the stool or melena. PHYSICAL EXAMINATION: GENERAL: The patient is alert and oriented. She is moderately obese at 249 pounds, height 5 feet 8 inches. HEENT: Unremarkable. LYMPHATICS: There is no peripheral lymphadenopathy in supraclavicular, axillary, or inguinal area. BREASTS: Without mass or nipple retraction. CHEST: Clear to percussion and auscultation. HEART: S1, S2. Regular rhythm. ABDOMEN: Soft. No palpable hepatosplenomegaly. Bowel sounds normal. EXTREMITIES: Without pedal edema. There is some tenderness over the left calf area, none on the rig ht side. LABORATORY DATA: CBC and chemistries have been mentioned earlier. CBC today shows WBC of 5300, hemo globin of 6.7 grams, MCV 102, and platelet count of 745,000. Differential shows 32% neutrophils, 14% bands, and 47% lymphocytes. Peripheral smear was reviewed. The most prominent feature was thromboc ytosis with some very large platelets. Red cells and wbc's were essentially unremarkable. No immatu re cells were seen. Chest x-ray showed cardiomegaly, but was otherwise negative. Ultrasound of the abdomen on 07/21/2017 showed fatty changes in the liver. There is no mention of spleen size, so, I believe this was just the right upper quadrant ultrasound and spleen was not included. Mammogram was normal in 08/2017. C hemistry profile shows normal electrolytes, BUN, creatinine. LDH on 12/04/2017 and was elevated at 4 16. ASSESSMENT AND RECOMMENDATIONS: The patient has chronic thrombocytosis and anemia with macrocytosis. This raises the possibility of a myeloproliferative/myelodysplastic syndrome as her B12 and folic a camille levels have been normal. Serum ferritin is also normal at 277. I am going to order ultrasound o f the abdomen looking for splenomegaly and we will also order JAK2 and flow cytometry. She might req uire bone marrow examination if the diagnosis cannot be made based on the studies mentioned above. Thanks very much for asking me to participate in this patient's care. The patient will be followed i the [facility] by Dr. Henderson.
[2017-12-06] MEDS: Insulin Glargine 14 UNITS in Pre-Filled Syringe 1 EACH SC SCH (21:41)
--- NOTE | 2017-12-06 23:39 | PRG ---
DATE OF SERVICE: 12/06/2017 REASON FOR CONSULTATION: Anemia. SUBJECTIVE: The patient did well overnight with no complications or events. She currently denies an y nausea, vomiting, fevers, chills, abdominal pain, or GI bleeding. However, when her labs were revi ewed this morning, there was a mild drop in her hemoglobin and hematocrit concerning for possible noble oing bleeding source. I discussed with the patient, the possibility of endoscopic evaluation and she is agreeable at this time. OBJECTIVE: VITAL SIGNS: Temperature 98.6, pulse 68, blood pressure 115/58, respiratory rate 16, satting 100% on 4 liters nasal cannula. GENERAL: Patient is lying in bed in no acute distress. Alert and oriented x4. CARDIOVASCULAR: Regular rate and rhythm with no discernible murmurs, gallops, or rubs. LUNGS: Clear to auscultation bilaterally. ABDOMEN: Normoactive bowel sounds, soft, nontender, nondistended. EXTREMITIES: No cyanosis, clubbing, or edema. LABORATORY DATA: CBC with a white blood cell count of 5.3, hemoglobin 6.7, hematocrit 21.3, platelet s 745. Chemistry with a sodium of 140, potassium 4.0, chloride 106, CO2 of 29, BUN 14, creatinine 0. 84, glucose 119. AST 12, ALT 12, alkaline phosphatase 58, total bilirubin 0.3. IMAGING DATA: No current GI imaging is available for review. ASSESSMENT AND PLAN: The patient is a 67-year-old female with past medical history of chronic hypoxi c respiratory failure, deep vein thromboses, and pulmonary emboli on chronic anticoagulation, pulmona ry hypertension, history of stroke, coronary artery disease/myocardial infarction, chronic kidney dis ease stage 2, diabetes, hypertension, hyperlipidemia, gastroesophageal reflux disease, and chronic an emia presenting with worsening of her anemia of chronic disease. Anemia of chronic disease: The patient was admitted to the hospital in 09/2017 with findings of deep vein thromboses and bilateral pulmonary emboli. She was subsequently placed on Xarelto for chronic anticoagulation therapy as part of treatment for this condition. However, since that admission, she has been noted to have a decreased H&H with her hemoglobin on this admission at 5.5, concerning for p ossible active bleeding and while she does not display any obvious or overt signs of GI bleeding, she does continue to have down trending H&H concerning for an ongoing process. Upon review of her labs, she does have normal iron and indices, low TIBC, and normal ferritin consistent more within the anem ia of chronic disease as opposed to anemia of iron deficiency or chronic bleeding. However, if she i s having acute blood loss, it may not be necessarily reflected in her iron labs just yet. RECOMMENDATIONS: 1. We would continue to trend H&H and transfuse as necessary to maintain an H&H of 09/12. 2. We would continue to monitor clinically for signs of active gastrointestinal bleeding. 3. Given her continued decrease in H&H, we will plan for both EGD and colonoscopy tomorrow morning. Would place the patient on a clear-liquid diet today with plans to make her n.p.o. at midnight in pr eparation for these procedures. 4. Please stop the heparin drip approximately 6 hours prior to the procedures. We will continue to follow. Please call with any questions.
[2017-12-07] MEDS: Acetaminophen 325 MG TAB PO PRN (00:41)
[2017-12-07 06:06] LABS: INR-International Normal Ratio 1.3; Prothrombin Time 16.4 SEC (12.0-14.7)
[2017-12-07 06:08] LABS: PTT 109.9 SEC (22.9-36.1)
--- NOTE | 2017-12-07 06:09 | PDOC.FM ---
- Subjective Subjective: Pt complains of occasional shakes in her hand. Occur randomly and are not serevely bothersome to her. VSS Did speak with GI and Heme. She is aware of their plans. - Objective Vital Signs & Weight: Vital Signs (12 hours) Temp Pulse Resp BP Pulse Ox 12/07/17 04:00 97.9 F 65 20 105/49 L 98 12/06/17 19:35 98.3 F 73 16 135/62 100 Weight Weight 113.353 kg I&O: 12/05/17 12/06/17 12/07/17 06:59 06:59 06:59 Intake Total 350 400 705 Output Total 750 450 Balance 350 -350 255 Result Diagrams: 12/07/17 04:56 12/07/17 04:56 Phys Exam - Physical Examination HEENT: PERRLA, moist MMs Neck: no nodes, no JVD, supple Respiratory: no wheezing, no rales, no rhonchi on humidified O2 Cardiovascular: RRR, no significant murmur, no rub Gastrointestinal: soft, non-tender, no distention Musculoskeletal: no edema, pulses present Neurological: non-focal, normal sensation Psychiatric: normal affect, A&O x 3 Dx/Plan (1) Macrocytic anemia Code(s): D53.9 - NUTRITIONAL ANEMIA, UNSPECIFIED Status: Chronic (2) DM2 (diabetes mellitus, type 2) Status: Acute Qualifiers: Diabetes mellitus complication status: without complication (3) DVT (deep venous thrombosis) Code(s): I82.409 - ACUTE EMBOLISM AND THOMBOS UNSP DEEP VN UNSP LOWER EXTREMITY Status: Acute (4) Diastolic dysfunction Code(s): I51.9 - HEART DISEASE, UNSPECIFIED Status: Acute (5) Pulmonary embolus Code(s): I26.99 - OTHER PULMONARY EMBOLISM WITHOUT ACUTE COR PULMONALE Status : Acute (6) Diastolic congestive heart failure Code(s): I50.30 - UNSPECIFIED DIASTOLIC (CONGESTIVE) HEART FAILURE Status: Chronic (7) GERD (gastroesophageal reflux disease) Code(s): K21.9 - GASTRO-ESOPHAGEAL REFLUX DISEASE WITHOUT ESOPHAGITIS Status: Chronic (8) HLD (hyperlipidemia) Code(s): E78.5 - HYPERLIPIDEMIA, UNSPECIFIED Status: Chronic (9) Hypertension Code(s): I10 - ESSENTIAL (PRIMARY) HYPERTENSION Status: Chronic - Plan Plan: Acute on Chronic Symptomatic Macrocytic Anemia - GI planning on Scope today around 1pm. - Heme/Onc believes she is at high risk for myelodysplasia. Will await JAK2, Flow ctyometry, and Hb electrophoresis - Monitor H/H, will transfuse as needed. Chronic Hypoxic Respiratory failure 2/2 PE and COPD - 2/2 B/L PE with O2 requirement onf 4L at home stable here - Hold Heparin for colonoscopy Thrombocytosis - Improved. Unknown Etiology, but elevated during past admission and improving - Will continue to monitor with CBC DMII, uncontrolled - Newly diagnosed at last admission 09/2017 - Last Hgb A1c 10/06/17: 14.5% - Continue home Lantus 15U HS, metformin - Stable on mild SSI HFpEF - Last Echo 10/11/17: 55-60% EF, diastolic dysfunction, severely elevated pulmonary artery pressure Pulmonary HTN - likely 2/2 chronic thromboembolic disease - Follows outpatient with Dr Rausch. Continue to monitor HTN - Hold lisinopril-HCTZ as she continues to be hypotensive Hx of CVA - Will continue Atorvastatin, ASA Hx of [place] - No acute chest pain, Continue home meds GERD - Continue home omeprazole
[2017-12-07 06:19] LABS: ALT (SGPT) 13 U/L (8-55); AST (SGOT) 17 U/L (5-34); Albumin 3.6 g/dL (3.4-4.8); Alkaline Phosphatase 63 U/L (40-150); Anion Gap 10 mmol/L (10-20); BUN (Urea Nitrogen) 7 mg/dL (9.8-20.1); Bilirubin, Total 0.4 mg/dL (0.2-1.2); Calc. Creatinine Clearance 116 mL/min (70-130); Calcium 8.7 mg/dL (7.8-10.44); Carbon Dioxide 28 mmol/L (23-31); Chloride 106 mmol/L (98-107); Estimated GFR-MDRD 85; Globulin 2.9 g/dL (2.4-3.5); Glucose 96 mg/dL (80-115); Potassium 3.4 mmol/L (3.5-5.1); Protein, Total 6.5 g/dL (6.0-8.3); Sodium 141 mmol/L (136-145)
[2017-12-07 06:34] LABS: Band 9 % (5-11); Eosinophils 6 % (0-10); Hemoglobin 8.5 g/dL (12.0-16.0); Large Platelets SLIGHT; Lymphocytes 52 % (21-51); MDiff Complete? YES; Mean Corpuscular HGB CONC 31.8 g/dL (32.0-36.0); Mean Corpuscular Hemoglobin 31.4 pg (27.0-31.0); Mean Corpuscular Volume 98.7 fL (78.0-98.0); Mean Platelet Volume 10.2 fL (7.4-10.4); Monocytes 5 % (0-10); Neutrophil 28 % (42-75); PLT Morphology Comment Appears Increased; Platelet Count 645 thou/uL (130-400); RBC Distribution Width 26.7 % (11.5-14.5); Red Blood Cell (RBC) Count 2.71 mill/uL (4.20-5.40); White Blood Cell (WBC) Count 6.1 thou/uL (4.8-10.8)
[2017-12-07] MEDS: Loratadine 10 MG TAB PO SCH (08:26)
[2017-12-07] MEDS: metFORMIN 500 MG TAB PO SCH ×2 (08:26→16:51)
[2017-12-07] MEDS ORDERED: Albuterol Sulfate 1.25 MG/3 ML NEB ONE (11:30)
--- NOTE | 2017-12-07 11:58 | PRG ---
DATE OF SERVICE: 12/07/2017 This is an addendum to the note of Dr. Peng Madden. Ms. Mendez is an interesting 67-year-old black female who was admitted with some anemia. She is cu rrently being worked up by Dr. Abraham who states that given the patient's chronic thrombocytosis, a nemia with macrocytosis with normal B12 and folate levels that the possibility of myeloproliferative disorder is possible. He is ordering an ultrasound to look for splenomegaly and is also ordering italo e flows cytometric studies as well. We await the results of these along with Dr. Abraham. Dr. Gely mosquera was also consulted and had previously stated we would hold off on endoscopic management given her n ormal indices. If she has a further significant drop, he will consider upper and lower endoscopy. W emeka will therefore follow the patient with him and Dr. Abraham.
[2017-12-07] MEDS ORDERED: Midazolam HCl 2 mg/2 ml Vial ONE (12:36)
[2017-12-07] MEDS ORDERED: Promethazine HCl 25 MG/ML VIAL IM PRN (13:33)
[2017-12-07] MEDS ORDERED: Ondansetron HCl/PF 4 MG/2 ML Vial IVP PRN (13:33)
[2017-12-07] MEDS ORDERED: Promethazine HCl 25 MG/ML VIAL SLOW IVP PRN (13:33)
--- NOTE | 2017-12-07 13:53 | OP ---
DATE OF PROCEDURE: 12/07/2017. PROCEDURES: EGD with biopsy, colonoscopy (diagnostic). INDICATION FOR PROCEDURES: Anemia, decreasing H&H concerning for blood loss. DESCRIPTION OF PROCEDURE: After the risks and benefits of the procedures were explained to the patie nt including risk of bleeding, infection, perforation, reactions to anesthesia, aspiration and/or jose n, informed consent was obtained. The patient was then taken to the endoscopy suite where deep sedat ion was administered via ketamine and anesthesia support. Once adequate sedation was achieved, the s tandard gastroscope was introduced into the mouth with intubation of the esophagus, stomach and the p roximal small intestine with the findings listed below. Upon completion of this portion of the proce dure, all equipment was removed and the bed was rotated approximately 180 degrees in preparation for colonoscopy. After a digital rectal examination was performed, standard colonoscope was introduced i nto the rectum and advanced to the terminal ileum with some degree of technical difficulty due to tor tuosity and redundancy of the colon. The quality of the prep was fair to good with a moderate amount of retained solid and liquid stool seen throughout the colon, but was amenable to irrigation. The p atient tolerated the procedure well with no immediate perioperative complications. After the procedu res, the patient was taken to PACU in satisfactory condition. EGD FINDINGS: Esophagus: Normal appearing mucosa was seen in the proximal, mid and distal esophagus. There was no evidence of erosions, ulcerations, mass lesions, or active/recent bleeding. Stomach: Normal appearing mucosa was seen in the gastric cardia, fundus, body, greater curvature, an trum, and incisura. There was no evidence of erosions, ulcerations, mass lesions or active/recent bl eeding. Duodenum: Normal appearing mucosa was seen in the duodenal bulb and second portion of the duodenum. There was no evidence of erosions, ulcerations, mass, lesions, or active/recent bleeding. Random bi opsies were taken from the duodenum for evaluation of possible celiac sprue. IMPRESSION: Normal upper endoscopy. COLONOSCOPY FINDINGS: Digital rectal exam, normal. COLON FINDINGS: Normal appearing mucosa was seen in the terminal ileum as well as within the cecum, at the ileocecal valve and appendiceal orifice. Normal appearing mucosa was seen in the ascending an d transverse colons. Scattered, small and large diverticula were seen in the distal descending and s igmoid colon consistent with moderate diverticulosis. Otherwise, the mucosa in this region appeared normal. Normal appearing mucosa was also seen in the rectum. Small internal hemorrhoids were seen o n rectal retroflexion. IMPRESSION: 1. Scattered small and large diverticula in the left colon consistent with moderate left-sided diver ticulosis. 2. Small internal hemorrhoids. 3. No etiology for the patient's anemia was seen during this examination. RECOMMENDATIONS: 1. We would continue to trend H&H and transfuse as necessary to maintain an H&H of 7/21. 2. Continue to monitor clinically for signs of GI bleeding. 3. Withdraw and consider non-GI source of her anemia given negative EGD and colonoscopy today. Give n her iron indices, again this is more indicative of an anemia of chronic disease rather than gastroi ntestinal blood loss. 4. Capsule endoscopy is not indicated at this time. We will sign off at this time. Please call with any additional questions.
[2017-12-07] MEDS: Insulin Glargine 14 UNITS in Pre-Filled Syringe 1 EACH SC SCH (20:25)
[2017-12-07] MEDS: Rivaroxaban 15 MG TAB PO SCH (20:25)
[2017-12-07] MEDS: Atorvastatin Calcium 40 MG TAB PO SCH (20:25)
[2017-12-07 23:13] LABS: Calc. Creatinine Clearance 124 mL/min (70-130); Estimated GFR-MDRD Greater than 90
[2017-12-07 23:34] LABS: Hemoglobin 8.8 g/dL (12.0-16.0); Platelet Count 667 thou/uL (130-400)
[2017-12-08 05:50] LABS: ALT (SGPT) 12 U/L (8-55); AST (SGOT) 15 U/L (5-34); Albumin 3.5 g/dL (3.4-4.8); Alkaline Phosphatase 64 U/L (40-150); Anion Gap 10 mmol/L (10-20); BUN (Urea Nitrogen) 9 mg/dL (9.8-20.1); Bilirubin, Total 0.5 mg/dL (0.2-1.2); Calc. Creatinine Clearance 115 mL/min (70-130); Calcium 8.9 mg/dL (7.8-10.44); Carbon Dioxide 27 mmol/L (23-31); Chloride 108 mmol/L (98-107); Estimated GFR-MDRD 82; Glucose 95 mg/dL (80-115); Potassium 3.8 mmol/L (3.5-5.1); Protein, Total 6.5 g/dL (6.0-8.3); Sodium 141 mmol/L (136-145)
[2017-12-08 06:11] LABS: Anisocytosis SLIGHT = 6-15 cells (100X) (0-5/hpf); Band 13 % (5-11); Eosinophils 2 % (0-10); Lymphocytes 31 % (21-51); MDiff Complete? YES; Mean Corpuscular HGB CONC 30.4 g/dL (32.0-36.0); Mean Corpuscular Hemoglobin 31.8 pg (27.0-31.0); Mean Platelet Volume 10.5 fL (7.4-10.4); Monocytes 8 % (0-10); Neutrophil 46 % (42-75); Ovalocytes SLIGHT = 2-5 cells (100X) (0-1/hpf); PLT Morphology Comment Appears Increased; Platelet Count 586 thou/uL (130-400); RBC Distribution Width 20.7 % (11.5-14.5); Red Blood Cell (RBC) Count 2.83 mill/uL (4.20-5.40); White Blood Cell (WBC) Count 4.8 thou/uL (4.8-10.8)
--- NOTE | 2017-12-08 08:22 | PDOC.FM ---
- Subjective Subjective: PT with decreased O2 demands overnight now in 2.5L. Denies complaints. - Objective Vital Signs & Weight: Vital Signs (12 hours) Temp Pulse Resp BP Pulse Ox 12/08/17 04:00 98.1 F 77 16 99/58 L 96 Weight Weight 113.942 kg I&O: 12/07/17 12/08/17 12/09/17 06:59 06:59 06:59 Intake Total 5760.1 840 Output Total 450 Balance 5310.1 840 Result Diagrams: 12/08/17 04:59 12/08/17 04:59 Phys Exam - Physical Examination Constitutional: NAD HEENT: PERRLA, moist MMs, sclera anicteric Neck: no nodes, no JVD Respiratory: no wheezing, no rales, no rhonchi Cardiovascular: RRR, no significant murmur, no rub Gastrointestinal: soft, non-tender, no distention Musculoskeletal: no edema, pulses present Neurological: non-focal, normal sensation Psychiatric: normal affect, A&O x 3 Skin: no rash, normal turgor Dx/Plan (1) Macrocytic anemia Code(s): D53.9 - NUTRITIONAL ANEMIA, UNSPECIFIED Status: Chronic (2) DM2 (diabetes mellitus, type 2) Status: Acute Qualifiers: Diabetes mellitus complication status: without complication (3) DVT (deep venous thrombosis) Code(s): I82.409 - ACUTE EMBOLISM AND THOMBOS UNSP DEEP VN UNSP LOWER EXTREMITY Status: Acute (4) Diastolic dysfunction Code(s): I51.9 - HEART DISEASE, UNSPECIFIED Status: Acute (5) Pulmonary embolus Code(s): I26.99 - OTHER PULMONARY EMBOLISM WITHOUT ACUTE COR PULMONALE Status : Acute (6) Diastolic congestive heart failure Code(s): I50.30 - UNSPECIFIED DIASTOLIC (CONGESTIVE) HEART FAILURE Status: Chronic (7) GERD (gastroesophageal reflux disease) Code(s): K21.9 - GASTRO-ESOPHAGEAL REFLUX DISEASE WITHOUT ESOPHAGITIS Status: Chronic (8) HLD (hyperlipidemia) Code(s): E78.5 - HYPERLIPIDEMIA, UNSPECIFIED Status: Chronic (9) Hypertension Code(s): I10 - ESSENTIAL (PRIMARY) HYPERTENSION Status: Chronic - Plan Plan: Acute on Chronic Symptomatic Macrocytic Anemia - Colonoscopy/EGD neg for acute hemorragic process - Heme/Onc believes she is at high risk for myelodysplasia. Will await JAK2, Flow ctyometry, and Hb electrophoresis and speak with them today. - Monitor H/H, will transfuse as needed. PT/OT Chronic Hypoxic Respiratory failure 2/2 PE and COPD - 2/2 B/L PE with O2 requirement onf 4L at home now on 2.5L O2 - Continue Xarelto Thrombocytosis - Improved. Unknown Etiology, but elevated during past admission and improving - Will continue to monitor with CBC DMII, uncontrolled - Last Hgb A1c 10/06/17: 14.5% - Continue home Lantus 15U HS, metformin - Stable on mild SSI HFpEF - Last Echo 10/11/17: 55-60% EF, diastolic dysfunction, severely elevated pulmonary artery pressure Pulmonary HTN - likely 2/2 chronic thromboembolic disease - Follows outpatient with Dr Rausch. Continue to monitor HTN - Hold lisinopril-HCTZ as she continues to be hypotensive Hx of CVA - Will continue Atorvastatin, ASA Hx of [place] - No acute chest pain, Continue home meds GERD - Continue home omeprazole DISPO: D/c home per PT recs in 1-2 days
[2017-12-08] MEDS: Rivaroxaban 15 MG TAB PO SCH ×2 (08:54→20:26)
[2017-12-08] MEDS: metFORMIN 500 MG TAB PO SCH ×2 (08:55→15:59)
[2017-12-08] MEDS: Loratadine 10 MG TAB PO SCH (08:55)
--- NOTE | 2017-12-08 11:40 | PRG ---
DATE OF SERVICE: 12/08/2017 Ms. Mendez is sitting quietly in bed, in no distress. We are continuing her workup for anemia, but it appears that it is likely a myelodysplasia. She can likely be discharged and follow up with Rajeshkaela ashy, and we will discuss this with him.
[2017-12-08 15:17] LABS: Hemoglobin A 93.4 % (96.4-98.8); Hemoglobin A2 1.6 % (1.8-3.2); Interpretation Note: (.)
[2017-12-08] MEDS: Atorvastatin Calcium 40 MG TAB PO SCH (20:26)
[2017-12-08] MEDS: Insulin Glargine 14 UNITS in Pre-Filled Syringe 1 EACH SC SCH (20:30)
--- NOTE | 2017-12-09 05:55 | PDOC.FM ---
- Subjective Subjective: No Doudenal abnormalities on biopsy. PT doing well. Will need BM biopsy outpatient. - Objective Vital Signs & Weight: Vital Signs (12 hours) Temp Pulse Resp BP Pulse Ox 12/09/17 03:15 98.4 F 84 18 109/59 L 99 12/08/17 20:00 98.5 F 70 18 124/66 99 Weight Weight 114.305 kg I&O: 12/07/17 12/08/17 12/09/17 06:59 06:59 06:59 Intake Total 5760.1 840 Output Total 450 Balance 5310.1 840 Result Diagrams: 12/09/17 04:42 12/08/17 04:59 Phys Exam - Physical Examination Constitutional: NAD HEENT: PERRLA, moist MMs, sclera anicteric Neck: no nodes, no JVD, supple Respiratory: no wheezing, no rales, no rhonchi Cardiovascular: RRR, no significant murmur, no rub on O2 Gastrointestinal: soft, non-tender, no distention Musculoskeletal: no edema, pulses present Neurological: non-focal, normal sensation Psychiatric: normal affect, A&O x 3 Skin: no rash, normal turgor Dx/Plan (1) Macrocytic anemia Code(s): D53.9 - NUTRITIONAL ANEMIA, UNSPECIFIED Status: Chronic (2) DM2 (diabetes mellitus, type 2) Status: Acute Qualifiers: Diabetes mellitus complication status: without complication (3) DVT (deep venous thrombosis) Code(s): I82.409 - ACUTE EMBOLISM AND THOMBOS UNSP DEEP VN UNSP LOWER EXTREMITY Status: Acute (4) Diastolic dysfunction Code(s): I51.9 - HEART DISEASE, UNSPECIFIED Status: Acute (5) Pulmonary embolus Code(s): I26.99 - OTHER PULMONARY EMBOLISM WITHOUT ACUTE COR PULMONALE Status : Acute (6) Diastolic congestive heart failure Code(s): I50.30 - UNSPECIFIED DIASTOLIC (CONGESTIVE) HEART FAILURE Status: Chronic (7) GERD (gastroesophageal reflux disease) Code(s): K21.9 - GASTRO-ESOPHAGEAL REFLUX DISEASE WITHOUT ESOPHAGITIS Status: Chronic (8) HLD (hyperlipidemia) Code(s): E78.5 - HYPERLIPIDEMIA, UNSPECIFIED Status: Chronic (9) Hypertension Code(s): I10 - ESSENTIAL (PRIMARY) HYPERTENSION Status: Chronic - Plan Plan: Acute on Chronic Symptomatic Macrocytic Anemia - Colonoscopy/EGD neg for acute hemorragic process - Heme/Onc believes she is at high risk for myelodysplasia. Will await JAK2, Flow ctyometry, and Hb electrophoresis and obtain bone marrow biopsy outpatient. - PT/OT Chronic Hypoxic Respiratory failure 2/2 PE and COPD - 2/2 B/L PE with O2 requirement onf 4L at home now on 2.5L O2 - Continue Xarelto Thrombocytosis - Improved. Unknown Etiology, but elevated during past admission and improving - Will continue to monitor with CBC and BM biopsy. DMII, uncontrolled - Last Hgb A1c 10/06/17: 14.5% - Continue home Lantus 15U HS, metformin - Stable on mild SSI HFpEF - Last Echo 10/11/17: 55-60% EF, diastolic dysfunction, severely elevated pulmonary artery pressure Pulmonary HTN - likely 2/2 chronic thromboembolic disease - Follows outpatient with Dr Rausch. Continue to monitor HTN - Hold lisinopril-HCTZ as she continues to be hypotensive Hx of CVA - Will continue Atorvastatin, ASA Hx of [place] - No acute chest pain, Continue home meds GERD - Continue home omeprazole DISPO: D/c home
[2017-12-09 06:20] LABS: Band 14 % (5-11); Eosinophils 8 % (0-10); Large Platelets SLIGHT; Lymphocytes 34 % (21-51); MDiff Complete? YES; Mean Corpuscular HGB CONC 30.6 g/dL (32.0-36.0); Mean Corpuscular Hemoglobin 31.3 pg (27.0-31.0); Mean Platelet Volume 10.1 fL (7.4-10.4); Monocytes 2 % (0-10); Neutrophil 42 % (42-75); PLT Morphology Comment Appears Increased; Platelet Count 638 thou/uL (130-400); RBC Distribution Width 19.9 % (11.5-14.5); Red Blood Cell (RBC) Count 2.87 mill/uL (4.20-5.40); White Blood Cell (WBC) Count 4.9 thou/uL (4.8-10.8)
[2017-12-09] MEDS: Rivaroxaban 15 MG TAB PO SCH (09:20)
[2017-12-09] MEDS: metFORMIN 500 MG TAB PO SCH ×2 (09:20→17:35)
[2017-12-09] MEDS: Loratadine 10 MG TAB PO SCH (09:25)
[2017-12-09] MEDS: Acetaminophen 325 MG TAB PO PRN (12:01)
--- NOTE | 2017-12-09 13:43 | PRG ---
DATE OF SERVICE: 12/09/2017 SUBJECTIVE: Ms. Mendez is sitting quietly, in no distress. We are awaiting studies regarding her anemia, but she will be discharged later today and have an outpatient bone marrow. She will follow u p with Hematology. She will also follow up with her liquor gallery operator regarding her oxygen needs.
[2017-12-09 16:25] VITALS: BP 133/60; TEMP 97.3
--- NOTE | 2017-12-10 12:51 | DIS-2 ---
DATE OF ADMISSION: 12/04/2017 DATE OF DISCHARGE: 12/09/2017 RESIDENT: Peng Madden D.O. ADMITTING ATTENDING: Dr. Tanvi Jones DISCHARGE ATTENDING: Dr. David Newby CONSULTATIONS: Dr. Henderson, Hematology; Dr. Guan, Gastroenterology. PROCEDURES: EGD/colonoscopy negative for acute hemorrhagic process. PRIMARY DIAGNOSIS: Acute on chronic macrocytic anemia. SECONDARY DIAGNOSES: 1. Chronic hypoxic respiratory failure secondary to pulmonary embolism and chronic obstructive pulmo nary disease. 2. Bilateral pulmonary embolism. 3. Chronic obstructive pulmonary disease. 4. Type 2 diabetes mellitus. 5. Heart failure with preserved ejection fraction. 6. Pulmonary hypertension. 7. Essential hypertension. 8. History of cerebrovascular accident. 9. History of myocardial infarction. 10. Gastroesophageal reflux disease. HISTORY OF PRESENT ILLNESS/HOSPITAL COURSE: This 67-year-old female initially presented to the [facility] ency room weak and short of breath. Her initial hemoglobin was found to be 5.7 in which she was give n 2 units of packed red blood cells. During her stay, she was also given another 2 liters of packed red blood cells. She also underwent colonoscopy and EGD which did not reveal any acute process. Man y blood studies were performed and Hematology was consulted for her macrocytic anemia. It was determ ined that she would need a bone marrow biopsy which could not be performed in the hospital as she was on aspirin and Xarelto. Her recent medical history includes bilateral pulmonary embolism diagnosed about a month and a half ago in which she is on Xarelto 20 mg nightly. This should be discontinued 4 8 hours prior to her bone marrow biopsy and aspirin should be discontinued 7 days prior to the bone m arrow biopsy. In addition, she is on oxygen at home for her pulmonary embolism in which she usually requires 4 liters, but was only requiring 2.5 liters during hospital stay. She did perform a walking exertional assessment on her last day, but she desaturated to 87% O2 and she was discharged on her h ome oxygen. She sees Dr. Rausch in the outpatient setting for Pulmonology. Overall, she was hospitalized for acute anemia, given several transfusions, and will require a bone m arrow biopsy for diagnosis of a suspected myeloproliferative disorder. She will have a bone marrow b iopsy next week and then follow up with Dr. Henderson 1 week after. DISCHARGE CONDITION: Stable. DISCHARGE INSTRUCTIONS: 1. Location: Home. 2. Diet: Regular, heart healthy. 3. Activity: Ad binu. 4. Followup: Follow up Dr. Rausch in 1 week, Dr. Henderson 1 week after her bone marrow biopsy. Holli w kylie at [facility] for bone marrow biopsy.
--- NOTE | 2017-12-12 11:44 | EKG ---
Test Reason : Blood Pressure : / mmHG Vent. Rate : 108 BPM Atrial Rate : 108 BPM P-R Int : 130 ms QRS Dur : 094 ms QT Int : 342 ms P-R-T Axes : 031 024 080 degrees QTc Int : 458 ms Sinus tachycardia Nonspecific ST and T wave abnormality Abnormal ECG Baseline Artifact Present Confirmed by THOMAS LOZANO MD ([id number]), acquisition editor KHALIF CARDONA ([id number]) on 12/12/2017 11:44:02 AM Referred By: Confirmed By:THOMAS LOZANO MD
== END 2017-12-09 18:18 | disposition home or self-care (01) | DRG 811 ==
LOC: ERS 20:44 → 2NO 22:46
PROVIDERS: ADMIT Family Medicine; ATTEND Family Medicine
PROC: 30233N1 Transfusion of Nonautologous Red Blood Cells into Peripheral Vein, Percutaneous Approach (ICD-10-PCS; 2017-12-05)
PROC: 0DB98ZX Excision of Duodenum, Via Natural or Artificial Opening Endoscopic, Diagnostic (ICD-10-PCS; principal; 2017-12-07)
PROC: 0DJD8ZZ Inspection of Lower Intestinal Tract, Via Natural or Artificial Opening Endoscopic (ICD-10-PCS; 2017-12-07)
DX: D53.9 Nutritional anemia, unspecified (principal); J96.21 Acute and chronic respiratory failure with hypoxia; I26.99 Other pulmonary embolism without acute cor pulmonale; I50.32 Chronic diastolic (congestive) heart failure; I13.0 Hypertensive heart and chronic kidney disease with heart failure and stage 1 through stage 4 chronic kidney disease, or unspecified chronic kidney disease; I82.409 Acute embolism and thrombosis of unspecified deep veins of unspecified lower extremity; K57.30 Diverticulosis of large intestine without perforation or abscess without bleeding; K64.8 Other hemorrhoids; I27.20 Pulmonary hypertension, unspecified; E78.5 Hyperlipidemia, unspecified; K21.9 Gastro-esophageal reflux disease without esophagitis; E11.22 Type 2 diabetes mellitus with diabetic chronic kidney disease; N18.2 Chronic kidney disease, stage 2 (mild); D47.3 Essential (hemorrhagic) thrombocythemia; E11.65 Type 2 diabetes mellitus with hyperglycemia; Z79.82 Long term (current) use of aspirin; Z79.4 Long term (current) use of insulin; Z79.01 Long term (current) use of anticoagulants; I25.2 Old myocardial infarction; Z86.73 Personal history of transient ischemic attack (TIA), and cerebral infarction without residual deficits; Z96.653 Presence of artificial knee joint, bilateral; Z82.49 Family history of ischemic heart disease and other diseases of the circulatory system
CPT/HCPCS: 36415; 36416; 36430; 71045; 76705; 80053; 81270; 82553; 82728; 83021; 83540; 83550; 83615; 84484; 85014; 85018; 85025; 85046; 85049; 85610; 86850; 86900; 86901; 88305; 90471; 90662; 90670; 93005; 94060; 94727; 94729; G0008; G0009; G8978-GP-CL; G8979-GP-CJ; J1644; J2250; P9016

== ENCOUNTER → 2017-12-15 | Day surgery (SDC) | payer MEDICARE ==
[2017-12-14 12:47] VITALS: BMI 37.8
[~2017-12-15] MED LIST: Fentanyl 100 MCG/2 ML VIAL ONE; Midazolam HCl 2 mg/2 ml Vial ONE; Prevnar 13-Val Conj/PF 0.5 ML SYRINGE IM ONE; Sodium Bicarbonate 2.5 MEQ/5 ML VIAL ONE
[2017-12-15 11:35] VITALS: BP 125/73; TEMP 97.3
--- NOTE | 2017-12-15 14:13 | CT ---
CT GUIDED BONE MARROW ASPIRATION AND BONE MARROW BIOPSY: Date; 12/15/17 HISTORY: Myelodysplastic syndrome. TECHNIQUE/FINDINGS: Informed consent was obtained from the patient. The right iliac bone was localized using CT guidance. The overlying skin was prepped and draped in the usual sterile manner. A 1% lidocaine solution was u sed to anesthetize the overlying soft tissues. A small dermatotomy was made. An 11 gauge Jamshidi nee dle was placed into the right iliac crest. Initial bone marrow aspiration was attempted. The patient had dry bone marrow and would not release any of the bone marrow aspirate. Subsequently, a single 11 gauge core bone biopsy specimen was obtained. Postprocedure, no significant hemorrhage was seen. IMPRESSION: Successful CT guided bone marrow aspiration and core biopsy. POS: MARIUSZ
== END ==
LOC: CT 08:57
PROVIDERS: ATTEND Family Medicine
PROC: 0QB23ZX Excision of Right Pelvic Bone, Percutaneous Approach, Diagnostic (ICD-10-PCS; principal; 2017-12-15)
DX: D46.9 Myelodysplastic syndrome, unspecified (principal); Z79.01 Long term (current) use of anticoagulants; Z79.4 Long term (current) use of insulin; Z79.899 Other long term (current) drug therapy; Z88.1 Allergy status to other antibiotic agents; Z88.5 Allergy status to narcotic agent; Z88.6 Allergy status to analgesic agent; Z88.8 Allergy status to other drugs, medicaments and biological substances; Z91.010 Allergy to peanuts; Z91.040 Latex allergy status; Z91.048 Other nonmedicinal substance allergy status
CPT/HCPCS: 20225; 77012; 88305; 88311; 88313; 88341; 88342; J2250; J3010

== ENCOUNTER 2017-12-30 19:30 | Outpatient (CLI) | payer MEDICARE | END 2017-12-30 19:31 | disposition home or self-care (01) | LOC: SLEEPLAB 19:30 | PROVIDERS: ATTEND Internal Medicine | DX: G47.33 Obstructive sleep apnea (adult) (pediatric) (principal); R53.83 Other fatigue; R51 Headache; E66.9 Obesity, unspecified; K21.9 Gastro-esophageal reflux disease without esophagitis; R06.83 Snoring; R35.1 Nocturia; I10 Essential (primary) hypertension; E11.9 Type 2 diabetes mellitus without complications; R09.02 Hypoxemia; Z68.37 Body mass index [BMI] 37.0-37.9, adult | CPT/HCPCS: 95806 ==

== ENCOUNTER 2018-02-27 11:54 | Inpatient (IN) | payer MEDICARE ==
[2018-02-27 12:39] LABS: Hemoglobin 3.7 g/dL (12.0-16.0); Mean Corpuscular HGB CONC 31.3 g/dL (32.0-36.0); Mean Corpuscular Hemoglobin 27.4 pg (27.0-31.0); Mean Corpuscular Volume 87.7 fL (78.0-98.0); Mean Platelet Volume 10.6 fL (7.4-10.4); Platelet Count 1119 thou/uL (130-400); Red Blood Cell (RBC) Count 1.34 mill/uL (4.20-5.40)
[2018-02-27 12:47] LABS: ALT (SGPT) 22 U/L (8-55); AST (SGOT) 15 U/L (5-34); Albumin 4.1 g/dL (3.4-4.8); Alkaline Phosphatase 77 U/L (40-150); Anion Gap 16 mmol/L (10-20); BUN (Urea Nitrogen) 16 mg/dL (9.8-20.1); Bilirubin, Total 0.7 mg/dL (0.2-1.2); Calc. Creatinine Clearance 0 mL/min (70-130); Calcium 9.2 mg/dL (7.8-10.44); Carbon Dioxide 25 mmol/L (23-31); Chloride 102 mmol/L (98-107); Estimated GFR-MDRD 78; Globulin 3.4 g/dL (2.4-3.5); Glucose 103 mg/dL (80-115); Potassium 3.6 mmol/L (3.5-5.1); Protein, Total 7.5 g/dL (6.0-8.3); Sodium 139 mmol/L (136-145)
[2018-02-27 12:53] LABS: Acanthocytes SLIGHT = 1-5 cells (100X) (None Seen); Anisocytosis MODERATE=16-30 cells (100X) (0-5/hpf); Band 2 % (5-11); Elliptocytes SLIGHT = 2-5 cells (100X) (0-1/hpf); Eosinophils 2 % (0-10); Hypochromia SLIGHT = 6-15 cells (100X) (0-5/hpf); Large Platelets SLIGHT; Lymphocytes 43 % (21-51); MDiff Complete? YES; Monocytes 1 % (0-10); Neutrophil 52 % (42-75); PLT Morphology Comment Appears Increased; Poikilocytosis SLIGHT = 6-15 cells (100X) (0-5/hpf)
[2018-02-27 13:06] LABS: INR-International Normal Ratio 2.3; Prothrombin Time 25.1 SEC (12.0-14.7)
[2018-02-27 13:10] LABS: Reticulocyte Count 3.7 % (0.5-1.5)
--- NOTE | 2018-02-27 13:35 | PDOC.FPRHP ---
- History of Present Illness Chief Complaint: low Hgb 3.3 on 02/26/17 History of Present Illness: The patient is a 67YO AAF with a PMH significant for chronic macrocytic anemia, HFpEF, pulmonary HTN, and DMII who presented to the ED after being called today being told that her Hgb drawn yesterday at her PCP's office was 3.3. The patient and her daughter report a functional decline that has been progressively worsening since around . Per the daughter, the patient is not to the point where she cannot even walk from her bedroom to the bathroom without assistance. Other than the generalized weakness, the patient also endorses central chest pain/pressure that radiates into her B/L neck and jaws and is exacerbated by movement and talking. She endorse some associated SOB & nausea but denies any vomiting, melena, or hematochezia. Also denies any fever, chills, night sweats, or weight loss. Actually endorses weight gain. Of note, the patient was recently admitted this past November for acute on chronic symptomatic anemia and given 4 units of PRBCs during that admission as her Hgb was 5.7 on presentation. She was also found to have a saddle embolus and was started on Xarelto which she is still compliant with. She has had an extensive workup for anemia on an inpatient and outpatient basis including labs to r/o AI causes and a BM biopsy that was inconclusive. ED Course: Patient was given 2 units of PRBCs. - Allergies/Adverse Reactions Allergies Allergy/AdvReac Type Severity Reaction Status Date / Time adhesive Allergy Verified 12/14/17 12:29 aspirin Allergy Verified 02/27/18 17:20 cefazolin sodium [From Ancef] Allergy Rash Verified 12/14/17 12:29 Cephalosporins Allergy Rash Verified 12/14/17 12:29 codeine Allergy Hives Verified 12/14/17 12:29 Iodinated Contrast- Oral and Allergy Emesis Verified 12/14/17 12:29 IV Dye [Iodinated Contrast Media - IV Dye] meperidine HCl [From Demerol] Allergy Rash Verified 12/14/17 12:29 naproxen sodium [From Aleve] Allergy "chest Verified 12/14/17 12:29 pain" peanut Allergy Verified 12/14/17 12:29 - Home Medications Medication Instructions Recorded Confirmed Type Omeprazole 20 mg PO DAILY 11/04/16 02/27/18 History Albuterol Sulfate HFA (OR) 2 puff INH TID PRN 10/06/17 02/27/18 History [Proventil Hfa (or)] Atorvastatin Calcium [Lipitor] 80 mg PO HS 10/06/17 02/27/18 History Cholecalciferol (Vitamin D3) 600 unit PO DAILY 10/06/17 02/27/18 History [Vitamin D3] Loratadine [Claritin] 10 mg PO DAILY 10/06/17 02/27/18 History Triamcinolone Acetonide [Nasacort 2 spray EA NARE DAILY PRN 10/06/17 02/27/18 History Allergy 24 HR] Ondansetron [Zofran ODT] 4 mg PO Q6H PRN #30 tab 10/09/17 02/27/18 Rx metFORMIN HCl 500 mg PO BID-WM 12/05/17 02/27/18 History Rivaroxaban [Xarelto] 20 mg PO HS 12/09/17 02/27/18 History Hydrochlorothiazide 25 mg PO DAILY PRN 02/27/18 02/27/18 History Insulin Glargine [Lantus Vial] 12 units SC HS 02/27/18 02/27/18 History - History PMHx: PSHx: FHx: Social: - Review of Systems General: reports: weight/appetite/sleep changes. denies: fever/chills, night sweats Eyes: denies: eye pain ENT: denies: nasal congestion Respiratory: reports: shortness of breath. denies: cough Cardiovascular: reports: chest pain, edema, orthopnea Gastrointestinal: reports: nausea, diarrhea. denies: vomiting, GI bleeding Genitourinary: reports: other (no hematuria). denies: dysuria Skin: reports: rashes, itching Musculoskeletal: reports: pain. denies: tenderness Neurological: reports: syncope. denies: seizure - Vital signs BP: 131/68 HR: 77 RR: 20 Tmax: 98.2F Pox: 100% on RA Wt: 117.70kg - Physical Exam Constitutional: NAD (had difficulty speaking 2/2 dyspnea that improved once sitting up in the bed), awake, alert and oriented, well developed, other HEENT: normocephalic and atraumatic, grossly normal vision, grossly normal hearing, MMM -HEENT: conjunctival pallor Neck: supple, FROM Chest: no lesions -Chest: TTP in right chest Heart: RRR, normal S1/S2, other (1+ pitting edema in B/L feet and trace edema up to knees) Lungs: CTAB, no respiratory distress, no rales/rhonchi, no wheezing, no retractions, other (poor air movement, especially in RLL) Abdomen: soft, non-tender, bowel sounds present Musculoskeletal: normal structure, ROM grossly normal Neurological: no focal deficit Skin: good turgor, capillary refill <2 seconds, no jaundice, other (intertrigo noted under pannus along upper pubic border) Heme/Lymphatic: no unusual bruising or bleeding, no purpura, no petechia Psychiatric: normal mood and affect, good judgment and insight, intact recent and remote memory FMR H&P: Results - Labs Result Diagrams: 02/27/18 12:21 02/27/18 12:21 Lab results: WBC 5.0 thou/uL (4.8-10.8) 02/27/18 12:21 Hgb 3.7 g/dL (12.0-16.0) L* 02/27/18 12:21 Hct 11.8 % (36.0-47.0) L* 02/27/18 12:21 MCV 87.7 fL (78.0-98.0) 02/27/18 12:21 Plt Count 1119 thou/uL (130-400) H* 02/27/18 12:21 Band Neuts % (Manual) 2 % (5-11) L 02/27/18 12:21 Sodium 139 mmol/L (136-145) 02/27/18 12:21 Potassium 3.6 mmol/L (3.5-5.1) 02/27/18 12:21 Chloride 102 mmol/L (98-107) 02/27/18 12:21 Carbon Dioxide 25 mmol/L (23-31) 02/27/18 12:21 BUN 16 mg/dL (9.8-20.1) 02/27/18 12:21 Creatinine 0.87 mg/dL (0.6-1.1) 02/27/18 12:21 Glucose 103 mg/dL (80-115) 02/27/18 12:21 Calcium 9.2 mg/dL (7.8-10.44) 02/27/18 12:21 Total Bilirubin 0.7 mg/dL (0.2-1.2) 02/27/18 12:21 AST 15 U/L (5-34) 02/27/18 12:21 ALT 22 U/L (8-55) 02/27/18 12:21 Alkaline Phosphatase 77 U/L (40-150) 02/27/18 12:21 Serum Total Protein 7.5 g/dL (6.0-8.3) 02/27/18 12:21 Albumin 4.1 g/dL (3.4-4.8) 02/27/18 12:21 - EKG Interpretation EKG: NSR - Radiology Interpretation Chest x-ray Status: report reviewed by me (pulmonary vascular congestion with cardiomegaly) FMR H&P: A/P - Problem List (1) Acute on chronic respiratory failure with hypoxia Current Visit: No Status: Acute Code(s): J96.21 - ACUTE AND CHRONIC RESPIRATORY FAILURE WITH HYPOXIA (2) DM2 (diabetes mellitus, type 2) Current Visit: No Status: Acute Qualifiers: Diabetes mellitus complication status: without complication (3) Diastolic dysfunction Current Visit: No Status: Acute Code(s): I51.9 - HEART DISEASE, UNSPECIFIED (4) Pulmonary embolus Current Visit: No Status: Acute Code(s): I26.99 - OTHER PULMONARY EMBOLISM WITHOUT ACUTE COR PULMONALE (5) Diastolic congestive heart failure Current Visit: No Status: Chronic Code(s): I50.30 - UNSPECIFIED DIASTOLIC ( CONGESTIVE) HEART FAILURE (6) GERD (gastroesophageal reflux disease) Current Visit: No Status: Chronic Code(s): K21.9 - GASTRO-ESOPHAGEAL REFLUX DISEASE WITHOUT ESOPHAGITIS (7) HLD (hyperlipidemia) Current Visit: No Status: Chronic Code(s): E78.5 - HYPERLIPIDEMIA, UNSPECIFIED (8) HTN (hypertension) Current Visit: No Status: Chronic Code(s): I10 - ESSENTIAL (PRIMARY) HYPERTENSION (9) History of CVA (cerebrovascular accident) Current Visit: No Status: Chronic Code(s): Z86.73 - PRSNL HX OF TIA (TIA), AND CEREB INFRC W/O RESID DEFICITS (10) History of ID (myocardial infarction) Current Visit: No Status: Chronic Code(s): I25.2 - OLD MYOCARDIAL INFARCTION (11) Macrocytic anemia Current Visit: No Status: Chronic Code(s): D53.9 - NUTRITIONAL ANEMIA, UNSPECIFIED (12) Symptomatic anemia Current Visit: Yes Status: Acute Code(s): D64.9 - ANEMIA, UNSPECIFIED - Plan 67YOF w/ a PMH significant for macrocytic anemia, DMII, pulmonary HTN, and HFpEF who presented for evaluation in the ED after being called by her PCP due to a Hgb level of 3.3 in clinic yesterday. Symptomatic Anemia: - Hgb of 3.3 on 02/26/17 and 3.7 on presentation today. - HD stable with normal vitals. Satting 100% on 4L O2 via nasal canula. - 4 units of PRBCs ordered in the ED and 2 already given. - Heme/Onc, Dr. Malik, consulted in the ED. Appreciate recs. - Will give 4 units and recheck a CBC in the AM. Will give 1 dose of 40mg IV after second unit and another after 4th unit is complete to prevent volume overload due to h/o CHF. - No concern for acute active bleeding as patient had a full endoscopic workup in November that was negative and is HD stable suggesting a more chronic process causing her anemia. Will therefore continue home dose of Xarelto. - Will continue to monitor vitals closely. Chronic macrocytic anemia: - Aware, patient has had an extensive workup since previous admission. - Will likely need a repeat BM biopsy but will await recs from Heme/Onc who is on the case. Appreciate recs. - Will monitor Hgb w/ QD CBCs. HFpEF: - Will resume home meds and give IV lasix with transfusions and PRN for worsening SOB. - Will start on HH, low sodium diet. DMII: - Will hold metformin tonight but will resume in the AM. Will resume home lantus dose. - Will also order mild SSI, ACHS accuchecks, and CC diet. HTN: - Aware, will resume home meds. HLD: - Will resume home meds. GERD: - Will resume home meds. FMR H&P: Upper Level - Pertinent history 67 y/o F with HFrEF, PEs on Anticoagulant, chronic anemia presents with SOB. She was seen in clinic 2d ago and CBC was drawn and noted to have a Hb of 3 and was called this AM and requested to go to the ED. She admits to not feeling well since [place]. Sx include SOB, weakness, CP, near syncope, and LE edema that all began around Feb 16. She denies any vomiting blood, dark or bloody stools. Her anemia has been worked up with indeterminate BM biopsy recently. She is also anticoagulated as she developed PEs several months ago and has required O2 since that time. Of note, she was started on HCTZ 2d ago for volume overload - Pertinent findings As above. Hb 3.7. CXR shows no pulmonary edema although Bl LE edema 1+ Diminished breath sounds b/l. - Plan Date/Time: 02/27/18 0335 IPeng, have evaluated this patient and agree with findings/plan as outlined by industrial design intern resident. Pertinent changes/additions are listed here. A/P: Acute on Chronic Anemia - Macrocytic that has been recently worked up with inconclusive BM Bx. Patients VS have been stable since being in the ED. Acutely , her Hb is 3.7 and in need of transfusion and has 4u PRBCs ordered. We will consult Heme/Onc for this problem. Will also closely monitor her VS and H/H and give empiric Lasix. Per ED physician, Dr Malik to see today. B/L PEs - Continue Xarelto and await recs from Heme/Onc. No evidence of acute hemorrhage. HFpEF - Does appear to be volume overloaded. Will continue HCTZ and monitor weight gain. Consult cardiology as we are unsure why Dr Wang recently d/cd her Lisinopril/HCTZ. Also, will order Lasix after 1st unit and continue as she is already volume overloaded. Chronic Hypoxic Respiratory failure 2/2 PE and COPD - 2/2 B/L PE with O2 requirement on 4L at home DMII, uncontrolled - Continue home Lantus 12U HS, hold metformin Pulmonary HTN - likely 2/2 chronic thromboembolic disease; Follows outpatient with Dr Rausch. Continue to monitor HTN- On HCTZ as she continues to be hypotensive Hx of CVA- Will continue Atorvastatin, ASA Hx of ID - Negative trops and EKG. Will trend trops. Continue home meds. Nikolas has costochondritis that is causing chest pain vs demand ischemic pain. GERD- Continue home omeprazole Addendum - Attending - Attending Attestation Date/Time: 02/27/18 7753 I personally evaluated the patient and discussed the management with Dr. Vega/ [place]. I agree with the History, Examination, Assessment and Plan documented above with any addition or exceptions noted below. Patient with history of suspected MDS and chronic anemia here with worsening symptoms of shortness of breath, fatigue, dizziness, and weakness of the last few weeks. Denies blood loss as melena, hematochezia, hematemesis, and had normal colonoscopy/EGD during last hospitalization. She was seen in our clinic yesterday for follow up where labs were obtained. Today we were contacted with critical Hgb which led to patient presentation. On arrival, Hct 11 and Plt > 1000. Her other labs are overall stable from previous admissions. Patient is being admitted for symptomatic acute on chronic nonregenerative normocytic anemia suspected due to some unspecified blood dyscrasia. She has no evidence of active bleeding and is currently hemodynamically stable. Will transfuse to get H/H to 09/12 and trend H/H periodically. Do not have suspicion for GI loss at this time. She also has a worsening thrombocytosis that could be reactive in nature or 2/2 the suspected hematologic abnormality. Will discuss case with Hematology who has evaluated her before. Previous bone marrow biopsy was non revealing due to "Dry tap". We will need to monitor her closely for volume overload given her history of CHF and pHTN, consider lasix in between units of blood. Admit to telemetry. Renal function stable.
[2018-02-27] MEDS ORDERED: Dextrose 50% Abboject 50 ML SYRINGE SLOW IVP PRN (14:33)
[2018-02-27] MEDS ORDERED: Dextrose 5% in Water 1,000 ML IV PRN (14:33)
[2018-02-27] MEDS ORDERED: Ondansetron ODT 4 MG TAB PO PRN ×2 (14:33→18:14)
[2018-02-27] MEDS ORDERED: Acetaminophen 325 MG TAB PO PRN (14:33)
[2018-02-27] MEDS ORDERED: HumaLOG 300 UNITS/3 ML VIAL SC PRN (14:38)
--- NOTE | 2018-02-27 15:59 | RAD ---
CHEST 1 VIEW: Date: 02/27/18 HISTORY: Shortness of breath. COMPARISON: Radiograph dated 12/04/17. FINDINGS: Heart size is enlarged. Mild pulmonary venous congestion. No pneumothorax. No effusion. Right reverse total shoulder arthroplasty and left hemiarthroplasty of the shoulder. IMPRESSION: Cardiomegaly and mild pulmonary venous congestion. POS: [facility]
[2018-02-27] MEDS ORDERED: Furosemide 40 MG/4 ML VIAL SLOW IVP SCH ×2 (17:45)
[2018-02-27] MEDS ORDERED: Furosemide 40 MG/4 ML VIAL ONE (18:10)
[2018-02-27] MEDS ORDERED: Hydrochlorothiazide 25 MG TAB PO PRN (18:14)
[2018-02-27] MEDS ORDERED: Fluticasone Propionate Nasal Spray 16 gm Bottle NASAL PRN (18:14)
[2018-02-27] MEDS ORDERED: PROVENTIL INHALER 6.7 G (200 INHALATIONS) INH PRN (18:14)
[2018-02-27] MEDS ORDERED: Insulin Glargine 12 UNITS in Pre-Filled Syringe SC SCH (21:00)
[2018-02-27] MEDS ORDERED: Atorvastatin Calcium 40 MG TAB PO SCH (21:00)
[2018-02-27] MEDS ORDERED: Rivaroxaban 10 MG TAB PO SCH (21:00)
[2018-02-28] MEDS: Nystatin Powder 15 GM BOT TOP SCH ×2 (00:01→17:27)
--- NOTE | 2018-02-28 00:26 | CON ---
DATE OF CONSULTATION: 02/27/2018 REASON FOR CONSULTATION: Anemia and thrombocytosis. HISTORY OF PRESENT ILLNESS: This is a 67-year-old female, who was seen by me on 12/06/2017 for microcytic anemia and thrombocytosis. At that time she was admitted with a hemoglobin of 5.5 and her MCV was 115. Her evaluation were; normal ferritin and ultrasound of the abdomen showing no hepatosplenomegaly. The patient did have bone marrow aspirate biopsy. However, there was no aspirate as the bone marrow was dry tap. The core biopsy also was suboptimal with bone marrow. Flow cytometry could not be performed. JAK2 mutation peripheral blood was negative and the patient is being admitted again with hemoglobin of 3 and her platelet count of 1.1 million. WBCs of 5000 with differential showing 52% neutrophils and 43% lymphocytes. Retic count is 3.7%. ASSESSMENT AND RECOMMENDATION: This patient has primary bone marrow disorder. Her last bone marrow was too scanty for proper interpretation. She will need another bone marrow aspirate and biopsy. Hopefully, the biopsy specimen will be enough for proper interpretation. Thank you very much for asking me to participate in this patient's care. Job ID: [id number]
[2018-02-28 00:35] VITALS: BMI 39.2
[2018-02-28] MEDS ORDERED: Furosemide 40 MG/4 ML VIAL SLOW IVP SCH ×2 (05:00→09:45)
[2018-02-28] MEDS ORDERED: Meclizine HCl 25 MG TAB PO PRN (05:45)
--- NOTE | 2018-02-28 05:47 | PDOC.FM ---
- Subjective Subjective: NAEO. Patient reports improvement in her SOB and states she feels better overall. Denies any pain, fever, or chills. - Objective MAR Reviewed: Yes Vital Signs & Weight: Vital Signs (12 hours) Temp Pulse Pulse Resp BP BP Pulse Ox 02/28/18 04:31 99.9 F H 79 18 122/67 02/28/18 03:45 99.1 F 75 114/59 L 97 02/28/18 03:00 99.2 F 76 18 118/56 L 02/28/18 02:30 99.6 F 82 82 18 125/68 120/60 02/28/18 01:00 98.8 F 78 18 122/68 97 02/28/18 00:10 98.9 F 76 18 122/60 02/28/18 00:00 98.2 F 78 18 122/67 98 02/27/18 23:45 98.2 F 77 18 128/70 96 02/27/18 23:10 98 02/27/18 22:24 83 18 110/65 98 02/27/18 20:07 99.8 F H 71 16 122/57 L 98 Weight Weight 119.295 kg I&O: 02/26/18 02/27/18 02/28/18 06:59 06:59 06:59 Intake Total 0 Output Total 3000 Balance -3000 Result Diagrams: 02/28/18 07:28 02/28/18 07:28 Phys Exam - Physical Examination Constitutional: NAD HEENT: moist MMs Neck: supple, full ROM Respiratory: no wheezing, no rales, no rhonchi Cardiovascular: RRR blowing systolic murmur heard best in left upper chest Gastrointestinal: soft Musculoskeletal: edema present (1+ pitting edema in B/L feet) Neurological: non-focal, moves all 4 limbs Psychiatric: normal affect, A&O x 3 Skin: normal turgor Dx/Plan (1) Acute on chronic respiratory failure with hypoxia Code(s): J96.21 - ACUTE AND CHRONIC RESPIRATORY FAILURE WITH HYPOXIA Status: Acute (2) DM2 (diabetes mellitus, type 2) Status: Acute Qualifiers: Diabetes mellitus complication status: without complication (3) Diastolic dysfunction Code(s): I51.9 - HEART DISEASE, UNSPECIFIED Status: Acute (4) Pulmonary embolus Code(s): I26.99 - OTHER PULMONARY EMBOLISM WITHOUT ACUTE COR PULMONALE Status : Acute (5) Diastolic congestive heart failure Code(s): I50.30 - UNSPECIFIED DIASTOLIC (CONGESTIVE) HEART FAILURE Status: Chronic (6) GERD (gastroesophageal reflux disease) Code(s): K21.9 - GASTRO-ESOPHAGEAL REFLUX DISEASE WITHOUT ESOPHAGITIS Status: Chronic (7) HLD (hyperlipidemia) Code(s): E78.5 - HYPERLIPIDEMIA, UNSPECIFIED Status: Chronic (8) HTN (hypertension) Code(s): I10 - ESSENTIAL (PRIMARY) HYPERTENSION Status: Chronic (9) History of CVA (cerebrovascular accident) Code(s): Z86.73 - PRSNL HX OF TIA (TIA), AND CEREB INFRC W/O RESID DEFICITS Status: Chronic (10) History of MD (myocardial infarction) Code(s): I25.2 - OLD MYOCARDIAL INFARCTION Status: Chronic (11) Macrocytic anemia Code(s): D53.9 - NUTRITIONAL ANEMIA, UNSPECIFIED Status: Chronic (12) Symptomatic anemia Code(s): D64.9 - ANEMIA, UNSPECIFIED Status: Acute - Plan Plan: 67YOF w/ a PMH significant for macrocytic anemia, DMII, pulmonary HTN, and HFpEF who presented for evaluation in the ED after being called by her PCP due to a Hgb level of 3.3 in clinic yesterday. Symptomatic Anemia: - Hgb of 3.3 on 02/26/17 and 3.7 on presentation. Repeat Hgb up to 7.6 this AM s/ p 4 units of PRBCs. - HD stable with normal vitals. Satting 100% and now only on 2L O2 via nasal canula vs. 4 on admission. - Heme/Onc, Dr. Abraham, consulted in the ED. Recommended a repeat BM biopsy. Will touch base with Leigh today to see when that can be scheduled and if she may want IR to do it as an inpatient rather than undergoing another outpatient attempt. - No concern for acute active bleeding as patient had a full endoscopic workup in November that was negative and is HD stable suggesting a more chronic process causing her anemia. Will therefore continue home dose of Xarelto. - Will continue to monitor vitals closely & check an EPO level today. Chronic macrocytic anemia 2/2 suspected bone marrow disorder: - Aware, patient has had an extensive workup since previous admission. - Will lneed a repeat BM biopsy per Heme/Onc who is on the case as patient most likely has a primary BM disorder. Appreciate recs. - Will monitor Hgb w/ QD CBCs. HFpEF: - Will resume home meds and give IV lasix with transfusions and PRN for worsening SOB. - Will start on HH, low sodium diet & get strict I&Os and daily weights. DMII: - Will continue home meds. - Will also order mild SSI, ACHS accuchecks, and CC diet. HTN: - Aware, will resume home meds. HLD: - Will resume home meds. GERD: - Will resume home meds. Addendum - Attending - Attending Attestation Date/Time: 02/28/18 7043 I personally evaluated the patient and discussed the management with Dr. Vega. I agree with the History, Examination, Assessment and Plan documented above with any addition or exceptions noted below. Patient feeling much better today. Hgb responded appropriately and is s/p 4 units PRBC transfusion. No current complaints. She has a nonregenerative anemia suspect bone marrow failure due to possible myelodysplastic syndrome. Hematology on board, desires repeat biopsy and will work to arrange that tomorrow. Trend H/H. Will check erythropoetin level to ensure that is not cause as other causes of nonregeneration have been successfully excluded over the last few hospitalizations. Monitor for evidence of volume overload but currently doing well.
[2018-02-28 07:46] LABS: Hemoglobin 7.6 g/dL (12.0-16.0); Mean Corpuscular HGB CONC 33.5 g/dL (32.0-36.0); Mean Corpuscular Hemoglobin 29.2 pg (27.0-31.0); Mean Corpuscular Volume 87.2 fL (78.0-98.0); Mean Platelet Volume 10.3 fL (7.4-10.4); Platelet Count 968 thou/uL (130-400); RBC Distribution Width 27.9 % (11.5-14.5); Red Blood Cell (RBC) Count 2.58 mill/uL (4.20-5.40); White Blood Cell (WBC) Count 5.2 thou/uL (4.8-10.8)
[2018-02-28 07:55] LABS: Anion Gap 13 mmol/L (10-20); BUN (Urea Nitrogen) 17 mg/dL (9.8-20.1); Calc. Creatinine Clearance 105 mL/min (70-130); Calcium 9.2 mg/dL (7.8-10.44); Carbon Dioxide 27 mmol/L (23-31); Chloride 101 mmol/L (98-107); Estimated GFR-MDRD 71; Glucose 78 mg/dL (80-115); Potassium 3.2 mmol/L (3.5-5.1); Sodium 138 mmol/L (136-145)
[2018-02-28] MEDS ORDERED: Potassium Chloride 20 MEQ TAB PO SCH (08:00)
[2018-02-28 08:02] LABS: Anisocytosis MODERATE=16-30 cells (100X) (0-5/hpf); Band 18 % (5-11); Eosinophils 4 % (0-10); Large Platelets MODERATE; Lymphocytes 46 % (21-51); MDiff Complete? YES; Neutrophil 32 % (42-75); PLT Morphology Comment Appears Increased
[2018-02-28] MEDS: metFORMIN 500 MG TAB PO SCH ×2 (08:48→17:27)
[2018-02-28] MEDS ORDERED: Meclizine HCl 25 MG TAB PO SCH (09:00)
[2018-02-28] MEDS ORDERED: Cholecalciferol (Vitamin D3) 400 UNITS TAB PO SCH (09:00)
[2018-02-28] MEDS ORDERED: Loratadine 10 MG TAB PO SCH (09:00)
[2018-02-28 15:45] VITALS: BP 125/63; TEMP 97.6
--- NOTE | 2018-03-01 12:47 | DIS ---
DATE OF ADMISSION: 02/27/2018 DATE OF DISCHARGE: 02/28/2018 RESIDENT: Dr. Liberty Vega. ADMITTING ATTENDING: Dr. Martin Gomes. DISCHARGE ATTENDING: Dr. Martin Gomes. CONSULTS: Hematology/Oncology, Dr. Aletha Abraham. PROCEDURES: Chest x-ray on 02/27/2018, which showed cardiomegaly and mild pulmonary venous congestion. PRIMARY DIAGNOSES: 1. Severe symptomatic anemia. 2. Hypokalemia. SECONDARY DIAGNOSES: 1. Chronic normocytic anemia. 2. Type 2 diabetes mellitus. 3. History of cerebrovascular accident. 4. History of myocardial infarction. 5. Hypertension. 6. Hyperlipidemia. 7. Gastroesophageal reflux disease. 8. Heart failure, preserved ejection fraction. 9. History of pulmonary embolism, on Xarelto. 10. Chronic respiratory failure with hypoxia. DISCHARGE MEDICATIONS: 1. Omeprazole 20 mg p.o. daily. 2. Claritin 10 mg p.o. daily. 3. Vitamin D3 600 units p.o. daily. 4. Triamcinolone acetonide two sprays in each ear daily p.r.n. 5. Albuterol sulfate HFA two puffs inhaled t.i.d. p.r.n. 6. Atorvastatin 80 mg p.o. at h.s. 7. Zofran 4 mg p.o. every 6 hours p.r.n. for nausea and vomiting. 8. Metformin 500 mg p.o. b.i.d. with meals. 9. Xarelto 20 mg p.o. at h.s. 10. Hydrochlorothiazide 25 mg p.o. daily p.r.n. 11. Meclizine 25 mg p.o. q.i.d. p.r.n. 12. Lantus 12 units subcu at h.s. 13. Tylenol 650 mg p.o. q.4 hours p.r.n. for pain. 14. Nystatin powder one application topically t.i.d. DISCONTINUED MEDICATIONS: None. HOSPITAL COURSE: The patient is a 67-year-old female with a past medical history significant for chronic normocytic anemia secondary to a presumed myelodysplastic disorder, history of [place], hypertension, and heart failure with preserved ejection fraction, who presented to the emergency room after being called by her primary care physician's office who informed her that her hemoglobin was extremely low at a level of 3.3 from lab work drawn on 02/26/2018. On arrival to the emergency department, the patient and her daughter reported that she had had a significant functional decline since and endorsed chest pain and increased shortness of breath with increased home O2 requirements up to 4 to 5 L continuously as opposed to her normal 2 L at rest and 4 L with ambulation. Of note, the patient was recently admitted on 12/04/2017 and noted to be severely anemic at that point in time with a hemoglobin level as low as 5 and was transfused 4 units at that time. That brought her hemoglobin up to the level of 9 by her date of discharge. She has had an extensive workup regarding the source of her anemia and all lab work including iron studies, itamin levels, and AI tests have been negative. She also had a bone marrow biopsy attempted on 12/15/2017; however, this was unsuccessful and noted to be a dry tap. Upon presentation to the emergency department, the patient's hemoglobin was noted to be 3.7; however, her vitals were noted to be within normal limits with the exception of requiring 4 L of oxygen to maintain O2 saturations in the low 90s, which was above her baseline oxygen requirements. She was therefore ordered to be given 4 units of packed red blood cells. The patient was moved to the floor where she continued to receive blood products, but was given prophylactic doses of 40mg of IV Lasix after the second and fourth units to prevent volume overload due to her h/o CHF and some mild pitting edema noted in her lower extremities on presentation. Later that evening, Bilingual Secretary/Oncologist, Dr. Abraham, came and evaluated the patient and recommended a repeat bone marrow aspirate and biopsy as her anemia was most likely 2/2 a myelodysplastic disorder. The patient was monitored closely on the floor overnight and the following morning the patient's hemoglobin was noted to have risen to 7.6. Dr. Abraham was notified of the rise in the patient's hemoglobin and stated that since the patient was HD stable, she could be discharged home after receiving one additional unit with close follow-up with Hematology/Oncology, Dr. Cortes Henderson in order to schedule a repeat bone marrow biopsy. Regarding the patient's hypokalemia, after receiving 80 mg of IV Lasix on the day of presentation, the following morning the patient's potassium was noted to be slightly low at 3.2. She was therefore given 40 mEq PO the morning of her discharge and instructed to follow- up closely with her PCP. DISPOSITION: Stable. DISCHARGE INSTRUCTIONS: 1. Location: Home. 2. Diet: Diabetic diet, fluid restriction diet, heart healthy diet. 3. Activity: Activity as tolerated. 4. Follow-up: The patient was instructed to follow up with Dr. Cortes Henderson, swimming pool attendant/oncologist within one week of discharge as well as her primary care provider, Dr. Елена Atwood, within 1 week and/or following her appointment with Dr. Henderson. Job ID: [id number] MTDD
== END 2018-02-28 18:22 | disposition home or self-care (01) | DRG 811 ==
LOC: ERS 11:54 → ERHOLD 13:34 → 2NO 22:59
PROVIDERS: ADMIT Student in an Organized Health Care Education/Training Program; ATTEND Student in an Organized Health Care Education/Training Program
PROC: 30233N1 Transfusion of Nonautologous Red Blood Cells into Peripheral Vein, Percutaneous Approach (ICD-10-PCS; principal; 2018-02-27)
DX: D53.9 Nutritional anemia, unspecified (principal); J96.21 Acute and chronic respiratory failure with hypoxia; I50.30 Unspecified diastolic (congestive) heart failure; E11.9 Type 2 diabetes mellitus without complications; K21.9 Gastro-esophageal reflux disease without esophagitis; E78.5 Hyperlipidemia, unspecified; I12.9 Hypertensive chronic kidney disease with stage 1 through stage 4 chronic kidney disease, or unspecified chronic kidney disease; Z86.73 Personal history of transient ischemic attack (TIA), and cerebral infarction without residual deficits; I25.2 Old myocardial infarction; D47.3 Essential (hemorrhagic) thrombocythemia; E87.6 Hypokalemia; Z86.711 Personal history of pulmonary embolism; Z79.01 Long term (current) use of anticoagulants
CPT/HCPCS: 36415; 36416; 36430; 71045; 80048; 80053; 82668; 83615; 84484; 85025; 85046; 85060; 85610; 85730; 86850; 86900; 86901; 93005; J1940; P9016

== ENCOUNTER 2018-03-15 08:22 | Day surgery (SDC) | payer MEDICARE ==
[2018-03-12 11:06] VITALS: BMI 38.3
[~2018-03-15 08:22] MED LIST changes: -Fentanyl 100 MCG/2 ML VIAL ONE; -Midazolam HCl 2 mg/2 ml Vial ONE; -Sodium Bicarbonate 2.5 MEQ/5 ML VIAL ONE
[2018-03-15 08:56] LABS: INR-International Normal Ratio 1.2; PTT 39.4 SEC (22.9-36.1); Prothrombin Time 15.4 SEC (12.0-14.7)
[2018-03-15 09:12] LABS: Acanthocytes SLIGHT = 1-5 cells (100X) (None Seen); Anisocytosis SLIGHT = 6-15 cells (100X) (0-5/hpf); Band 2 % (5-11); Differential Comment Immature Cell(s); Eosinophils 4 % (0-10); Hemoglobin 8.4 g/dL (12.0-16.0); Lymphocytes 43 % (21-51); MDiff Complete? YES; Mean Corpuscular HGB CONC 32.9 g/dL (32.0-36.0); Mean Corpuscular Hemoglobin 30.2 pg (27.0-31.0); Mean Corpuscular Volume 91.8 fL (78.0-98.0); Mean Platelet Volume 10.7 fL (7.4-10.4); Monocytes 8 % (0-10); Neutrophil 40 % (42-75); Platelet Count 830 thou/uL (130-400); Platelet Morphology Comment Appears Increased; RBC Distribution Width 17.5 % (11.5-14.5); Reactive Lymphocytes 1 % (0-10); Red Blood Cell (RBC) Count 2.78 mill/uL (4.20-5.40); Reflex for Review?? YES
[2018-03-15] MEDS ORDERED: Sodium Chloride 0.9% 10 ML ONE (09:14)
[2018-03-15] MEDS ORDERED: Midazolam HCl 2 mg/2 ml Vial ONE (09:50)
[2018-03-15] MEDS ORDERED: Fentanyl 100 MCG/2 ML VIAL ONE (09:50)
[2018-03-15] MEDS ORDERED: Sodium Bicarbonate 2.5 MEQ/5 ML VIAL ONE (09:50)
[2018-03-15 10:09] VITALS: BP 119/71; TEMP 98.4
--- NOTE | 2018-03-15 15:45 | CT ---
LEFT ILIAC WING BIOPSY: History: Patient with history of anemia refractory. FINDINGS: Patient has had a previous unsuccessful left iliac wing biopsy. Informed consent was obtained from the patient. The right iliac wing was prepped and draped in the main campus medical center sterile manner. A 1% Lidocaine solution was used to anesthetize the overlying soft tissues. A sma ll dermatotomy was made. The left iliac wing was localized using CT guidance. The overlying skin was prepped and draped in the usual sterile manner. A 1% Lidocaine solution was used to anesthetize the o verlying soft tissues. The left iliac wing was accessed using an 11 gauge needle. 15 ml of bone marro w aspirated obtained. This was followed by a core biopsy of the bone. IMPRESSION: Successful left iliac wing bone marrow aspiration and core biopsy. POS: MARIUSZ
== END 2018-03-15 12:15 | disposition home or self-care (01) ==
LOC: CT 08:22
PROVIDERS: ATTEND Internal Medicine Hematology & Oncology
PROC: 07DR3ZX Extraction of Iliac Bone Marrow, Percutaneous Approach, Diagnostic (ICD-10-PCS; principal; 2018-03-15)
DX: D46.4 Refractory anemia, unspecified (principal); D47.3 Essential (hemorrhagic) thrombocythemia; Z91.09 Other allergy status, other than to drugs and biological substances; Z88.6 Allergy status to analgesic agent; Z88.1 Allergy status to other antibiotic agents; Z88.5 Allergy status to narcotic agent; Z91.041 Radiographic dye allergy status; Z91.010 Allergy to peanuts; Z79.4 Long term (current) use of insulin; Z79.899 Other long term (current) drug therapy
CPT/HCPCS: 20225; 36415; 77012; 85025; 85060; 85097; 85610; 85730; 88184; 88237; 88264; 88280; 88305; 88311; 88313; 88341; 88342; J2250; J3010

== ENCOUNTER 2018-03-29 20:30 | Outpatient (CLI) | payer MEDICARE | END 2018-03-29 20:31 | disposition home or self-care (01) | LOC: SLEEPLAB 20:30 | PROVIDERS: ATTEND Internal Medicine | DX: G47.33 Obstructive sleep apnea (adult) (pediatric) (principal); R09.02 Hypoxemia | CPT/HCPCS: 95810 ==

== ENCOUNTER 2018-06-01 11:56 | Outpatient (CLI) | payer MEDICARE ==
--- NOTE | 2018-06-01 14:03 | CT ---
CT OF THE THORAX WITHOUT IV CONTRAST: Date: 06/01/18 INDICATION: Fall, pulmonary nodules. COMPARISON: Prior CTA of the thorax from [facility] dated 10/12/[address] aortic dissection protocol dated . FINDINGS: There is new hazy air space opacity seen within the left suprahilar region, as well as within the lef t suprahilar region, lingula, and left lower lobe, which may reflect an area of mild pneumonitis. Pul monary nodules within the right and left lung have been stable since 2013. The largest measures 6.3 m m within the right upper lobe on image 27 of series 3. The next largest pulmonary nodule measures 5.0 mm in the right lower lobe. No new pulmonary nodules are demonstrated. There are coronary artery thoracic aortic calcifications. The visualized upper abdomen demonstrates a 2.0 cm left hepatic lobe cyst. The adrenal glands appear within normal limits. There is scattered degenerative and osteoarthritic change. No acute osseous abnormality is evident. IMPRESSION: 1. Pulmonary nodules seen within the right and left lung have been stable since 2012 and are benign. 2. New patchy areas of ground-glass and reticular opacity within both upper lobes in the suprahilar regions, as well as the inferior lingula and left lower lobe, may reflect sequelae of an atypical inf ections process or an inflammatory process. Recommend correlation and CT follow-up. 3. Stable left hepatic lobe cyst. POS: ROMEO
== END 2018-06-01 11:57 | disposition home or self-care (01) ==
LOC: ULT 11:56
PROVIDERS: ATTEND Internal Medicine
DX: R91.8 Other nonspecific abnormal finding of lung field (principal); I27.20 Pulmonary hypertension, unspecified; I26.99 Other pulmonary embolism without acute cor pulmonale; K76.89 Other specified diseases of liver; I08.1 Rheumatic disorders of both mitral and tricuspid valves
CPT/HCPCS: 71250; 93306

== ENCOUNTER 2018-06-07 18:48 | Emergency (ER) | payer MEDICARE ==
[2018-06-07 19:18] LABS: Hemoglobin 7.3 g/dL (12.0-16.0); Mean Corpuscular HGB CONC 32.7 g/dL (32.0-36.0); Mean Corpuscular Hemoglobin 30.2 pg (27.0-31.0); Mean Corpuscular Volume 92.3 fL (78.0-98.0); Mean Platelet Volume 11.1 fL (7.4-10.4); Platelet Count 455 thou/uL (130-400); RBC Distribution Width 15.3 % (11.5-14.5); Red Blood Cell (RBC) Count 2.41 mill/uL (4.20-5.40); White Blood Cell (WBC) Count 3.3 thou/uL (4.8-10.8)
[2018-06-07 19:31] LABS: ALT (SGPT) 16 U/L (8-55); AST (SGOT) 13 U/L (5-34); Albumin 3.9 g/dL (3.4-4.8); Alkaline Phosphatase 72 U/L (40-150); Anion Gap 11 mmol/L (10-20); BUN (Urea Nitrogen) 12 mg/dL (9.8-20.1); Bilirubin, Total 0.2 mg/dL (0.2-1.2); Calc. Creatinine Clearance 0 mL/min (70-130); Calcium 9.6 mg/dL (7.8-10.44); Carbon Dioxide 30 mmol/L (23-31); Chloride 103 mmol/L (98-107); Estimated GFR-MDRD Greater than 90; Globulin 3.4 g/dL (2.4-3.5); Glucose 121 mg/dL (80-115); Potassium 3.4 mmol/L (3.5-5.1); Protein, Total 7.3 g/dL (6.0-8.3); Sodium 141 mmol/L (136-145)
[2018-06-07 19:38] LABS: Anisocytosis SLIGHT = 6-15 cells (100X) (0-5/hpf); Band 5 % (5-11); Eosinophils 1 % (0-10); Large Platelets SLIGHT; Lymphocytes 73 % (21-51); MDiff Complete? YES; Neutrophil 21 % (42-75); Platelet Morphology Comment Appears Increased
--- NOTE | 2018-06-07 19:55 | RAD ---
Exam: Chest one view portable: HISTORY: Dyspnea COMPARISON: 02/27/2018 FINDINGS: Minimal cardiomegaly. Bilateral shoulder replacement changes. No confluent pneumonia, overt edema, pl eural effusion or other acute process. IMPRESSION: Stable appearing cardiomegaly and mild vascular congestion. No confluent lobar pneumonia or other new process.
[2018-06-07 20:05] LABS: CK (CPK) 119 U/L (29-168); Lipase 34 U/L (8-78)
== END 2018-06-07 23:00 | disposition home or self-care (01) ==
LOC: ERS 18:48
DX: D64.9 Anemia, unspecified (principal); E78.5 Hyperlipidemia, unspecified; I11.0 Hypertensive heart disease with heart failure; I50.9 Heart failure, unspecified; I25.2 Old myocardial infarction; Z86.711 Personal history of pulmonary embolism; Z86.73 Personal history of transient ischemic attack (TIA), and cerebral infarction without residual deficits; Z79.4 Long term (current) use of insulin; Z79.899 Other long term (current) drug therapy
CPT/HCPCS: 36430; 71045; 80053; 82550; 83690; 83880; 84484; 85025; 86850; 86900; 86901; 86920; 93005; 94760; 99285; P9016; 36415

== ENCOUNTER 2018-09-06 08:57 | Outpatient (CLI) | payer MEDICARE ==
--- NOTE | 2018-09-06 10:05 | MMO ---
Bilateral MAMMO Bilat Screen [facility]. CLINICAL HISTORY: Patient is 68 years old and is seen for screening. The patient has no family history of breast cancer. The patient has no personal history of cancer. VIEWS: The views performed were: bilateral craniocaudal with tomosynthesis and bilateral mediolateral oblique with tomosynthesis. FILMS COMPARED: The present examination has been compared to prior imaging studies performed at [facility] on 08/04/2013, 07/23/2016, 08/07/2016 and 09/02/2017. MAMMOGRAM FINDINGS: There are scattered fibroglandular densities. There are no suspicious masses, suspicious calcifications, or new areas of architectural distortion. IMPRESSION: THERE IS NO MAMMOGRAPHIC EVIDENCE OF MALIGNANCY. A ROUTINE FOLLOW-UP MAMMOGRAM IN 1 YEAR IS RECOMMENDED. THE RESULTS OF THIS EXAM WERE SENT TO THE PATIENT. ACR BI-RADS Category 1 - Negative MAMMOGRAPHY NOTE: 1. A negative mammogram report should not delay a biopsy if a dominant of clinically suspicious mass is present. 2. Approximately 10% to 15% of breast cancers are not detected by mammography. 3. Adenosis and dense breasts may obscure an underlying neoplasm. Reported by: ANDREW DIALLO MD Electonically Signed: [id number]
== END 2018-09-06 08:58 | disposition home or self-care (01) ==
LOC: BICMAMMO 08:57
PROVIDERS: ATTEND Student in an Organized Health Care Education/Training Program
DX: Z12.31 Encounter for screening mammogram for malignant neoplasm of breast (principal)
CPT/HCPCS: 77063; 77067

== ENCOUNTER 2018-11-30 12:23 | Outpatient (CLI) | payer MEDICARE ==
[2018-11-30 14:10] LABS: Actual Bicarbonate (HCO3a) 26.6 mEq/L (22-28); Analyzer IN Cardio OR; Base Excess (BEa) 1.7 mEq/L (-2.0 to +3.0); CO2 Tension 42.9 mmHg (35.0-45.0); Calcium, Ionized 1.16 mmol/L (1.12-1.30); Carboxyhemoglobin (COHb) 0.3 gm% (0.0-3.0); Hemoglobin (Hb) 12.7 g/dL (12.0-16.0); O2 Tension (PaO2) 70.9 mmHg (> 70.0); Potassium - ABG Lab 4.21 mmol/L (3.70-5.30); pH, Arterial 7.41 (7.35-7.45)
[2018-11-30 14:11] LABS: ALV-art Gradient 25.205 (0-20); Puncture Site RRA
--- NOTE | 2018-12-01 15:06 | PFT ---
PATIENT HISTORY: HEIGHT:67.5 WEIGHT: 238 SMOKER: NEVER HOW LONG: NA PACKS PER DAY: PRODUCTIVE COUGH: LUNG DISEASE: PHYSICIAN INTERPRETATION FINAL REPORT: Patient had good effort and good cooperation. PFT data: pH 7.41, PCO2 43, Po2 71, corresponding of saturation 95% FVC 2.14 (77%), FEV1 1.60 (74%) DIFFUSION 5.63 (27%) The pH and PCO2 fall within the normal limits. The PO2 is slightly reduced, but corresponds to a normal saturation. This was performed on room air. FEV1 and FVC are minimally impaired. The ratio is normal suggesting this is a restrictive air flow limitation. This was perviously confirmed with lung volumes. The diffusion capacity is severely impaired. IMPRESSION: Overall, these pulmonary function studies are consistent with minimal hypoxic respiratory failure at rest on room air, mild restrictive lung disease, with severely reduced diffusion capacity. Clinical correlation is recommended. Outside Barrel Lathe Operator: VAIBHAV Roving Technician: VAIBHAV ARTEAGA
== END 2018-11-30 12:24 | disposition home or self-care (01) ==
LOC: CP 12:23
PROVIDERS: ATTEND Internal Medicine
DX: R06.09 Other forms of dyspnea (principal); I27.20 Pulmonary hypertension, unspecified; I26.99 Other pulmonary embolism without acute cor pulmonale; R94.2 Abnormal results of pulmonary function studies; J98.4 Other disorders of lung
CPT/HCPCS: 82805; 94060; 94727; 94729

== ENCOUNTER 2018-12-14 13:09 | Outpatient (CLI) | payer MEDICARE | END 2018-12-14 13:10 | disposition home or self-care (01) | LOC: DTY/OP 13:09 | PROVIDERS: ATTEND Family Medicine | DX: E11.9 Type 2 diabetes mellitus without complications (principal) | CPT/HCPCS: 97802 ==

== ENCOUNTER 2020-08-29 08:16 | Outpatient (CLI) | payer MEDICARE | END 2020-08-29 08:17 | disposition home or self-care (01) | LOC: BICMAMMO 08:16 | PROVIDERS: ATTEND Student in an Organized Health Care Education/Training Program | DX: Z13.820 Encounter for screening for osteoporosis (principal) | CPT/HCPCS: 77080 ==

== ENCOUNTER 2020-10-08 09:46 | Outpatient (CLI) | payer MEDICARE | END 2020-10-08 09:47 | disposition home or self-care (01) | LOC: BICMAMMO 09:46 | PROVIDERS: ATTEND Family Medicine | DX: Z12.31 Encounter for screening mammogram for malignant neoplasm of breast (principal) | CPT/HCPCS: 77063; 77067 ==

== ENCOUNTER 2021-07-19 06:49 | Outpatient (CLI) | payer MEDICARE | END 2021-07-19 06:50 | disposition home or self-care (01) | LOC: BICULT 06:49 | PROVIDERS: ATTEND Internal Medicine Hematology & Oncology | DX: R79.89 Other specified abnormal findings of blood chemistry (principal); K80.70 Calculus of gallbladder and bile duct without cholecystitis without obstruction; K76.89 Other specified diseases of liver | CPT/HCPCS: 76700 ==

== ENCOUNTER 2021-10-10 11:27 | Outpatient (CLI) | payer MEDICARE | END 2021-10-10 11:28 | disposition home or self-care (01) | LOC: BICMAMMO 11:27 | PROVIDERS: ATTEND Internal Medicine | DX: Z12.31 Encounter for screening mammogram for malignant neoplasm of breast (principal) | CPT/HCPCS: 77063; 77067 ==

== ENCOUNTER 2021-10-23 08:31 | Outpatient (CLI) | payer MEDICARE | END 2021-10-23 08:32 | disposition home or self-care (01) | LOC: BICULT 08:31 | PROVIDERS: ATTEND Internal Medicine | DX: N63.20 Unspecified lump in the left breast, unspecified quadrant (principal); R92.8 Other abnormal and inconclusive findings on diagnostic imaging of breast | CPT/HCPCS: 77065; G0279 ==